=== PATIENT | male | born 1955 | race Caucasian/White ===

== ENCOUNTER → 2016-03-30 | Outpatient (REF) | payer BC ==
[~2016-03-30] MED LIST: AMLO5TAB2 PO; ASPI81TA85 PO; ATOR1TAB21 PO; ATOR40TA PO; CELE-19 PO; GABA300C3 PO; IBUP800T23 PO; METO-346 PO; METO12TA PO; NEUR300C PO; OMEP20CA3 PO; OXYC15TA66 PO; PEG1POW PO; PERCOCET PO; RIFA300C3 PO; VANC10005 INJ; ZANA4TAB PO
== END ==
LOC: MERGE 14:29 → M LAB REF 14:29
PROVIDERS: ATTEND Internal Medicine
DX: R35.8 Other polyuria (principal)

== ENCOUNTER → 2016-03-30 | Outpatient (REF) | payer BC ==
[2016-03-30 15:17] LABS: BASO % 0.2 % (0.0-1.0); EOS # 0.5 K/mm3 (0.0-0.50); EOS % 8.1 % (0.0-3.0); LARGE UNSTAINED CELL # 0.1 K/mm3 (0.0-0.4); LARGE UNSTAINED CELL % 1.4 % (0.0-4.0); LYMPH # 1.5 K/mm3 (1.5-4.5); LYMPH % 23.1 % (24.0-44.0); MEAN CORPUSCULAR HEMOGLOBIN 28.6 pg (27.0-33.0); MEAN CORPUSCULAR HGB CONC 33.3 g/dl (32.0-36.5); MEAN CORPUSCULAR VOLUME 85.9 fl (80.0-96.0); MONO # 0.4 K/mm3 (0.0-0.8); MONO % 6.9 % (0.0-5.0); NEUTROPHILS # 3.9 K/mm3 (1.8-7.7); NEUTROPHILS % 60.3 % (36.0-66.0); PLATELET COUNT, AUTOMATED 197 k/mm3 (150-450); RED CELL DISTRIBUTION WIDTH 13.4 % (11.5-14.5); WHITE BLOOD COUNT 6.4 K/mm3 (4.0-10.0)
[2016-03-30 15:56] LABS: ALBUMIN 3.2 GM/DL (3.2-5.2); ALBUMIN/GLOBULIN RATIO 0.91 (1.00-1.93); ALKALINE PHOSPHATASE 129 U/L (45-117); ALT/SGPT 33 U/L (12-78); ANION GAP 8 MEQ/L (8-16); AST/SGOT 14 U/L (15-37); BILIRUBIN,TOTAL 0.3 MG/DL (0.2-1.0); BLOOD UREA NITROGEN 19 MG/DL (7-18); CALCIUM LEVEL 8.1 MG/DL (8.5-10.1); CARBON DIOXIDE LEVEL 27 MEQ/L (21-32); CHLORIDE LEVEL 103 MEQ/L (98-107); CREATININE FOR GFR 0.76 MG/DL (0.70-1.30); GLOMERULAR FILTRATION RATE > 60.0 (>56); GLUCOSE, FASTING 82 MG/DL (70-105); POTASSIUM SERUM 4.3 MEQ/L (3.5-5.1); SODIUM LEVEL 138 MEQ/L (136-145); TOTAL PROTEIN 6.7 GM/DL (6.4-8.2)
== END ==
LOC: MERGE 14:31 → M LAB REF 14:31
PROVIDERS: ATTEND Internal Medicine Infectious Disease
DX: M46.40 Discitis, unspecified, site unspecified (principal)

== ENCOUNTER → 2016-04-01 | Outpatient (CLI) | payer BC ==
--- NOTE | 2016-04-08 00:19 | ECWPNPC ---
PATIENT NAME: FRIDA DAN : 1955 GENDER: MALE VISIT DATE: 04/01/2016 DISCHARGE DATE: 04/01/16 1238 VISIT LOCKED DATE TIME: PHYSICIAN: NEAL ROBLERO RESOURCE: NEAL ROBLERO REASON FOR APPOINTMENT 1. BACK PAIN HISTORY OF PRESENT ILLNESS NEW PATIENT CONSULT: 60 Y/O GENTLEMEN REFERRED BY DR. BERKOWITZ FOR EVALUATION OF CHRONIC LOW BACK PAIN WITH RECENT HOSPITALIZATION FOR OSTEOMYELITIS/DISCITIS OF LUMBAR SPINE.DISCHARGED ON MARCH 20.USING OXYCODONE 15MG 2 TABS BID AND PERCOCET 5/325 3 TAB PRN DAILY.FINDS MEDICATION SOMEWHAT HELPFUL.RATING PAIN VAS 6/10.PAIN IS AGGREVATED BY SITTING.RAN OUT OF MEDICATION -OXYCODONE 15MG 2 TAB BID RECENTLY.DESCRIBES PAIN CONSTANT AND ACHING.CONTINUES TO RECIEVE IV ANTIBIOTICS PRESCRIBED BY DR. HERNANDEZ.STATES HE HAS NOT DRANK ETOH IN 2 MOS. WHEN DID YOUR PAIN FIRST START? . BRIEFLY DESCRIBE HOW YOUR PAIN STARTED? . HOW DOES YOUR PAIN CHANGE WITH TIME? . DOES YOUR PAIN AWAKEN YOU FROM SLEEP? . HOW MANY HOURS OF SLEEP DO YOU NORMALLY GET? . ANY DIAGNOSTIC TESTING? . FACILITY WHERE TESTS WERE DONE? ____. PAIN TREATMENT TREATMENT YES CANCER HAVE YOU EVER HAD ANY TYPE OF CANCER?NO NO. PAIN SCREENING: PATIENT HAS A COMPLAINT OF ACUTE OR CHRONIC PAIN YES FALL RISK SCREENING: SCREENING :NO FALLS IN THE PAST YEAR INVENTORY: QUESTIONNAIRE ASSESSEDTBD SCORE VALUE CALCULATED TBD CURRENT MEDICATIONS TAKING AMLODIPINE BESYLATE 5 MG TABLET 1 TABLET ORALLY ONCE A DAY TAKING TEFLARO 600 MG SOLUTION RECONSTITUTED 600 MG INTRAVENOUS EVERY 12 HOURS TAKING OMEPRAZOLE 20 MG CAPSULE DELAYED RELEASE 1 CAPSULES ORALLY ONCE A DAY TAKING METOPROLOL TARTRATE 25 MG TABLET ONE HALF ORALLY TWICE A DAY, NOTES: 12.5 MG BID TAKING TIZANIDINE HCL 4 MG CAPSULE 1 CAPSULE NEEDED ORALLY THREE TIMES A DAY PRN TAKING TYLENOL 325 MG TABLET 2 TABLETS NEEDED ORALLY EVERY 6 HRS TAKING ASPIRIN 81 MG TABLET CHEWABLE 1 TABLET ORALLY ONCE A DAY TAKING ATORVASTATIN CALCIUM 40 MG TABLET 1 TABLET ORALLY ONCE A DAY TAKING OXYCONTIN 30 MG TABLET ER 12 HOUR ABUSE-DETERRENT 1 TABLET ORALLY EVERY 12 HRS/MMD#2 TAKING GABAPENTIN 300 MG CAPSULE 1 CAPSULE ORALLY THREE TIMES DAILY TAKING CELEBREX 200 MG CAPSULE 1 CAPSULE ORALLY TWICE DAILY TAKING OXYCODONE-ACETAMINOPHEN 5-325 MG TABLET 1 TABLET NEEDED ORALLY EVERY 6 HRS NEEDED: MDD 2 TAKING RIFAMPIN 300 MG CAPSULE 1 CAP ORALLY THREE TIMES DAILY MEDICATION LIST REVIEWED AND RECONCILED WITH THE PATIENT PAST MEDICAL HISTORY DISCITIS OF THE LUMBAR SPINE JANUARY 2016 LOW BACK PAIN FOR YEARS FROM THROWING HAYBALES CONSTIPATION SECONDARY TO CHRONIC OPIATES GERD 1 YEAR OMEPRAZOLE FATTY LIVER FOUND ON CT OLD 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 ADVANCED DIRECTIVES HEALTH CARE PROXY?NO POWER OF RETURN TO VENDOR?NO SCREENING/ASSESSMENT TOOL NUTRITION ASSESSEDYES ARE YOU ON ANY SPECIAL DIET?NO ANY SIGNIFICANT CHANGES RELATED TO EATING, WEIGHT GAIN/LOSS, OR BOWEL HABITS?NO IF YES, IS YOUR PRIMARY CARE PROVIDER AWARE OF THIS?NO SPECIAL NEEDS LEVEL OF CARE? SELF, GLASSES: NO, CONTACTS: NO, HEARING AIDS: NO, DENTURES: NO, WALKER: NO, CANE: NO, WHEELCHAIR: NO, REFERRALS NEEDED: NO. TOBACCO USE ARE YOU A:NONSMOKER CAFFEINE CAFFEINE USE?NO RECREATIONAL DRUG USE DRUG USE?NO REVIEW OF SYSTEMS CONSTITUTIONAL: RECENT ILLNESS DENIES . ANY CHANGE IN YOUR MEDICAL CONDITION? NO . CHILLS NO . FEVER NO, DENIES . WEIGHT LOSS DENIES . INFECTION: DO YOU HAVE NEW INFECTIONS? NO . DO YOU HAVE HISTORY OF MRSA? NO . MUSCULOSKELETAL: ANY NEW PATTERNS OF PAIN OR NUMBNESS? NO . SYTEMIC LUPUS NO . JOINT PAIN DENIES . JOINT STIFFNESS DENIES . GASTROENTEROLOGY: BOWEL INCONTINENCE DENIES . ANY NEW CHANGE IN BOWEL CONTROL? NO . BARRETTS ESOPHAGUS NO . CIRRHOSIS NO . HEPATITIS NO . LIVER FAILURE NO . ACID REFLUX NO . BLOOD IN STOOL DENIES . UNEXPLAINED WEIGHT LOSS NO . GENITOURINARY: ANY NEW CHANGE IN BLADDER CONTROL? NO . IS THERE A CHANCE YOU COULD BE ? NO . HEMATOLOGY/LYMPH: DENIES . BLEEDING DISORDER DENIES . DO YOU TAKE ANY BLOOD THINNERS? (FOR EXAMPLE- COUMADIN, PLAVIX, AGGRENOX, PLATEL, PRADAXA, OR XARELTO) NO . WHEN WAS YOUR LAST DOSE? DATE: TIME: . LOW PLATELET COUNT NO . SICKLE CELL DISEASE NO . VON WILLIEBRANDS NO . FACTOR V LEIDEN NO . THALLASEMIA NO . ANEMIA NO . EASY BRUISING NO . NEUROLOGY: HAVE YOU FALLEN IN THE PAST 6 MONTHS? NO . ANY NEW EXTREMITY NUMBNESS OR WEAKNESS? NO . HEAD INJURY NO . DEMENTIA NO . CEREBRAL PALSY NO . MULTIPLE SCLEROSIS NO . DIZZINESS NO . HEADACHE NO, DENIES . SEIZURES DENIES . STROKES NO . VERTIGO NO . CARDIOLOGY: DO YOU HAVE A PACEMAKER OR DEFIBRILLATOR? NO . ANGINA NO . HEART ATTACK NO . HEART SURGERY NO . CONGESTIVE HEART FAILURE/FLUID OVERLOAD NO . CHEST PAIN NO, DENIES . HIGH BLOOD PRESSURE NO . IRREGULAR HEART BEAT NO . SHORTNESS OF BREATH DENIES . RESPIRATORY: HAVE YOU BEEN SICK IN THE PAST WEEK? NO . FEVER NO . FLU LIKE SYMPTOMS? NO . CPAP NO . BYPAP NO . ASTHMA NO . EMPHYSEMA NO . CHRONIC LUNG DISEASES NO . SHORTNESS OF BREATH ON EXERTION NO . DO YOU USE ANY TYPE OF TOBACCO (SMOKE, SMOKELESS, CHEW)? NO . COUGH NO, DENIES . SHORTNESS OF BREATH DENIES . SNORING NO . INTEGUMENTARY: DO YOU HAVE ANY RASHES OR OPEN SORES? NO . ALLERGIC/IMMUNO: ARE YOU ALLERGIC TO SHELLFISH OR IV DYE? NO . ANY NEW ALLERGIES? NO . PSYCHIATRIC: DO YOU HAVE THOUGHTS OF HURTING YOURSELF OR SOMEONE ELSE? NO . ARE YOU ABUSED, NEGLECTED, OR IN AN UNSAFE ENVIRONMENT? NO . ENDOCRINOLOGY: THYROID DISEASE DENIES . ARE YOU DIABETIC? NO . DIABETES DENIES . THYROID DISORDER NO . OTHER: DO YOU NEED ANY PRESCRIPTIONS? NO . IF YES, PLEASE LIST: ____ . ANY NEW PROBLEMS WITH YOUR MEDICATIONS? NO . WHEN DID YOU LAST EAT? ____ . WHEN DID YOU LAST DRINK? ____ . WHAT DID YOU LAST DRINK? ____ . NAME OF PERSON DRIVING YOU HOME? ____ . DO YOU HAVE ANY OTHER QUESTIONS OR CONCERNS NO . HEENT: CHANGE IN VISION DENIES . LOSS OF HEARING DENIES . TROUBLE SWALLOWING DENIES . PSYCHOLOGY: ANXIETY DENIES . DEPRESSION DENIES . UROLOGY: URINARY INCONTINENCE DENIES . BLOOD IN URINE DENIES . REVIEWED BY: PROVIDER: NEAL CAGLE . VITAL SIGNS WT 223.8 LBS, HT 72 IN, BMI 30.35 INDEX, BP 143/88 MM HG, HR 74 /MIN, RR 20 /MIN, TEMP 98.8 F, OXYGEN SAT % 97%, NA INITIALS SC 11:45. EXAMINATION GENERAL EXAMINATION: HEENT:HEAD:, NORMOCEPHALIC, EYES:, EYES NORMAL, NOSE:, NOSE CLEAR, THROAT: NORMAL. LUNGS:LUNG SOUNDS ARE CLEAR. HEART:HEART RATE REGULAR. ABDOMEN:SOFT AND NOT TENDER, NON-DISTENDED. MUSCULOSKELETAL:*. LUMBAR SACRAL SPINEMUSCLE STRENGTH TESTING 5/5 BILATERAL LOWER EXTREMITIES., PALPATION: + FOR PAIN OVER L/S SPINE. + FOR PAIN OVER L/S PARASPINALS.. THORACIC SPINENEGATIVE FOR PAIN WITH PALPATION OF THORACIC SPINE. NEGATIVE FOR PAIN WITH PALPATION OF THORACIC PARASPINAL. CERVICALNEGATIVE FOR PAIN WITH PALPATION OF CERVICAL SPINE. NEGATIVE FOR PAIN WITH PALPATION OF CERVICAL PARASPINALS. NEGATIVE FOR PAIN WITH PALPATION OF TRAPEZIUS BILAT. SKIN:NORMAL, NO RASH. NEUROLOGIC EXAM:ALERT AND ORIENTED X 3, DTRS 1-2+ IN ALL 4 EXTREMITIES, DENIES UPPER EXTREMETIES SENSORY LOSS, DENIES LOWER EXTREMETIES SENSORY LOSS. DIAGNOSTIC: . 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 RISKS AND BENEFITS OF NARCOTIC/OPIOD MEDICATIONS WERE REVIEWED WITH PATIENT - THIS INCLUDES BUT IS NOT LIMITED TO RISK OF DEPENDANCE/DEVELOPMENT OF ADDICTION, MOOD DISTURBANCE AND DEPRESSION, OSTEOPOROSIS, HORMONAL AND LABIDAL CHANGES, RESPIRATORY DEPRESSION AND . PATIENT IS ADVISED NOT TO DRIVE WHILE ON THESE MEDICATIONS. OTHERS START OXYCONTIN TABLET ER 12 HOUR ABUSE-DETERRENT, 20 MG, 1 TABLET, ORALLY, Q8H TID MDD3, 30 DAY(S), 90, REFILLS 0 START PERCOCET TABLET, 5-325 MG, 1 TABLET NEEDED, ORALLY, Q8H PRN MDD3, 30 DAY(S), 45, REFILLS 0 CLINICAL NOTES: ISTOP REGISTRY REVIEWED AND DEMONSTRATES COMPLIANCE. PROCEDURE CODES FA211 ESTABILISHED PATIENT [facility] CHARGE DISPOSITION & COMMUNICATION FOLLOW UP 3 WEEKS ELECTRONICALLY SIGNED BY GURJIT GEIGER ON 04/07/2016 AT 05:09 PM EST DISCLAIMER : THIS IS A VISIT SUMMARY EXTRACTED FROM THE [email or web address] CHART. IT IS NOT A COPY OF THE [email or web address] PROGRESS NOTE. JESSIE
== END ==
LOC: M PAIN 11:20
PROVIDERS: ATTEND Nurse Practitioner Family
DX: M46.46 Discitis, unspecified, lumbar region (principal); M86.28 Subacute osteomyelitis, other site; G89.29 Other chronic pain; Z79.891 Long term (current) use of opiate analgesic; Z79.82 Long term (current) use of aspirin; Z79.2 Long term (current) use of antibiotics; Z79.899 Other long term (current) drug therapy; I10 Essential (primary) hypertension; I25.10 Atherosclerotic heart disease of native coronary artery without angina pectoris; E78.5 Hyperlipidemia, unspecified

== ENCOUNTER → 2016-04-08 | Outpatient (REF) | payer BC ==
[2016-04-08 12:23] LABS: BASO % 0.4 % (0.0-1.0); EOS # 0.6 K/mm3 (0.0-0.50); EOS % 9.3 % (0.0-3.0); LARGE UNSTAINED CELL # 0.1 K/mm3 (0.0-0.4); LARGE UNSTAINED CELL % 0.7 % (0.0-4.0); LYMPH # 1.2 K/mm3 (1.5-4.5); LYMPH % 16.9 % (24.0-44.0); MEAN CORPUSCULAR HEMOGLOBIN 28.6 pg (27.0-33.0); MEAN CORPUSCULAR VOLUME 86.9 fl (80.0-96.0); MONO # 0.4 K/mm3 (0.0-0.8); MONO % 5.6 % (0.0-5.0); NEUTROPHILS # 4.7 K/mm3 (1.8-7.7); NEUTROPHILS % 67.1 % (36.0-66.0); PLATELET COUNT, AUTOMATED 147 k/mm3 (150-450); RED CELL DISTRIBUTION WIDTH 14.3 % (11.5-14.5)
[2016-04-08 12:47] LABS: ALBUMIN 3.3 GM/DL (3.2-5.2); ALBUMIN/GLOBULIN RATIO 0.94 (1.00-1.93); ALKALINE PHOSPHATASE 106 U/L (45-117); ALT/SGPT 25 U/L (12-78); ANION GAP 10 MEQ/L (8-16); AST/SGOT 11 U/L (15-37); BILIRUBIN,TOTAL 0.3 MG/DL (0.2-1.0); BLOOD UREA NITROGEN 18 MG/DL (7-18); CALCIUM LEVEL 8.6 MG/DL (8.5-10.1); CARBON DIOXIDE LEVEL 27 MEQ/L (21-32); CHLORIDE LEVEL 104 MEQ/L (98-107); CREATININE FOR GFR 0.85 MG/DL (0.70-1.30); GLOMERULAR FILTRATION RATE > 60.0 (>56); GLUCOSE, FASTING 93 MG/DL (70-105); POTASSIUM SERUM 4.5 MEQ/L (3.5-5.1); SODIUM LEVEL 141 MEQ/L (136-145); TOTAL PROTEIN 6.8 GM/DL (6.4-8.2)
== END | disposition home or self-care (01) ==
LOC: M SFHCPLAZ 10:36
PROVIDERS: ATTEND Internal Medicine Infectious Disease
DX: M46.46 Discitis, unspecified, lumbar region (principal)

== ENCOUNTER → 2016-04-22 | Outpatient (CLI) | payer BC ==
--- NOTE | 2016-04-23 00:23 | ECWPNPC ---
PATIENT NAME: FRIDA DAN : 1955 GENDER: MALE VISIT DATE: 04/22/2016 DISCHARGE DATE: 04/22/16 1109 VISIT LOCKED DATE TIME: PHYSICIAN: NEAL ROBLERO RESOURCE: NEAL ROBLERO REASON FOR APPOINTMENT 1. BACK PAIN HISTORY OF PRESENT ILLNESS HISTORY OF PRESENT ILLNESS: PAIN THE PATIENT DESCRIBES THE PAIN... FALL RISK SCREENING: SCREENING :NO FALLS IN THE PAST YEAR NEW PATIENT CONSULT: 60 Y/O GENTLEMEN REFERRED BY DR. BERKOWITZ FOR EVALUATION OF CHRONIC LOW BACK PAIN WITH RECENT HOSPITALIZATION FOR OSTEOMYELITIS/DISCITIS OF LUMBAR SPINE.DISCHARGED ON MARCH 20.WAS UNABLE TO GET OXYCONTIN THROUGH INSURANCE.RATING PAIN VAS 4/10.USING PERCOCET 5/325 4-5 PER DAY WHICH IS HELPFUL.KEEPING PAIN VAS 4/10.DISCUSSED RECONDITIONING PROGRAM /WALKING PROGRAM.PATIENT WANTS TO BE ABLE TO SWING [employer].ALSO WE DISCUSSED PLAN TO REDUCE AND DISCONTINUE PERCOCET WHICH WILL HAPPEN OVER THE NEXT THREE MONTHS CONTINGENT ON HIM ACTIVELY DOING RECONDITION /WALKING PROGRAM.PATIENT IS RECEPTIVE. WHEN DID YOUR PAIN FIRST START? . BRIEFLY DESCRIBE HOW YOUR PAIN STARTED? . HOW DOES YOUR PAIN CHANGE WITH TIME? . DOES YOUR PAIN AWAKEN YOU FROM SLEEP? . HOW MANY HOURS OF SLEEP DO YOU NORMALLY GET? . ANY DIAGNOSTIC TESTING? . FACILITY WHERE TESTS WERE DONE? ____. PAIN TREATMENT TREATMENT YES CANCER HAVE YOU EVER HAD ANY TYPE OF CANCER?NO NO. CURRENT MEDICATIONS TAKING OMEPRAZOLE 20 MG CAPSULE DELAYED RELEASE 1 CAPSULES ORALLY ONCE A DAY TAKING TYLENOL 325 MG TABLET 2 TABLETS NEEDED ORALLY EVERY 6 HRS TAKING AMLODIPINE BESYLATE 5 MG TABLET 1 TABLET ORALLY ONCE A DAY TAKING METOPROLOL TARTRATE 25 MG TABLET ONE HALF ORALLY TWICE A DAY, NOTES: 12.5 MG BID TAKING ASPIRIN 81 MG TABLET CHEWABLE 1 TABLET ORALLY ONCE A DAY TAKING ATORVASTATIN CALCIUM 40 MG TABLET 1 TABLET ORALLY ONCE A DAY TAKING TIZANIDINE HCL 4 MG CAPSULE 1 CAPSULE NEEDED ORALLY THREE TIMES A DAY PRN TAKING GABAPENTIN 300 MG CAPSULE 1 CAPSULE ORALLY THREE TIMES DAILY TAKING CELEBREX 200 MG CAPSULE 1 CAPSULE ORALLY TWICE DAILY TAKING PERCOCET 5-325 MG TABLET 1 TABLET NEEDED ORALLY Q8H PRN MDD3 TAKING RIFAMPIN 300 MG CAPSULE 1 CAP ORALLY THREE TIMES DAILY TAKING TEFLARO 600 MG SOLUTION RECONSTITUTED 600 MG INTRAVENOUS EVERY 12 HOURS TAKING BACTRIM DS 800-160 MG TABLET 1 TABLET ORALLY TWICE A DAY NOT-TAKING OXYCONTIN 30 MG TABLET ER 12 HOUR ABUSE-DETERRENT 1 TABLET ORALLY EVERY 12 HRS BID MDD2 MEDICATION LIST REVIEWED AND RECONCILED WITH THE PATIENT PAST MEDICAL HISTORY DISCITIS OF THE LUMBAR SPINE JANUARY 2016 LOW BACK PAIN FOR YEARS FROM THROWING HAYBALES CONSTIPATION SECONDARY TO CHRONIC OPIATES GERD 1 YEAR OMEPRAZOLE FATTY LIVER FOUND ON CT OLD LACUNAR CVA ON CT RIGHT ANKLE SPRAIN CHILDHOOD HYPERTENSION HLD ASCVD RISK 11.2% IN JANUARY 2016 ALCOHOL ABUSE SOCIAL HISTORY GENERAL: TOBACCO USE ARE YOU A:NONSMOKER LEARNING BARRIERS / SPECIAL NEEDS ORIENTED TO PLAN OF CARE: PATIENT, PAIN MANAGEMENT PATIENT, ORIENTED TO PLAN OF CARE: PATIENT, PAIN MANAGEMENT PATIENT. NEW PATIENT PAIN DIARY TODAY'S VISITNOTES FROM 0-10, WHAT LEVEL IS YOUR PAIN TODAY?0 PAIN CLINIC PFS, CLERGY, PUBLIC HEALTH REFERRALS PFS REFERRAL NEEDED?NO CLERGY REFERRAL NEEDED?NO PUBLIC HEALTH REFERRAL NEEDED?NO WAS THE PROVIDER NOTIFIED OF ANY PERTINENT INFO?NO PFS REFERRAL NEEDED?NO CLERGY REFERRAL NEEDED?NO PUBLIC HEALTH REFERRAL NEEDED?NO WAS THE PROVIDER NOTIFIED OF ANY PERTINENT INFO?NO REVIEW OF SYSTEMS CONSTITUTIONAL: ANY CHANGE IN YOUR MEDICAL CONDITION? NO . CHILLS NO . FEVER NO . INFECTION: DO YOU HAVE NEW INFECTIONS? NO . DO YOU HAVE HISTORY OF MRSA? NO . MUSCULOSKELETAL: ANY NEW PATTERNS OF PAIN OR NUMBNESS? NO . GASTROENTEROLOGY: ANY NEW CHANGE IN BOWEL CONTROL? NO . GENITOURINARY: ANY NEW CHANGE IN BLADDER CONTROL? NO . IS THERE A CHANCE YOU COULD BE ? NO . HEMATOLOGY/LYMPH: DO YOU TAKE ANY BLOOD THINNERS? (FOR EXAMPLE- COUMADIN, PLAVIX, AGGRENOX, PLATEL, PRADAXA, OR XARELTO) NO . WHEN WAS YOUR LAST DOSE? DATE: TIME: . NEUROLOGY: HAVE YOU FALLEN IN THE PAST 6 MONTHS? NO . ANY NEW EXTREMITY NUMBNESS OR WEAKNESS? NO . CARDIOLOGY: DO YOU HAVE A PACEMAKER OR DEFIBRILLATOR? NO . RESPIRATORY: HAVE YOU BEEN SICK IN THE PAST WEEK? NO . FEVER NO . FLU LIKE SYMPTOMS? NO . COUGH NO . INTEGUMENTARY: DO YOU HAVE ANY RASHES OR OPEN SORES? NO . ALLERGIC/IMMUNO: ARE YOU ALLERGIC TO SHELLFISH OR IV DYE? NO . ANY NEW ALLERGIES? NO . PSYCHIATRIC: DO YOU HAVE THOUGHTS OF HURTING YOURSELF OR SOMEONE ELSE? NO . ARE YOU ABUSED, NEGLECTED, OR IN AN UNSAFE ENVIRONMENT? NO . ENDOCRINOLOGY: ARE YOU DIABETIC? NO . OTHER: DO YOU NEED ANY PRESCRIPTIONS? NEEDS A LONG ACTING PAIN RELEIVER THAT HAS BEEN APPROVED . IF YES, PLEASE LIST: ____ . ANY NEW PROBLEMS WITH YOUR MEDICATIONS? NO . WHEN DID YOU LAST EAT? ____ . WHEN DID YOU LAST DRINK? ____ . WHAT DID YOU LAST DRINK? ____ . NAME OF PERSON DRIVING YOU HOME? ____ . DO YOU HAVE ANY OTHER QUESTIONS OR CONCERNS NO . REVIEWED BY: PROVIDER: NEAL CAGLE . VITAL SIGNS WT 230 LBS, HT 71", BMI 32.07 INDEX, BP 130/77 MM HG, HR 75 /MIN, RR 18 /MIN, TEMP 99.2 F, OXYGEN SAT % 95%, NA INITIALS SC 10:32. EXAMINATION GENERAL EXAMINATION: HEENT:HEAD:, NORMOCEPHALIC, EYES:, EYES NORMAL, NOSE:, NOSE CLEAR, THROAT: NORMAL. LUNGS:LUNG SOUNDS ARE CLEAR. HEART:HEART RATE REGULAR. ABDOMEN:SOFT AND NOT TENDER, NON-DISTENDED. MUSCULOSKELETAL:*. LUMBAR SACRAL SPINEMUSCLE STRENGTH TESTING 5/5 BILATERAL LOWER EXTREMITIES., PALPATION: + FOR PAIN OVER L/S SPINE. + FOR PAIN OVER L/S PARASPINALS.. THORACIC SPINENEGATIVE FOR PAIN WITH PALPATION OF THORACIC SPINE. NEGATIVE FOR PAIN WITH PALPATION OF THORACIC PARASPINAL. CERVICALNEGATIVE FOR PAIN WITH PALPATION OF CERVICAL SPINE. NEGATIVE FOR PAIN WITH PALPATION OF CERVICAL PARASPINALS. NEGATIVE FOR PAIN WITH PALPATION OF TRAPEZIUS BILAT. SKIN:NORMAL, NO RASH. NEUROLOGIC EXAM:ALERT AND ORIENTED X 3, DTRS 1-2+ IN ALL 4 EXTREMITIES, DENIES UPPER EXTREMETIES SENSORY LOSS, DENIES LOWER EXTREMETIES SENSORY LOSS. DIAGNOSTIC: . 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 THEY WERE ADVISED THAT THIS WILL IMPROVE WEIGHT LOSS AND ALSO DEPRESSION/FIBROMYALGIA SYMPTOMS. ADVISED TO WALK 10 MINUTES EVERY OTHER DAY ON A FLAT SURFACE. EMPHASIZED THE IMPORTANCE OF DOING THIS CONSISTANTLY AND NOT SPORATICALLY TO AVOID INJURY. STRONG ADVISED NOT TO DO MORE THAN 10 MINUTES EVERY OTHER DSY FOR THE FIRST 4 WEEKS. PROCEDURE CODES FA211 ESTABILISHED PATIENT [facility] CHARGE DISPOSITION & COMMUNICATION FOLLOW UP 6 WEEKS ELECTRONICALLY SIGNED BY GURJIT GEIGER ON 04/22/2016 AT 01:34 PM EST DISCLAIMER : THIS IS A VISIT SUMMARY EXTRACTED FROM THE [employer] CHART. IT IS NOT A COPY OF THE [employer] PROGRESS NOTE. JESSIE
== END ==
LOC: M PAIN 10:20
PROVIDERS: ATTEND Nurse Practitioner Family
DX: M46.46 Discitis, unspecified, lumbar region (principal); M86.28 Subacute osteomyelitis, other site; G89.29 Other chronic pain; Z79.891 Long term (current) use of opiate analgesic; Z79.899 Other long term (current) drug therapy; Z79.82 Long term (current) use of aspirin; Z79.2 Long term (current) use of antibiotics; I10 Essential (primary) hypertension; E78.5 Hyperlipidemia, unspecified; E66.9 Obesity, unspecified; K21.9 Gastro-esophageal reflux disease without esophagitis; F10.10 Alcohol abuse, uncomplicated

== ENCOUNTER → 2016-04-24 | Outpatient (REF) | payer BC ==
[2016-04-24 17:09] LABS: BASO % 0.6 % (0.0-1.0); EOS # 0.5 K/mm3 (0.0-0.50); EOS % 8.3 % (0.0-3.0); LARGE UNSTAINED CELL # 0.1 K/mm3 (0.0-0.4); LARGE UNSTAINED CELL % 0.9 % (0.0-4.0); LYMPH # 1.5 K/mm3 (1.5-4.5); LYMPH % 24.5 % (24.0-44.0); MEAN CORPUSCULAR HEMOGLOBIN 28.8 pg (27.0-33.0); MEAN CORPUSCULAR HGB CONC 32.7 g/dl (32.0-36.5); MONO # 0.3 K/mm3 (0.0-0.8); MONO % 5.1 % (0.0-5.0); NEUTROPHILS # 3.5 K/mm3 (1.8-7.7); NEUTROPHILS % 60.6 % (36.0-66.0); PLATELET COUNT, AUTOMATED 165 k/mm3 (150-450); RED CELL DISTRIBUTION WIDTH 14.6 % (11.5-14.5); WHITE BLOOD COUNT 5.8 K/mm3 (4.0-10.0)
[2016-04-24 17:20] LABS: ALBUMIN 3.8 GM/DL (3.2-5.2); ALBUMIN/GLOBULIN RATIO 1.15 (1.00-1.93); ALKALINE PHOSPHATASE 105 U/L (45-117); ALT/SGPT 36 U/L (12-78); ANION GAP 8 MEQ/L (8-16); AST/SGOT 22 U/L (15-37); BILIRUBIN,TOTAL 0.2 MG/DL (0.2-1.0); BLOOD UREA NITROGEN 22 MG/DL (7-18); CALCIUM LEVEL 9.1 MG/DL (8.5-10.1); CARBON DIOXIDE LEVEL 28 MEQ/L (21-32); CHLORIDE LEVEL 107 MEQ/L (98-107); CREATININE FOR GFR 0.96 MG/DL (0.70-1.30); GLOMERULAR FILTRATION RATE > 60.0 (>56); GLUCOSE, FASTING 126 MG/DL (70-105); POTASSIUM SERUM 3.9 MEQ/L (3.5-5.1); SODIUM LEVEL 143 MEQ/L (136-145); TOTAL PROTEIN 7.1 GM/DL (6.4-8.2)
== END ==
LOC: M SFHCPLAZ 14:29
DX: M46.46 Discitis, unspecified, lumbar region (principal)

== ENCOUNTER → 2016-05-07 | Outpatient (REF) | payer BC ==
[2016-05-07 13:23] LABS: BASO % 0.4 % (0.0-1.0); EOS # 0.4 K/mm3 (0.0-0.50); EOS % 5.9 % (0.0-3.0); LARGE UNSTAINED CELL # 0.1 K/mm3 (0.0-0.4); LARGE UNSTAINED CELL % 1.4 % (0.0-4.0); LYMPH # 1.6 K/mm3 (1.5-4.5); LYMPH % 24.3 % (24.0-44.0); MEAN CORPUSCULAR HEMOGLOBIN 28.3 pg (27.0-33.0); MEAN CORPUSCULAR HGB CONC 32.2 g/dl (32.0-36.5); MEAN CORPUSCULAR VOLUME 88.1 fl (80.0-96.0); MONO # 0.4 K/mm3 (0.0-0.8); MONO % 5.4 % (0.0-5.0); NEUTROPHILS # 4.1 K/mm3 (1.8-7.7); NEUTROPHILS % 62.6 % (36.0-66.0); PLATELET COUNT, AUTOMATED 148 k/mm3 (150-450); RED CELL DISTRIBUTION WIDTH 14.7 % (11.5-14.5); WHITE BLOOD COUNT 6.6 K/mm3 (4.0-10.0)
[2016-05-07 14:14] LABS: ALBUMIN 3.8 GM/DL (3.2-5.2); ALBUMIN/GLOBULIN RATIO 1.15 (1.00-1.93); ALKALINE PHOSPHATASE 85 U/L (45-117); ALT/SGPT 29 U/L (12-78); ANION GAP 10 MEQ/L (8-16); AST/SGOT 20 U/L (15-37); BILIRUBIN,TOTAL 0.2 MG/DL (0.2-1.0); BLOOD UREA NITROGEN 18 MG/DL (7-18); CALCIUM LEVEL 8.5 MG/DL (8.5-10.1); CARBON DIOXIDE LEVEL 27 MEQ/L (21-32); CHLORIDE LEVEL 102 MEQ/L (98-107); CREATININE FOR GFR 0.93 MG/DL (0.70-1.30); GLOMERULAR FILTRATION RATE > 60.0 (>56); GLUCOSE, FASTING 167 MG/DL (70-105); POTASSIUM SERUM 4.1 MEQ/L (3.5-5.1); SODIUM LEVEL 139 MEQ/L (136-145); TOTAL PROTEIN 7.1 GM/DL (6.4-8.2)
== END ==
LOC: M SFHCPLAZ 12:11
DX: M46.46 Discitis, unspecified, lumbar region (principal)

== ENCOUNTER → 2016-05-28 | Outpatient (REF) | payer BC ==
[~2016-05-28] MED LIST changes: +GABA-282 PO; -GABA300C3 PO
[2016-05-28 12:39] LABS: BASO % 0.6 % (0.0-1.0); EOS # 0.3 K/mm3 (0.0-0.50); EOS % 5.9 % (0.0-3.0); LARGE UNSTAINED CELL # 0.1 K/mm3 (0.0-0.4); LARGE UNSTAINED CELL % 1.6 % (0.0-4.0); LYMPH # 1.5 K/mm3 (1.5-4.5); LYMPH % 27.7 % (24.0-44.0); MEAN CORPUSCULAR HGB CONC 33.8 g/dl (32.0-36.5); MEAN CORPUSCULAR VOLUME 88.8 fl (80.0-96.0); MONO # 0.4 K/mm3 (0.0-0.8); NEUTROPHILS # 2.9 K/mm3 (1.8-7.7); NEUTROPHILS % 57.3 % (36.0-66.0); PLATELET COUNT, AUTOMATED 134 k/mm3 (150-450); RED CELL DISTRIBUTION WIDTH 15.6 % (11.5-14.5); WHITE BLOOD COUNT 5.1 K/mm3 (4.0-10.0)
[2016-05-28 12:57] LABS: ANION GAP 9 MEQ/L (8-16); BLOOD UREA NITROGEN 16 MG/DL (7-18); CALCIUM LEVEL 9.3 MG/DL (8.5-10.1); CARBON DIOXIDE LEVEL 25 MEQ/L (21-32); CHLORIDE LEVEL 106 MEQ/L (98-107); CREATININE FOR GFR 0.81 MG/DL (0.70-1.30); GLOMERULAR FILTRATION RATE > 60.0 (>56); GLUCOSE, FASTING 142 MG/DL (70-105); POTASSIUM SERUM 4.2 MEQ/L (3.5-5.1); SODIUM LEVEL 140 MEQ/L (136-145)
[2016-05-28 13:08] LABS: ERYTHROCYTE SEDIMENTATION RATE 6 mm/hr (0-20)
== END ==
LOC: M LABDRAW1 11:51
PROVIDERS: ATTEND Internal Medicine Infectious Disease
DX: M46.46 Discitis, unspecified, lumbar region (principal); R73.9 Hyperglycemia, unspecified

== ENCOUNTER → 2016-06-16 | Outpatient (REF) | payer BC ==
[2016-06-16 12:50] LABS: BASO % 0.8 % (0.0-1.0); EOS # 0.4 K/mm3 (0.0-0.50); EOS % 7.5 % (0.0-3.0); LARGE UNSTAINED CELL # 0.1 K/mm3 (0.0-0.4); LARGE UNSTAINED CELL % 2.3 % (0.0-4.0); LYMPH # 1.7 K/mm3 (1.5-4.5); LYMPH % 32.4 % (24.0-44.0); MEAN CORPUSCULAR HEMOGLOBIN 29.6 pg (27.0-33.0); MEAN CORPUSCULAR HGB CONC 33.8 g/dl (32.0-36.5); MEAN CORPUSCULAR VOLUME 87.6 fl (80.0-96.0); MONO # 0.4 K/mm3 (0.0-0.8); MONO % 8.1 % (0.0-5.0); NEUTROPHILS # 2.3 K/mm3 (1.8-7.7); NEUTROPHILS % 48.9 % (36.0-66.0); PLATELET COUNT, AUTOMATED 140 k/mm3 (150-450); RED CELL DISTRIBUTION WIDTH 14.2 % (11.5-14.5); WHITE BLOOD COUNT 4.8 K/mm3 (4.0-10.0)
[2016-06-16 13:19] LABS: ALBUMIN/GLOBULIN RATIO 1.38 (1.00-1.93); ALKALINE PHOSPHATASE 100 U/L (45-117); ALT/SGPT 60 U/L (12-78); ANION GAP 8 MEQ/L (8-16); AST/SGOT 26 U/L (15-37); BILIRUBIN,TOTAL 0.4 MG/DL (0.2-1.0); BLOOD UREA NITROGEN 17 MG/DL (7-18); CALCIUM LEVEL 8.9 MG/DL (8.5-10.1); CARBON DIOXIDE LEVEL 28 MEQ/L (21-32); CHLORIDE LEVEL 101 MEQ/L (98-107); CREATININE FOR GFR 0.96 MG/DL (0.70-1.30); GLOMERULAR FILTRATION RATE > 60.0 (>56); GLUCOSE, FASTING 225 MG/DL (70-105); POTASSIUM SERUM 4.1 MEQ/L (3.5-5.1); SODIUM LEVEL 137 MEQ/L (136-145); TOTAL PROTEIN 6.9 GM/DL (6.4-8.2)
== END ==
LOC: M SFHCPLAZ 08:38
DX: M46.46 Discitis, unspecified, lumbar region (principal)

== ENCOUNTER → 2016-06-25 | Outpatient (REF) | payer BC ==
[2016-06-25 13:20] LABS: ANION GAP 10 MEQ/L (8-16); BLOOD UREA NITROGEN 17 MG/DL (7-18); CARBON DIOXIDE LEVEL 28 MEQ/L (21-32); CHLORIDE LEVEL 101 MEQ/L (98-107); CREATININE FOR GFR 1.01 MG/DL (0.70-1.30); GLOMERULAR FILTRATION RATE > 60.0 (>56); GLUCOSE, FASTING 176 MG/DL (70-105); POTASSIUM SERUM 4.1 MEQ/L (3.5-5.1); SODIUM LEVEL 139 MEQ/L (136-145)
== END ==
LOC: M SFHCPLAZ 07:55
PROVIDERS: ATTEND Family Medicine
DX: R73.09 Other abnormal glucose (principal); F32.1 Major depressive disorder, single episode, moderate

== ENCOUNTER → 2016-07-23 | Outpatient (REF) | payer BC ==
[2016-07-23 13:15] LABS: BASO % 0.7 % (0.0-1.0); EOS # 0.3 K/mm3 (0.0-0.50); LARGE UNSTAINED CELL # 0.1 K/mm3 (0.0-0.4); LARGE UNSTAINED CELL % 1.3 % (0.0-4.0); LYMPH # 1.7 K/mm3 (1.5-4.5); LYMPH % 29.7 % (24.0-44.0); MEAN CORPUSCULAR HEMOGLOBIN 30.1 pg (27.0-33.0); MEAN CORPUSCULAR HGB CONC 33.9 g/dl (32.0-36.5); MONO # 0.4 K/mm3 (0.0-0.8); MONO % 6.6 % (0.0-5.0); NEUTROPHILS # 3.1 K/mm3 (1.8-7.7); NEUTROPHILS % 55.7 % (36.0-66.0); PLATELET COUNT, AUTOMATED 154 k/mm3 (150-450); RED CELL DISTRIBUTION WIDTH 13.9 % (11.5-14.5); WHITE BLOOD COUNT 5.5 K/mm3 (4.0-10.0)
[2016-07-23 13:37] LABS: ANION GAP 12 MEQ/L (8-16); BLOOD UREA NITROGEN 13 MG/DL (7-18); CALCIUM LEVEL 9.5 MG/DL (8.5-10.1); CARBON DIOXIDE LEVEL 24 MEQ/L (21-32); CHLORIDE LEVEL 103 MEQ/L (98-107); CHOLESTEROL LEVEL 130 MG/DL (<200); CREATININE FOR GFR 0.85 MG/DL (0.70-1.30); GLOMERULAR FILTRATION RATE > 60.0 (>56); GLUCOSE, FASTING 122 MG/DL (70-105); POTASSIUM SERUM 4.4 MEQ/L (3.5-5.1); SODIUM LEVEL 139 MEQ/L (136-145); TRIGLYCERIDES LEVEL 139 MG/DL (<150)
[2016-07-23 14:09] LABS: ERYTHROCYTE SEDIMENTATION RATE 4 mm/hr (0-20)
== END ==
LOC: M LABDRAW1 11:45
PROVIDERS: ATTEND Hospitalist
DX: M46.46 Discitis, unspecified, lumbar region (principal); E11.9 Type 2 diabetes mellitus without complications

== ENCOUNTER 2016-08-18 12:49 | Outpatient (RCR) | payer BC ==
[~2016-08-18 12:49] MED LIST changes: -ATOR40TA PO; +ATOR40TA75 PO; -CELE-19 PO; +CELE1CAP4 PO; +IBUP1TAB7 PO; -IBUP800T23 PO; -METO12TA PO; +METO1TAB87 PO
[2016-08-19] MEDS ORDERED: CITA20TA4 (11:01)
[2016-08-19] MEDS ORDERED: METF10004 PO ×2 (11:01)
[2016-08-19] MEDS ORDERED: CELE1CAP4 PO (15:26)
[2016-08-19] MEDS ORDERED: ASPI81TA24 PO (15:26)
[2016-08-19] MEDS ORDERED: LISI10TA4 PO (15:26)
[2016-08-19] MEDS ORDERED: ATOR1TAB21 PO (15:26)
[2016-08-19] MEDS ORDERED: METF-415 PO (15:26)
[2016-08-19] MEDS ORDERED: CITA10TA5 PO (15:26)
[2016-08-19] MEDS ORDERED: TIZA4CAP3 PO (15:26)
[2016-08-19] MEDS ORDERED: GABA-282 PO (15:26)
[2016-08-19] MEDS ORDERED: AMLO2.5T PO (15:26)
[2016-08-19] MEDS ORDERED: OMEP20CA3 PO (15:26)
[2016-08-21] MEDS ORDERED: ASPI325T24 PO (11:35)
== END 2016-08-21 ==
LOC: M PT 12:49
PROVIDERS: ATTEND Internal Medicine
DX: Z51.89 Encounter for other specified aftercare (principal); M46.46 Discitis, unspecified, lumbar region

== ENCOUNTER 2016-08-19 10:43 | Observation (INO) | payer BC ==
[~2016-08-19] VITALS: Ht 180.3 cm; Wt 113.8 kg
[2016-08-19] MEDS ORDERED: CITA20TA4 (11:01)
[2016-08-19] MEDS ORDERED: METF10004 PO ×2 (11:01)
--- NOTE | 2016-08-19 13:18 | REP ---
Clinical: Syncope . Comparison: 02/08/2016 . Findings: The ventricles, sulci, and cisterns are normal in position and appearance. Berry-white differentiation is maintained. No acute intracranial hemorrhage, mass/mass effect, pathology or trauma/injury. No evidence for acute infarction. No extra-axial fluid collection. Calvarium is intact. Paranasal sinuses and mastoid air cells are clear. Impression: Normal noncontrast head CT. No evidence for acute intracranial pathology or trauma/injury. Signed by Bertin Calzada MD 08/19/2016 01:10 P
--- NOTE | 2016-08-19 13:19 | REP ---
Clinical: Syncope . Comparison: 02/09/2016 . Technique: PA. Findings: The mediastinum and cardiac silhouette are normal. The lung bunn are clear and without acute consolidation, effusion, or pneumothorax. The skeletal structures are intact and normal. Impression: 1. No acute cardiopulmonary process. Signed by Bertin Calzada MD 08/19/2016 01:11 P
[2016-08-19 13:39] LABS: BASO # 0.1 K/mm3 (0.0-0.2); BASO % 0.8 % (0.0-1.0); EOS # 0.3 K/mm3 (0.0-0.50); EOS % 4.4 % (0.0-3.0); LARGE UNSTAINED CELL # 0.1 K/mm3 (0.0-0.4); LARGE UNSTAINED CELL % 2.1 % (0.0-4.0); LYMPH # 1.5 K/mm3 (1.5-4.5); LYMPH % 22.5 % (24.0-44.0); MEAN CORPUSCULAR HGB CONC 34.5 g/dl (32.0-36.5); MEAN CORPUSCULAR VOLUME 89.7 fl (80.0-96.0); MONO # 0.4 K/mm3 (0.0-0.8); MONO % 6.5 % (0.0-5.0); NEUTROPHILS # 4.4 K/mm3 (1.8-7.7); NEUTROPHILS % 63.7 % (36.0-66.0); PLATELET COUNT, AUTOMATED 163 k/mm3 (150-450); RED CELL DISTRIBUTION WIDTH 13.4 % (11.5-14.5); WHITE BLOOD COUNT 6.8 K/mm3 (4.0-10.0)
[2016-08-19 13:45] LABS: INR 0.94
[2016-08-19 14:04] LABS: ANION GAP 5 MEQ/L (8-16); BLOOD UREA NITROGEN 24 MG/DL (7-18); CALCIUM LEVEL 8.9 MG/DL (8.5-10.1); CARBON DIOXIDE LEVEL 27 MEQ/L (21-32); CHLORIDE LEVEL 106 MEQ/L (98-107); CREATININE FOR GFR 1.12 MG/DL (0.70-1.30); FREE T4 0.87 NG/DL (0.76-1.46); GLOMERULAR FILTRATION RATE > 60.0 (>56); GLUCOSE, FASTING 114 MG/DL (70-105); POTASSIUM SERUM 4.6 MEQ/L (3.5-5.1); SODIUM LEVEL 138 MEQ/L (136-145)
[2016-08-19] MEDS ORDERED: ASPIRIN 325 MG TAB PO ONE (14:15)
[2016-08-19 14:37] LABS: METHADONE URINE NEGATIVE (NEGATIVE)
[2016-08-19] MEDS: NS 1,000 ML IV SCH (14:44)
[2016-08-19] MEDS ORDERED: ASPI81TA24 PO (15:26)
[2016-08-19] MEDS ORDERED: LISI10TA4 PO (15:26)
[2016-08-19] MEDS ORDERED: CITA10TA5 PO (15:26)
[2016-08-19] MEDS ORDERED: TIZA4CAP3 PO (15:26)
[2016-08-19] MEDS ORDERED: OMEP20CA3 PO (15:26)
[2016-08-19] MEDS ORDERED: ATOR1TAB21 PO (15:26)
[2016-08-19] MEDS ORDERED: CELE1CAP4 PO (15:26)
[2016-08-19] MEDS ORDERED: AMLO2.5T PO (15:26)
[2016-08-19] MEDS ORDERED: METF-415 PO (15:26)
[2016-08-19] MEDS ORDERED: GABA-282 PO (15:26)
--- NOTE | 2016-08-19 17:16 | REP ---
MR angiography the brain without contrast: History: TIA. Technique: 3-D [id number] MR angiography of the brain is acquired in the usual fashion and maximal intensity projection images were generated in rotational format about the vertical and horizontal axes. In addition, source axial T1-weighted images are viewed in cine mode. MR angiographic findings: The distal vertebral arteries are patent and co-dominant. Basilar artery is a little tortuous but widely patent. The posterior cerebral and superior cerebellar vessels are normal and symmetric. The distal internal carotid arteries are unremarkable. Anterior and middle cerebral arteries appear intact. There is no visible serrano aneurysm or arteriovenous malformation. Impression: Unremarkable MR angiography the brain. Signed by Chance Alves MD 08/19/2016 05:07 P
--- NOTE | 2016-08-19 17:25 | REP ---
MRI brain without contrast: History: TIA. . Comparison study: Comparison PET-CT study is from earlier on this date. Technique: Axial and sagittal imaging planes are utilized for T1 and T2-weighted scans. Sequences include spin-echo, fast spin echo, FLAIR, and diffusion weighted sequences. MRI findings: No bony calvarial lesion is seen. Craniocervical junction and upper cervical cord are normal in appearance. There is no MR evidence of significant paranasal sinus disease. No intraorbital abnormality is seen. The lateral, third, and fourth ventricles are normal in size and position. Berry-white differentiation pattern is intact above and below the tentorium. There is mild diffuse volume loss.. For scattered subcortical and periventricular T2 hyperintensities are seen consistent with small vessel changes. There is no evidence of intracranial hemorrhage. No mass, infarction, extra-axial fluid collection or midline shift is seen. No abnormal white matter lesion is seen. Impression: Mild small vessel microvascular changes and diffuse atrophy. Otherwise negative noncontrast brain MRI study. Signed by Chance Alves MD 08/19/2016 05:16 P
--- NOTE | 2016-08-19 18:01 | REP ---
MR angiography of the carotids with out and with IV contrast: History: TIA. Headache and weakness. Gadolinium enhancement dose: 25 mL of intravenous ProHance. Technique: Pre gadolinium-enhanced 2-D [id number] MR angiography and post gadolinium enhanced 3-D MR angiography of the carotids of the neck is acquired. Maximal intensity projection images are generated and viewed rotationally. Source axial and coronal images are reviewed. MR angiographic findings: The great vessel origins are unremarkable. The vertebral arteries are bilaterally patent and codominant. The common carotid arteries are unremarkable bilaterally. There is evidence of minimal plaquing in the carotid bulbs on both sides. There is less than 50% narrowing of the right proximal ICA. No discernible narrowing is seen in the left proximal ICA. Exam is otherwise unremarkable. Impression: No significant plaquing or stenosis seen. Unremarkable carotid MR angiography. Signed by Chance Alves MD 08/19/2016 08:27 P
--- NOTE | 2016-08-19 20:02 | HPEPDOC ---
General Date of Admission Aug 19, 2016 at 17:35 Primary Care Physician: RAMY JEREZ DO Attending Physician: MARCOS DURAN MD Chief Complaint The patient is a 60-year-old male admitted with a reason for visit of TIA. Source: Patient, Family Exam Limitations: No limitations History of Present Illness Mr. Gore states that he is eating breakfast this morning at the [employer] when he began to have a discomfort/ache at the base of the skull, then he began to feel "woozy", but he denied vertigo. He states that he felt as though his legs were very heavy, as if they were made of concrete. He was able to get out to the car, but was moving slowly, he was feeling quite fatigued in the car , and then by the time he got home his arms were also feeling very heavy. He mentioned his symptoms to a friend, who believed that he was having a heart attack and recommended he go into the emergency department. He agreed to do this, but his symptoms began to chacho while he was on his way to the ED, and they have completely resolved prior to his being seen by a physician in the emergency department. The ED physician did speak with neurology who recommended a full workup for TIA, and admission for observation. Home Medications Scheduled Amlodipine Besylate (Amlodipine Besylate) 2.5 Mg Tab, 2.5 MG PO DAILY, (Reported ) Aspirin (Aspirin EC) 81 Mg Tab, 81 MG PO DAILY, (Reported) Atorvastatin Calcium (Atorvastatin Calcium) 20 Mg Tab, 20 MG PO DAILY, (Reported ) Celecoxib (Celebrex) 200 Mg Cap, 200 MG PO BID, (Reported) Citalopram Hydrobromide (Citalopram Hydrobromide) 10 Mg Tab, 10 MG PO DAILY, ( Reported) Gabapentin (Gabapentin) 300 Mg Cap, 300 MG PO TID, (Reported) Lisinopril (Lisinopril) 10 Mg Tab, 10 MG PO DAILY, (Reported) Metformin Hydrochloride (Metformin HCl ER) 1,000 Mg Tab, 1,000 MG PO QPM, ( Reported) Omeprazole (Omeprazole) 20 Mg Cap, 20 MG PO DAILY, (Reported) Tizanidine Hydrochloride (Tizanidine HCl) 4 Mg Cap, 4 MG PO TID, (Reported) Allergies Coded Allergies: No Known Allergies (Unverified , 04/01/16) Past Medical History Medical History 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 GERD Fatty liver [place] CVA Hypertension Hyperlipidemia Surgical History Lumbar biopsy January 2016 Family History Father has diabetes, otherwise no additional chronic problems run in the family Social History * Smoker: former Smoker (quit smoking in September 2014, prior to that he smoked one pack per day since he was 17 years old) Alcohol: rarely Drugs: denies Recent Travel/Sick Contacts: Denies: Recent travel, Recent sick contacts Psychosocial History: No pertinent psych hx Lives at home with his , he is currently disabled secondary to his discitis of the lumbar spine Review of Symptoms Constitutional: Denies: Chills, Fever, Night Sweats Eyes: Denies: Pain, Vision change ENT: Denies: Head Aches, Ear Pain, Dysphagia Skin: Denies: Rash, Lesions, Breakdown Pulmonary: Denies: Dyspnea, Cough Cardiovascular: Denies: Chest Pain, Palpitations, Orthopnea, Paroxysmal Noc. Dyspnea, Lt Headedness Gastrointestinal: Denies: Nausea, Vomiting, Abdominal Pain, Diarrhea Genitourinary: Denies: Dysuria, Frequency, Incontinence, Retention Hematologic: Denies: Bruising, Bleeding Excessively Musculoskeletal: Denies: Neck Pain, Back Pain, Joint Pain, Muscle Pain, Spasms Neurological: Denies: Weakness, Numbness, Change in speech, Confusion Psych: Reports: Mood Normal, Denies: Depression, Memory Issues Physical Examination General Exam: Positive: Alert, No Acute Distress Eye Exam: Positive: PERRLA, Conjunctiva & lids normal, EOMI, Negative: Sclera icteric ENT Exam: Positive: Atraumatic, Mucous membr. moist/pink, Pharynx Normal Neck Exam: Positive: Supple, Negative: JVD, thyromegaly Chest Exam: Positive: Clear to auscultation, Normal air movement Heart Exam: Positive: Rate Normal, Regular Rhythm, Normal S1, Normal S2, Negative: Murmurs, Rubs Telemetry: Positive: No significant arrhythmia Abdomen Exam: Positive: Normal bowel sounds, Soft, Negative: Tenderness, Hepatospenomegaly Extremity Exam: Positive: Normal pulses, Negative: Clubbing, Cyanosis, Edema Skin Exam: Positive: Nl turgor and temperature, Negative: Breakdown, Lesion Neuro Exam: Positive: Normal Gait, Normal Speech, Cranial Nerves 3-12 NL, Reflexes 2+ Psych Exam: Positive: Mental status NL, Mood NL, Oriented x 3 Vital Signs Vital Signs Date Time Temp Pulse Resp B/P (MAP) Pulse Ox O2 Delivery O2 Flow Rate FiO2 08/19/16 15:13 74 95 08/19/16 15:06 138/72 (94) 08/19/16 11:18 18 08/19/16 10:45 97.1 Room Air Laboratory Data Labs 24H Laboratory Tests 2 08/19/16 13:22: White Blood Count 6.8, Red Blood Count 4.59, Hemoglobin 14.2, Hematocrit 41.2L, Mean Corpuscular Volume 89.7, Mean Corpuscular Hemoglobin 31.0, Mean Corpuscular Hemoglobin Concent 34.5, Red Cell Distribution Width 13.4, Platelet Count 163, Neutrophils (%) (Auto) 63.7, Lymphocytes (%) (Auto) 22.5L, Monocytes (%) (Auto) 6.5H, Eosinophils (%) (Auto) 4.4H, Basophils (%) (Auto) 0.8, Neutrophils # (Auto) 4.4, Lymphocytes # (Auto) 1.5, Monocytes # (Auto) 0.4, Eosinophils # (Auto) 0.3, Basophils # (Auto) 0.1, Large Unclassified Cells % 2.1 , Large Unclassified Cells # 0.1, Prothrombin Time 12.7, Prothromb Time International Ratio 0.94, Anion Gap 5L, Glomerular Filtration Rate > 60.0, Lactic Acid Level 1.5, Blood Urea Nitrogen 24H, Creatinine 1.12, Sodium Level 138, Potassium Level 4.6, Chloride Level 106, Carbon Dioxide Level 27, Calcium Level 8.9, Magnesium Level 2.0, Total Creatine Kinase 131, Creatine Kinase MB 1.9, Creatine Kinase MB Relative Index 1.45, Troponin I < 0.02, Thyroid Stimulating Hormone (TSH) 0.815, Free Thyroxine 0.87 08/19/16 13:46: Urine Amphetamines Screen NEGATIVE, Urine Benzodiazepines Screen NEGATIVE, Urine Opiates Screen NEGATIVE, Urine Methadone Screen NEGATIVE, Urine Barbiturates Screen NEGATIVE, Urine Phencyclidine Screen NEGATIVE, Urine Cocaine Metabolite Screen NEGATIVE, Urine Cannabinoids Screen NEGATIVE CBC/BMP Laboratory Tests 08/19/16 13:22 Red Blood Count 4.59, Mean Corpuscular Volume 89.7, Mean Corpuscular Hemoglobin 31.0, Mean Corpuscular Hemoglobin Concent 34.5, Red Cell Distribution Width 13.4 , Neutrophils (%) (Auto) 63.7, Lymphocytes (%) (Auto) 22.5 L, Monocytes (%) ( Auto) 6.5 H, Eosinophils (%) (Auto) 4.4 H, Basophils (%) (Auto) 0.8, Neutrophils # (Auto) 4.4, Lymphocytes # (Auto) 1.5, Monocytes # (Auto) 0.4, Eosinophils # (Auto) 0.3, Basophils # (Auto) 0.1, Calcium Level 8.9 RAD Interpretation STUDY: EKG RAD Interpretation: Other Result Comments: (sinus rhythm with possible right ventricular delay) Problems (1) TIA (transient ischemic attack) Status: Acute (2) Hypertension Status: Chronic (3) Fatty liver Status: Chronic (4) Discitis of lumbar region Status: Chronic (5) GERD (gastroesophageal reflux disease) Status: Chronic Plan / VTE VTE Prophylaxis Ordered?: Yes Plan Plan Noncontrast CT of the hand reveals no evidence for acute intracranial pathology or trauma/injury. MRI of the brain shows mild small vessel microvascular changes and diffuse atrophy, otherwise negative noncontrast brain MRI study. An MR angiogram of the brain and carotids were also conducted which were also unremarkable. EKG shows no acute changes. Cardiac markers are negative, thyroid is within normal limits, urine tox screen is negative, and there are no other concerning laboratory abnormalities. Will admit the patient to PCU for cardiac monitoring under the presumed diagnosis of TIA. He does take a baby aspirin daily, He was given a dose of aspirin in the ED, he is already on a statin. Otherwise, we'll continue his usual regimen of home medications. ED provider spoke with neurology, their consult is still pending. KENDALL WEIR DO Aug 19, 2016 20:02
[2016-08-19 20:20] VITALS: BP 174/90
[2016-08-19] MEDS ORDERED: GLUCAGON FOR INJ 1 MG VIAL (J1610) SC PRN (21:00)
[2016-08-19] MEDS ORDERED: GLUCOSE 4 GM CHEW TABLET PO PRN (21:00)
[2016-08-19] MEDS: HumaLOG INSULIN (NovoLOG) PER UNIT SC SCH (21:00)
[2016-08-19] MEDS ORDERED: DEXTROSE 50% 50 ML SYRINGE IV PRN (21:00)
[2016-08-19] MEDS ORDERED: CelecoXIB (CeleBREX) 100 MG CAP PO SCH (21:00)
[2016-08-19 23:25] VITALS: BP 160/56
[2016-08-19] MEDS: tiZANidine 4 MG TAB PO SCH (23:36)
[2016-08-19] MEDS: GABAPENTIN 300 MG CAP PO SCH (23:37)
[2016-08-20] VITALS (8 sets, daily range): BP systolic 111–158; BP diastolic 60–88
[2016-08-20] MEDS: NS 1,000 ML IV SCH ×2 (03:50→18:19)
[2016-08-20 04:54] LABS: MEAN CORPUSCULAR HGB CONC 34.3 g/dl (32.0-36.5); MEAN CORPUSCULAR VOLUME 90.6 fl (80.0-96.0); RED CELL DISTRIBUTION WIDTH 13.4 % (11.5-14.5)
[2016-08-20 05:21] LABS: ANION GAP 6 MEQ/L (8-16); BLOOD UREA NITROGEN 20 MG/DL (7-18); CALCIUM LEVEL 8.5 MG/DL (8.5-10.1); CARBON DIOXIDE LEVEL 29 MEQ/L (21-32); CHLORIDE LEVEL 105 MEQ/L (98-107); CREATININE FOR GFR 1.04 MG/DL (0.70-1.30); GLOMERULAR FILTRATION RATE > 60.0 (>56); GLUCOSE, FASTING 109 MG/DL (70-105); SODIUM LEVEL 140 MEQ/L (136-145)
--- NOTE | 2016-08-20 07:40 | CR ---
DATE OF CONSULTATION: 08/19/2016 REFERRING PHYSICIAN: Dr. Umesh Sandhu REASON FOR CONSULTATION: Possible transient ischemic attack. HISTORY OF PRESENT ILLNESS: Jf Gore is a 60-year-old man who was at his baseline state of health until this morning when he was having breakfast at a diner with his parents. He felt stiffness in his head and neck, which was mild. He says suddenly started feeling dizzy, described as feeling woozy and lightheaded. His both legs felt heavy. He walked out of the diner to get some fresh air and felt his arms were getting heavy as well. He drove himself to his home. He called a friend, who is a nurse, who advised him to come to [facility] Emergency Department. His son drove him to hospital. By the time he reached hospital, his symptoms had completely resolved. Patient has a history of chronic low back pain due to history of infectious discitis and osteomyelitis in January 2016, which affected his lumbosacral spine. He needed intravenous (IV) antibiotics for 6 weeks. He was hospitalized at [facility] a couple of times and had an attempted biopsy of his lumbosacral discitis and osteomyelitis. He was evaluated by Dr. Tariq and Dr. Kim. He also followed with pain clinic. He currently does not follow with neurosurgery, orthopedics or pain clinic. He denies any seizures, neck pain, dysphagia, dysarthria, diplopia, urinary incontinence. He denies any falls or loss of consciousness. DIAGNOSTIC STUDIES: His MRI of brain showed mild small-vessel ischemic disease of brain. MRA brain and neck were within normal limits. His CBC, metabolic profile and urine toxicology screen were within normal limits. PAST MEDICAL HISTORY: Lumbosacral discitis, osteomyelitis, hypertension, dyslipidemia, chronic low back pain, depression, diabetes, acid reflux. CURRENT MEDICATIONS: - amlodipine 2.5 mg by mouth daily - aspirin 81 mg by mouth daily - Lipitor 20 mg by mouth daily - Celebrex 200 mg by mouth twice a day as needed - Celexa 10 mg by mouth daily - gabapentin 300 mg by mouth three times a day - metformin 1000 mg by mouth twice a day - Prilosec 20 mg by mouth daily - tizanidine 4 mg by mouth daily as needed - lisinopril 10 mg by mouth daily ALLERGIES: None. SOCIAL HISTORY: He is a former smoker. He rarely drinks alcohol. FAMILY HISTORY: Father has diabetes. Grandfather had congestive heart failure. REVIEW OF SYSTEMS: All systems were reviewed and found to be noncontributory except as mentioned in history present illness. PHYSICAL EXAMINATION: Blood pressure 138/72, pulse 74, 95% saturation on room air, respiratory 16. Heart: Regular rate and rhythm. Lungs: Clear to auscultation. Abdomen: Soft, nontender, nondistended. Neurologic examination: Patient is awake, alert, oriented to place, person and time. Normal speech, comprehension and repetition. Extraocular muscles are intact. No facial weakness. Tongue and uvula are midline. 5/5 strength in all four extremities. Deep tendon flexes are 1+ throughout. He has decreased cold, pinprick, vibration sensation in his feet. His gait is mildly unsteady. He uses a cane for ambulation. There is no dysmetria. There is no gross musculoskeletal abnormalities. Ears, nose, throat examination revealed chronic upper airway and oropharynx is Whyte class IV. Teeth perez are visible on his tongue. ASSESSMENT: 1. Transient ischemic attack. 2. Suspected transient ischemic attack in vertebrobasilar distribution. 3. Chronic low back pain due to lumbosacral discitis and osteomyelitis. 4. Rule out cardiac source, coagulopathy and vasculopathy. PLAN: 1. Aspirin 325 mg by mouth daily. 2. Continue treatment of his dyslipidemia and hypertension. 3. Echocardiogram. 4. Blood tests to rule out coagulopathy and vasculopathy. 5. Follow with our office in 2-3 weeks after hospital discharge. Will continue his telemetry monitoring while he is in the hospital. JESSIE
[2016-08-20] MEDS ORDERED: ASPIRIN 81 MG ENTERIC TAB PO SCH ×2 (09:00)
[2016-08-20] MEDS: ENOXAPARIN 40 MG/0.4 ML SYRINGE (J1650) SC SCH (09:36)
[2016-08-20] MEDS: HumaLOG INSULIN (NovoLOG) PER UNIT SC SCH ×4 (09:36→21:00)
[2016-08-20] MEDS: tiZANidine 4 MG TAB PO SCH ×3 (09:38→21:41)
[2016-08-20] MEDS: CitaloPRAM (CeleXA) 10 MG TABLET PO SCH (09:38)
[2016-08-20] MEDS: OMEPRAZOLE 20 MG CAP PO SCH (09:39)
[2016-08-20] MEDS: GABAPENTIN 300 MG CAP PO SCH ×3 (09:39→21:41)
[2016-08-20] MEDS: LISINOPRIL 10 MG TAB PO SCH (09:40)
[2016-08-20] MEDS: ATORVASTATIN 20 MG TAB PO SCH (09:40)
[2016-08-20] MEDS: ASPIRIN ENTERIC 325 MG TAB PO SCH (10:32)
--- NOTE | 2016-08-20 14:17 | IPNPDOC ---
Text Note Date of Service The patient was seen on 08/20/16. NOTE Subjective: Pt denies any recurrent symptoms since admission. Feels well. Objective: Vitals: (see below) General: No acute distress, laying comfortably in bed. HEENT: Moist mucous membranes. Neck: No JVD or lymphadenopathy Cardiac: RRR, No murmurs Pulm: Clear to auscultation b/l. No wheezing, rhonchi Abd: NT/ND + BS. Obese Ext: No edema or cyanosis Neuro: Strength 5/5 BUE and BLE. CN 2-12 intact. F to N intact Labs (see below) Images: MRI brain 08/20/16 Impression: Mild small vessel microvascular changes and diffuse atrophy. Otherwise negative noncontrast brain MRI study. MRA Brain 08/20/16 Impression: Unremarkable MR angiography the brain. MRA Carotid 08/20/16 Impression: No significant plaquing or stenosis seen. Unremarkable carotid MR angiography. CXR 08/20/16 Impression: 1. No acute cardiopulmonary process. Assessment/Plan 1. TIA - ?posterior circulation - on aspirin and statin. MRI/MRA brain (see above). Evaluated by neurology. Will need outpatient follow-up. Continue monitoring dermatology. Echocardiogram pending. 2. Hypertension- controlled continue home meds 3. Fatty liver disease- continue statin 4. History of discitis, osteomyelitis, chronic back pain 5. GERD- on PPI DVT prophy: Enoxaparin Plan to discharge in the next 24 hours if no acute changes and echocardiogram unremarkable. VS,Fishbone, I+O VS, Fishbone, I+O Laboratory Tests 08/20/16 04:39 Red Blood Count 4.21 L, Mean Corpuscular Volume 90.6, Mean Corpuscular Hemoglobin 31.0, Mean Corpuscular Hemoglobin Concent 34.3, Red Cell Distribution Width 13.4, Calcium Level 8.5 Vital Signs Date Time Temp Pulse Resp B/P (MAP) Pulse Ox O2 Delivery O2 Flow Rate FiO2 08/20/16 12:00 97.3 62 18 111/61 (78) 96 Room Air I&O- Last 24 Hours up to 6 AM 08/20/16 06:00 Intake Total 1000 ml Output Total 200 ml Balance 800 ml KIMI BOLAÑOS MD Aug 20, 2016 14:17
[2016-08-21 03:57] VITALS: BP 155/84
[2016-08-21 05:50] LABS: MEAN CORPUSCULAR HEMOGLOBIN 30.6 pg (27.0-33.0); RED CELL DISTRIBUTION WIDTH 13.6 % (11.5-14.5); WHITE BLOOD COUNT 5.3 K/mm3 (4.0-10.0)
[2016-08-21 07:10] LABS: ANION GAP 6 MEQ/L (8-16); BLOOD UREA NITROGEN 16 MG/DL (7-18); CALCIUM LEVEL 8.9 MG/DL (8.5-10.1); CARBON DIOXIDE LEVEL 28 MEQ/L (21-32); CHLORIDE LEVEL 107 MEQ/L (98-107); CREATININE FOR GFR 0.94 MG/DL (0.70-1.30); GLOMERULAR FILTRATION RATE > 60.0 (>56); GLUCOSE, FASTING 111 MG/DL (70-105); POTASSIUM SERUM 4.2 MEQ/L (3.5-5.1); SODIUM LEVEL 141 MEQ/L (136-145)
--- NOTE | 2016-08-21 07:15 | ECGEPIP ---
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
[2016-08-21 07:28] VITALS: BP_SYST 146; BP_SYST 160; BP_SYST 180; BP_DIAS 90; BP_DIAS 92
[2016-08-21] MEDS: ASPIRIN ENTERIC 325 MG TAB PO SCH (08:27)
[2016-08-21] MEDS: HumaLOG INSULIN (NovoLOG) PER UNIT SC SCH (08:27)
[2016-08-21] MEDS: ATORVASTATIN 20 MG TAB PO SCH (08:28)
[2016-08-21] MEDS: GABAPENTIN 300 MG CAP PO SCH (08:28)
[2016-08-21] MEDS: LISINOPRIL 10 MG TAB PO SCH (08:29)
[2016-08-21] MEDS: OMEPRAZOLE 20 MG CAP PO SCH (08:29)
[2016-08-21 08:30] VITALS: BP 146/90
[2016-08-21] MEDS: CitaloPRAM (CeleXA) 10 MG TABLET PO SCH (08:30)
[2016-08-21] MEDS: tiZANidine 4 MG TAB PO SCH (08:33)
[2016-08-21] MEDS: ENOXAPARIN 40 MG/0.4 ML SYRINGE (J1650) SC SCH (08:35)
[2016-08-21] MEDS ORDERED: ASPI325T24 PO (11:35)
--- NOTE | 2016-08-21 15:44 | DS.PDOC ---
Discharge Summary General Date of Admission Aug 19, 2016 at 17:35 Date of Discharge 08/21/16 Attending Physician: KIMI BOLAÑOS MD Specialist/Consultants Involve: MICHAEL OLGUIN MD Discharge Summary PROCEDURES PERFORMED DURING STAY: None. ADMITTING/DISCHARGE DIAGNOSES: 1. Transient ischemic attack 2. Hypertension 3. Fatty liver disease 4. History of discitis and osteomyelitis of the spine 5. GERD COMPLICATIONS/CHIEF COMPLAINT: TIA. HISTORY OF PRESENT ILLNESS/HOSPITAL COURSE: . This is a 60-year-old male past medical history hypertension, S2 medicine discitis of the spine who presents complaining of lightheadedness and dizziness will eating dinner. Patient states he had lower as well as upper extremity weakness as well. Patient was brought by neurology and determined to have a transient ischemic attack with possible posterior circulation involvement. Patient was started on high-dose of aspirin [address] Olguin recommends continuing this dose upon discharge and following up outpatient. MRI/MRA of the brain negative. The meeting patient has had an echocardiogram with for which a reading is pending. The patient says symptoms have completely resolved and patient has no neurologic deficits at this time. Patient denies any chest pain/shortness of breath/palpitations. Patient's hemodynamically stable and ready for discharged home. DISCHARGE MEDICATIONS: Please see below. ALLERGIES: Please see below. PHYSICAL EXAMINATION ON DISCHARGE: Vitals: (see below) General: No acute distress, laying comfortably in bed. HEENT: Moist mucous membranes. Neck: No JVD or lymphadenopathy Cardiac: RRR, No murmurs Pulm: Clear to auscultation b/l. No wheezing, rhonchi Abd: NT/ND + BS. Obese Ext: No edema or cyanosis Neuro: Strength 5/5 BUE and BLE. CN 2-12 intact. F to N intact LABORATORY DATA: Please see below. IMAGING: MRI brain 08/20/16 Impression: Mild small vessel microvascular changes and diffuse atrophy. Otherwise negative noncontrast brain MRI study. MRA Brain 08/20/16 Impression: Unremarkable MR angiography the brain. MRA Carotid 08/20/16 Impression: No significant plaquing or stenosis seen. Unremarkable carotid MR angiography. CXR 08/20/16 Impression: 1. No acute cardiopulmonary process. PROGNOSIS: Fair ACTIVITY: As tolerated. DIET: Low-sodium DISCHARGE PLAN/DISPOSITION: 01 Home, Self-Care. DISCHARGE INSTRUCTIONS: 1. Follow-up with PCP and Dr. Olguin in 1-2 weeks. DISCHARGE CONDITION: Stable. TIME SPENT ON DISCHARGE: Greater than 30 minutes. Vital Signs/I&Os Vital Signs Date Time Temp Pulse Resp B/P (MAP) Pulse Ox O2 Delivery O2 Flow Rate FiO2 08/21/16 08:30 80 146/90 08/21/16 08:15 Room Air 08/21/16 07:28 97.0 18 95 I&O- Last 24 Hours up to 6 AM 08/21/16 06:00 Intake Total 4620 ml Output Total 3525 ml Balance 1095 ml Laboratory Data Labs 24H Laboratory Tests 2 08/20/16 18:05: Bedside Glucose (Misc Panel) 157H 08/20/16 21:47: Bedside Glucose (Misc Panel) 148H 08/21/16 04:52: Anion Gap 6L, Glomerular Filtration Rate > 60.0, Blood Urea Nitrogen 16, Creatinine 0.94, Sodium Level 141, Potassium Level 4.2, Chloride Level 107, Carbon Dioxide Level 28, Calcium Level 8.9 CBC/BMP Laboratory Tests 08/21/16 04:52 Red Blood Count 4.12 L, Mean Corpuscular Volume 90.0, Mean Corpuscular Hemoglobin 30.6, Mean Corpuscular Hemoglobin Concent 34.0, Red Cell Distribution Width 13.6, Calcium Level 8.9 FSBS Laboratory Tests Test 08/20/16 18:05 08/20/16 21:47 Range/Units Bedside Glucose (Misc Panel) 157 148 70-105 MG/DL Discharge Medications Scheduled Amlodipine Besylate (Amlodipine Besylate) 2.5 Mg Tab, 2.5 MG PO DAILY, (Reported ) Aspirin (Aspirin EC) 325 Mg Tabec, 325 MG PO DAILY Atorvastatin Calcium (Atorvastatin Calcium) 20 Mg Tab, 20 MG PO DAILY, (Reported ) Citalopram Hydrobromide (Citalopram Hydrobromide) 10 Mg Tab, 10 MG PO DAILY, ( Reported) Gabapentin (Gabapentin) 300 Mg Cap, 300 MG PO TID, (Reported) Lisinopril (Lisinopril) 10 Mg Tab, 10 MG PO DAILY, (Reported) Metformin Hydrochloride (Metformin HCl ER) 1,000 Mg Tab, 1,000 MG PO QPM, ( Reported) Omeprazole (Omeprazole) 20 Mg Cap, 20 MG PO DAILY, (Reported) Tizanidine Hydrochloride (Tizanidine HCl) 4 Mg Cap, 4 MG PO TID, (Reported) Allergies Coded Allergies: No Known Allergies (Unverified , 04/01/16) KIMI BOLAÑOS MD Aug 21, 2016 15:44
--- NOTE | 2016-08-22 12:51 | ECHO ---
DATE OF STUDY: 08/21/2016 REFERRING PHYSICIAN: Dr. Raza Olguin INDICATION: Transient cerebral ischemia, unspecified. HEIGHT: 185 cm. WEIGHT: 105 kilograms. 2D MEASUREMENTS: Left atrium: 3.8 cm Aortic root: 3.3 cm Ventricular septum: 1.39 cm Posterior wall: 1.38 cm Left ventricle diastole: 4.1 cm LVOT: 2.0 cm Inferior vena cava: 1.1 cm DOPPLER MEASUREMENTS: Aortic valve velocity: 153 cm/s LVOT velocity: 122 cm/s LVOT VTI: 22.9 cm Very mitral regurgitation. Mitral E velocity: 67.1 cm/s Mitral A velocity: 81.4 cm/s Mitral deceleration time: 250 milliseconds. Very mild tricuspid regurgitation. Pulmonary artery systolic pressure: 34 mmHg by pulmonary acceleration time method. MITRAL ANNULAR TISSUE DOPPLER: E prime septal: 6.1 cm/s E prime lateral: 10.2 cm/s DESCRIPTION: Rhythm was sinus. Image quality was fair. This was a 2D, M-mode, color flow Doppler, and pulse wave Doppler examination and included mitral annular tissue Doppler. No pericardial effusion. CONCLUSIONS: 1. Normal left ventricle internal dimensions. Mild concentric left ventricle hypertrophy. No regional left ventricle (LV) wall motion abnormalities. Normal LV systolic functioning. Left ventricular ejection fraction (LVEF) 65% by visual estimate. Grade 1 LV diastolic dysfunction (impaired relaxation filling pattern). 2. Mild aortic valve sclerosis of a three-cusp aortic valve. No aortic regurgitation. 3. Mild mitral annular calcification. Very mild mitral regurgitation. 4. Suggestive of mild elevation of pulmonary artery systolic pressure. cc: MD Meera Jacques Obi, MD
[2016-08-29 00:08] LABS: APTT 24.1 sec (.); Anticardiolipin Ab, IgA <10 APL (.); DRVTT Screen Seconds 39.2 sec (.); SJOGREN'S ANTI SS-A <0.2 AI (0.0-0.9); SJOGREN'S ANTI SS-B <0.2 AI (0.0-0.9)
== END 2016-08-21 14:20 | disposition home or self-care (01) ==
LOC: M ED 10:43 → M ED INP 17:35 → INTOOBSV 17:35 → M PCU 20:29
PROVIDERS: ADMIT Hospitalist; ATTEND Hospitalist
DX: G45.9 Transient cerebral ischemic attack, unspecified (principal); I10 Essential (primary) hypertension; K76.0 Fatty (change of) liver, not elsewhere classified; M46.46 Discitis, unspecified, lumbar region; K21.9 Gastro-esophageal reflux disease without esophagitis; Z79.82 Long term (current) use of aspirin; Z79.899 Other long term (current) drug therapy; Z86.73 Personal history of transient ischemic attack (TIA), and cerebral infarction without residual deficits; E78.5 Hyperlipidemia, unspecified; Z87.891 Personal history of nicotine dependence
CPT/HCPCS: 36415; 70450; 70544; 70549; 70551; 71010; 80048; 80307; 81240; 81241; 82550; 82553; 83605; 83735; 84439; 84443; 85025; 85027; 85300; 85303; 85305; 85610; 85730; 86038; 86146; 86147; 86148; 86225; 86235; 86256; 86849; 93005; 93041; 94760; 96372; 97161; 99285; A9576; J1650

== ENCOUNTER 2016-09-17 13:00 | Outpatient (RCR) | payer BC ==
[~2016-09-17 13:00] MED LIST changes: +AMLO2.5T PO; +ASPI325T24 PO; +ASPI81TA24 PO; +CITA10TA5 PO; +CITA20TA4; +LISI10TA4 PO; +METF-415 PO; +METF10004 PO; +TIZA4CAP3 PO
== END 2016-09-21 | disposition home or self-care (01) ==
LOC: M PT 13:00
PROVIDERS: ATTEND Internal Medicine
DX: Z51.89 Encounter for other specified aftercare (principal); M46.46 Discitis, unspecified, lumbar region

== ENCOUNTER → 2016-10-22 | Outpatient (RCR) | payer BC | LOC: M PT 09-23 13:43 | PROVIDERS: ATTEND Internal Medicine | DX: Z51.89 Encounter for other specified aftercare (principal); M46.46 Discitis, unspecified, lumbar region ==

== ENCOUNTER → 2016-11-02 | Outpatient (REF) | payer BC ==
[2016-11-02 13:57] LABS: BASO % 0.6 % (0.0-1.0); EOS # 0.3 K/mm3 (0.0-0.50); EOS % 4.8 % (0.0-3.0); LARGE UNSTAINED CELL # 0.1 K/mm3 (0.0-0.4); LARGE UNSTAINED CELL % 1.9 % (0.0-4.0); LYMPH # 1.4 K/mm3 (1.5-4.5); LYMPH % 22.4 % (24.0-44.0); MEAN CORPUSCULAR HEMOGLOBIN 31.4 pg (27.0-33.0); MEAN CORPUSCULAR HGB CONC 34.1 g/dl (32.0-36.5); MEAN CORPUSCULAR VOLUME 92.2 fl (80.0-96.0); MONO # 0.4 K/mm3 (0.0-0.8); MONO % 5.7 % (0.0-5.0); NEUTROPHILS % 64.6 % (36.0-66.0); PLATELET COUNT, AUTOMATED 136 k/mm3 (150-450); RED CELL DISTRIBUTION WIDTH 13.3 % (11.5-14.5); WHITE BLOOD COUNT 6.1 K/mm3 (4.0-10.0)
[2016-11-02 14:52] LABS: ALT/SGPT 94 U/L (12-78); ANION GAP 10 MEQ/L (8-16); AST/SGOT 42 U/L (15-37); BLOOD UREA NITROGEN 15 MG/DL (7-18); CALCIUM LEVEL 9.3 MG/DL (8.8-10.2); CARBON DIOXIDE LEVEL 27 MEQ/L (21-32); CHLORIDE LEVEL 104 MEQ/L (98-107); CREATININE FOR GFR 0.91 MG/DL (0.70-1.30); GLOMERULAR FILTRATION RATE > 60.0 (>49); GLUCOSE, FASTING 142 MG/DL (80-110); POTASSIUM SERUM 4.1 MEQ/L (3.5-5.1); SODIUM LEVEL 141 MEQ/L (136-145)
[2016-11-02 14:53] LABS: ALBUMIN 4.1 GM/DL (3.2-5.2); ALBUMIN/GLOBULIN RATIO 1.32 (1.00-1.93); ALKALINE PHOSPHATASE 69 U/L (45-117); BILIRUBIN,TOTAL 0.4 MG/DL (0.2-1.0); TOTAL PROTEIN 7.2 GM/DL (6.4-8.2)
== END ==
LOC: M SFHCPLAZ 09:24
PROVIDERS: ATTEND Family Medicine
DX: R55 Syncope and collapse (principal); E11.9 Type 2 diabetes mellitus without complications

== ENCOUNTER 2016-11-18 13:57 | Outpatient (RCR) | payer BC | END 2016-11-21 | LOC: M PT 13:57 | PROVIDERS: ATTEND Internal Medicine | DX: Z51.89 Encounter for other specified aftercare (principal); M46.46 Discitis, unspecified, lumbar region ==

== ENCOUNTER → 2016-12-08 | Outpatient (REF) | payer BC ==
[2016-12-08 19:18] LABS: ALBUMIN 4.2 GM/DL (3.2-5.2); ALBUMIN/GLOBULIN RATIO 1.31 (1.00-1.93); ALKALINE PHOSPHATASE 87 U/L (45-117); ALT/SGPT 57 U/L (12-78); ANION GAP 7 MEQ/L (8-16); AST/SGOT 21 U/L (15-37); BILIRUBIN,TOTAL 0.4 MG/DL (0.2-1.0); BLOOD UREA NITROGEN 14 MG/DL (7-18); CARBON DIOXIDE LEVEL 30 MEQ/L (21-32); CHLORIDE LEVEL 104 MEQ/L (98-107); CREATININE FOR GFR 0.87 MG/DL (0.70-1.30); GLOMERULAR FILTRATION RATE > 60.0 (>49); GLUCOSE, FASTING 91 MG/DL (80-110); MAGNESIUM LEVEL 1.3 MG/DL (1.8-2.4); POTASSIUM SERUM 3.8 MEQ/L (3.5-5.1); SODIUM LEVEL 141 MEQ/L (136-145); TOTAL PROTEIN 7.4 GM/DL (6.4-8.2)
[2016-12-14 14:21] LABS: DOPAMINE PLASMA 44 pg/mL (0-48); EPINEPHRINE PLASMA 30 pg/mL (0-62); NOREPINEPHRINE PLASMA 374 pg/mL (0-874)
== END ==
LOC: M SFHCPLAZ 14:47
PROVIDERS: ATTEND Family Medicine
DX: I10 Essential (primary) hypertension (principal)

== ENCOUNTER → 2017-01-08 | Outpatient (CLI) | payer BC | LOC: M EKG 09:13 | DX: I10 Essential (primary) hypertension (principal) ==

== ENCOUNTER → 2017-02-08 | Outpatient (REF) | payer BC | LOC: M SFHCPLAZ 15:37 | PROVIDERS: ATTEND Family Medicine | DX: E11.9 Type 2 diabetes mellitus without complications (principal) ==

== ENCOUNTER → 2017-03-18 | Outpatient (CLI) | payer OTHER | LOC: M RAD 09:55 | DX: I10 Essential (primary) hypertension (principal) | CPT/HCPCS: 76775 ==

== ENCOUNTER → 2017-04-07 | Outpatient (CLI) | payer OTHER ==
[2017-04-07 09:35] LABS: ESTIMATED AVERAGE GLUCOSE 154 MG/DL (60-110)
== END ==
LOC: M LAB 08:38
DX: E11.9 Type 2 diabetes mellitus without complications (principal)
CPT/HCPCS: 83036

== ENCOUNTER → 2017-05-12 | Outpatient (CLI) | payer OTHER | LOC: M SLEEP 19:37 | DX: G47.33 Obstructive sleep apnea (adult) (pediatric) (principal) ==

== ENCOUNTER → 2017-06-11 | Outpatient (CLI) | payer OTHER ==
[2017-06-11 14:57] LABS: MALB URINE SIEMENS 16.3 MG/L; MAU/CREAT RATIO 11.7 MCG/MG (0.0-30.0)
== END ==
LOC: M LAB 12:54
DX: E11.9 Type 2 diabetes mellitus without complications (principal)

== ENCOUNTER 2017-08-11 22:21 | Emergency (ER) | payer OTHER | END 2017-08-12 00:57 | disposition home or self-care (01) | LOC: M ED 22:21 | DX: T46.1X1A Poisoning by calcium-channel blockers, accidental (unintentional), initial encounter (principal); T46.6X1A Poisoning by antihyperlipidemic and antiarteriosclerotic drugs, accidental (unintentional), initial encounter; T48.1X1A Poisoning by skeletal muscle relaxants [neuromuscular blocking agents], accidental (unintentional), initial encounter; X58.XXXA Exposure to other specified factors, initial encounter; Y92.89 Other specified places as the place of occurrence of the external cause; E11.9 Type 2 diabetes mellitus without complications; I10 Essential (primary) hypertension; E78.5 Hyperlipidemia, unspecified; K21.9 Gastro-esophageal reflux disease without esophagitis; M54.9 Dorsalgia, unspecified; Z87.891 Personal history of nicotine dependence; Z79.899 Other long term (current) drug therapy; Z79.82 Long term (current) use of aspirin; Z79.84 Long term (current) use of oral hypoglycemic drugs | CPT/HCPCS: 99284 ==

== ENCOUNTER → 2018-10-28 | Outpatient (REF) | payer MEDICARE ==
[~2018-10-28] MED LIST changes: -AMLO2.5T PO; +AMLO2.5T3 PO; -AMLO5TAB2 PO; +AMLO5TAB6 PO; +ASPI-255 PO; -ASPI325T24 PO; -CITA20TA4; +CITA20TA6; -GABA-282 PO; +GABA-843 PO; -OMEP20CA3 PO; +OMEP20CA4 PO; +TIZA4CAP PO; -TIZA4CAP3 PO
[2018-10-28 12:37] LABS: HEMATOCRIT 42.2 % (42.0-52.0); HEMOGLOBIN 14.4 g/dl (13.5-17.5)
[2018-10-28 12:43] LABS: BLOOD UREA NITROGEN 16 MG/DL (7-18); CALCIUM LEVEL 9.4 MG/DL (8.8-10.2); CARBON DIOXIDE LEVEL 31 MEQ/L (21-32); CHLORIDE LEVEL 101 MEQ/L (98-107); CREATININE FOR GFR 0.94 MG/DL (0.70-1.30); GLOMERULAR FILTRATION RATE > 60.0 (>49); GLUCOSE, FASTING 296 MG/DL (70-100); MAGNESIUM LEVEL 1.6 MG/DL (1.8-2.4); POTASSIUM SERUM 4.2 MEQ/L (3.5-5.1); SODIUM LEVEL 137 MEQ/L (136-145)
[2018-10-28 16:54] LABS: MALB URINE SIEMENS 27.5 MG/L; MAU/CREAT RATIO 10.1 MCG/MG (0.0-30.0)
== END ==
LOC: M SFHCPLAZ 08:36
PROVIDERS: ATTEND Family Medicine
DX: E11.9 Type 2 diabetes mellitus without complications (principal); E83.42 Hypomagnesemia

== ENCOUNTER → 2019-05-29 | Outpatient (REF) | payer MEDICARE ==
[~2019-05-29] MED LIST changes: +OMEP1CAP73 PO; -OMEP20CA4 PO
[2019-05-29 14:32] LABS: HEMOGLOBIN A1c 8.3 %
[2019-05-29 14:39] LABS: BLOOD UREA NITROGEN 16 MG/DL (7-18); CALCIUM LEVEL 8.9 MG/DL (8.8-10.2); CARBON DIOXIDE LEVEL 28 MEQ/L (21-32); CHLORIDE LEVEL 101 MEQ/L (98-107); CHOLESTEROL LEVEL 200 MG/DL (<200); CHOLESTEROL RISK RATIO 6.666 (<5); CREATININE FOR GFR 0.86 MG/DL (0.70-1.30); GLOMERULAR FILTRATION RATE > 60.0 (>49); GLUCOSE, FASTING 134 MG/DL (70-100); HDL CHOLESTEROL 30 MG/DL (>40); LDL CHOLESTEROL 146 MG/DL (<100); NON-HDL-C 170 MG/DL; POTASSIUM SERUM 3.9 MEQ/L (3.5-5.1); SODIUM LEVEL 135 MEQ/L (136-145); TRIGLYCERIDES LEVEL 119 MG/DL (<150)
== END ==
LOC: M SFHCPLAZ 11:27
DX: E11.9 Type 2 diabetes mellitus without complications (principal); E78.5 Hyperlipidemia, unspecified; I10 Essential (primary) hypertension

== ENCOUNTER → 2019-11-13 | Outpatient (CLI) | payer MEDICARE ==
[~2019-11-13] MED LIST changes: +AMLO1TAB24 PO; -AMLO5TAB6 PO; -ASPI81TA85 PO; +ASPI81TA86 PO
[2019-11-13 14:21] LABS: HEMATOCRIT 45.1 % (42.0-52.0); HEMOGLOBIN 15.1 g/dl (13.5-17.5); MEAN CORPUSCULAR HEMOGLOBIN 31.7 pg (27.0-33.0); MEAN CORPUSCULAR HGB CONC 33.5 g/dl (32.0-36.5); MEAN CORPUSCULAR VOLUME 94.5 fl (80.0-96.0); PLATELET COUNT, AUTOMATED 119 10^3/uL (150-450); RED BLOOD COUNT 4.77 10^6/uL (4.30-6.10); WHITE BLOOD COUNT 5.6 10^3/uL (4.0-10.0)
[2019-11-13 15:05] LABS: HEMOGLOBIN A1c 6.6 %
== END ==
LOC: M PLALAB 10:12
PROVIDERS: ATTEND Family Medicine
DX: E11.9 Type 2 diabetes mellitus without complications (principal)
CPT/HCPCS: 36415; 83036; 85027; G0463

== ENCOUNTER → 2020-02-19 | Outpatient (REF) | payer MEDICARE ==
[2020-02-19 13:26] LABS: HEMOGLOBIN 15.1 g/dl (13.5-17.5); MEAN CORPUSCULAR HEMOGLOBIN 29.3 pg (27.0-33.0); MEAN CORPUSCULAR HGB CONC 32.1 g/dl (32.0-36.5); MEAN CORPUSCULAR VOLUME 91.3 fl (80.0-96.0); PLATELET COUNT, AUTOMATED 141 10^3/uL (150-450); RED BLOOD COUNT 5.15 10^6/uL (4.30-6.10); WHITE BLOOD COUNT 8.3 10^3/uL (4.0-10.0)
[2020-02-19 13:46] LABS: BLOOD UREA NITROGEN 19 MG/DL (7-18); CARBON DIOXIDE LEVEL 30 MEQ/L (21-32); CHLORIDE LEVEL 104 MEQ/L (98-107); CREATININE FOR GFR 1.03 MG/DL (0.70-1.30); GLOMERULAR FILTRATION RATE > 60.0 (>49); GLUCOSE, FASTING 107 MG/DL (70-100); POTASSIUM SERUM 4.2 MEQ/L (3.5-5.1); SODIUM LEVEL 141 MEQ/L (136-145)
[2020-02-19 13:48] LABS: HEMOGLOBIN A1c 8.2 %
== END ==
LOC: M SFHCPLAZ 10:35
PROVIDERS: ATTEND Family Medicine
DX: E11.9 Type 2 diabetes mellitus without complications (principal); I10 Essential (primary) hypertension
CPT/HCPCS: 36415; 80048; 83036; 85027; G0463

== ENCOUNTER → 2020-05-21 | Outpatient (REF) | payer MEDICARE ==
[~2020-05-21] MED LIST changes: +GABA-282 PO; -GABA-843 PO; +LISI10TA22 PO; -LISI10TA4 PO; -PEG1POW PO; +POLY17PO18 PO
== END ==
LOC: M SFHCPLAZ 11:43
PROVIDERS: ATTEND Family Medicine
DX: E78.00 Pure hypercholesterolemia, unspecified (principal); E11.9 Type 2 diabetes mellitus without complications; I10 Essential (primary) hypertension

== ENCOUNTER → 2020-05-22 | Outpatient (CLI) | payer MEDICARE ==
[2020-05-22 11:21] LABS: HEMATOCRIT 42.7 % (42.0-52.0); HEMOGLOBIN 14.7 g/dl (13.5-17.5); MEAN CORPUSCULAR HEMOGLOBIN 30.7 pg (27.0-33.0); MEAN CORPUSCULAR HGB CONC 34.4 g/dl (32.0-36.5); MEAN CORPUSCULAR VOLUME 89.1 fl (80.0-96.0); PLATELET COUNT, AUTOMATED 151 10^3/uL (150-450); RED BLOOD COUNT 4.79 10^6/uL (4.30-6.10); WHITE BLOOD COUNT 7.8 10^3/uL (4.0-10.0)
[2020-05-22 11:47] LABS: BLOOD UREA NITROGEN 13 MG/DL (7-18); CALCIUM LEVEL 8.7 MG/DL (8.8-10.2); CARBON DIOXIDE LEVEL 29 MEQ/L (21-32); CHLORIDE LEVEL 104 MEQ/L (98-107); CHOLESTEROL LEVEL 131 MG/DL (<200); CHOLESTEROL RISK RATIO 3.638 (<5); CREATININE FOR GFR 0.87 MG/DL (0.70-1.30); GLOMERULAR FILTRATION RATE > 60.0 (>49); GLUCOSE, FASTING 107 MG/DL (70-100); HDL CHOLESTEROL 36 MG/DL (>40); LDL CHOLESTEROL 68 MG/DL (<100); NON-HDL-C 95 MG/DL; POTASSIUM SERUM 3.6 MEQ/L (3.5-5.1); SODIUM LEVEL 139 MEQ/L (136-145); TRIGLYCERIDES LEVEL 135 MG/DL (<150)
[2020-05-22 12:05] LABS: HEMOGLOBIN A1c 6.4 %
== END ==
LOC: M LAB 10:36
PROVIDERS: ATTEND Family Medicine
DX: E78.00 Pure hypercholesterolemia, unspecified (principal); E11.9 Type 2 diabetes mellitus without complications; I10 Essential (primary) hypertension

== ENCOUNTER → 2020-05-23 | Outpatient (REF) | payer MEDICARE ==
[2020-05-23 14:48] LABS: MALB URINE SIEMENS 17.1 MG/L; MAU/CREAT RATIO 10.6 MCG/MG (0.0-30.0)
== END ==
LOC: M LAB REF 12:03
PROVIDERS: ATTEND Family Medicine
DX: E11.9 Type 2 diabetes mellitus without complications (principal); I10 Essential (primary) hypertension

== ENCOUNTER 2020-06-12 13:43 | Outpatient (RCR) | payer MEDICARE | END 2020-06-21 | LOC: M PT 13:43 | PROVIDERS: ATTEND Orthopaedic Surgery | DX: M76.72 Peroneal tendinitis, left leg (principal) ==

== ENCOUNTER 2020-07-10 13:42 | Outpatient (RCR) | payer MEDICARE | END 2020-07-22 | LOC: M PT 13:42 | PROVIDERS: ATTEND Orthopaedic Surgery | DX: M76.72 Peroneal tendinitis, left leg (principal) ==

== ENCOUNTER 2020-12-12 09:54 | Emergency (ER) | payer MEDICARE ==
[~2020-12-12] VITALS: Ht 180.3 cm; Wt 112.3 kg
[2020-12-12 09:55] VITALS: BP 140/79
--- OUTSIDE RECORDS SUMMARY | 2020-12-12 10:02 | CCD ---
Author Author [facility] Organization [facility] Address Unknown Phone Unavailable Care Team Providers Care Leather Craftsman Name Role Phone Rafael Taylor Unavailable PROBLEMS Type Condition ICD9-CM Code [id number] Code Onset Dates Condition S tatus W/U Status Risk SNOMED Code Notes Problem Chronic GERD K21.9 Active confirmed 2581517 09 Problem Essential hypertension I10 Active confirmed 74082702 Problem Obstructive sleep apnea syndrome G47.33 Active conf irmed 80578245 Problem BMI 37.0-37.9, adult Z68.37 Active confirmed 144718717 Problem Low back pain M54.5 Active confirmed 117116 009 Problem Fatty liver K76.0 Active confirmed 87216857 7 Problem Lumbar discitis M46.46 Active confirmed 202 03282 Problem Moderate single current episode of major depressive disord er F32.1 Active confirmed 78643255 Problem Pure hypercholesterolemia E78.00 Active confirmed 609633782 Problem Cigarette nicotine dependence without complication F17.210 Active confirmed 53522362 Problem Type 2 diabetes mellitus without complications E11 .9 Active confirmed 251719289 Problem Alcohol abuse counseling and surveillance Z71.41 Active confirmed 252026075 Problem Other chronic pain G89.29 Active confirmed 8 1291597 Problem Discitis of lumbar region M46.46 Active confirmed 050422592 Problem Type 2 diabetes mellitus wit hout complication, without long-term current use of insulin E11.9 Active confirmed 995111915 Problem 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 Z79.4 Activ e confirmed [id number] ALLERGIES Allergen (clinical drug ingredient) Drug/Non Drug Allergy do cumented on EMR Reaction Allergy Type Onset Date Status Metformin metformin diarrhea Non Drug Allergy Active ENCOUNTERS from 1955 to 2020-11-25 Encounter Location Date Provider Diagnosis [facility] Resident [address] [facility] [address] [phone] [place] [address] Nov, Rafael Taylor IMMUNIZATIONS Vaccine Route Administration Date Status Influenza 18 yrs & older Flublok IM Intramuscular Dec 30, 2018 Administered Influenza 18 yrs & older Flublok IM Intramuscular Dec 17, 2017 Administered Toradol 60mg/2mL Ketorolac IM Intramuscular Mar 03, 2016 Admi nistered Pneumococcal Adult 0.5mL Pneumovax 23 IM Intramuscular Dec 30 019 Administered TDAP 0.5mL (Boostrix) IM Intramuscular August 03, 2019 Administe red Influenza 6mo & up Fluzone IM Intramuscular Jan 06, 2017 Admi nistered Influenza 6mo & up Fluzone Unknown Dec 08, 2016 Refus ed Influenza 6mo & up Fluzone Unknown Apr 08, 2016 Other s SOCIAL HISTORY Tobacco Use: Social History Observation Description Date Details (start date - stop date) Former Smoker Sex Assigned At : Social History Observation Description Sex Assigned At Unknown Education: Question Answer Notes Level of Education: High School Audit Question Answer Notes Total Score: 1 Interpretation: Alcohol Education Sexual Hx: Question Answer Notes Had sex in the last 12 months (vaginal, oral, or anal)? No Drug and Alcohol Question Answer Notes Total Score: 0 Interpretation: No problems reported Alcohol Screening: Question Answer Notes Did you have a drink containing alcohol in the past year? Ye s Points 4 Interpretation Positive How many drinks did you have on a typica l day when you were drinking in the past year? 3 or 4 (1 point) How often did you have a drink containing alcohol in t he past year? Two to three times per week (3 points) BMI Care Goal Follow-Up Question Answer Notes Above Normal BMI Follow-Up Dietary needs education Tobacco Use: Question Answer Notes Are you a: former smoker Quit September 2014, 1 pack per day since 17 years old Additional Findings: Tobacco User Moderate cigarette smoker (10-19 cigs/day) How long has it been since you last smoked? 1-5 years REASON FOR REFERRAL No Information VITAL SIGNS No information MEDICATIONS Medication SIG (Take, Route, Frequency, Duration) Notes Start Da te End Date Status CeleXA 20 MG 0.5 tablet Orally Once a day for 30 Active Aspirin 325 MG 1 tablet Orally Once a day for 30 Active Easy Comfort Pen [place] 31G X 6 MM as directed intradermally Daily for 30 Active Trulicity 0.75 MG/0.5ML as directed Subcutaneous Once a week for 30 days Apr, Active Lancets - as directed intradermally BID for 30 days Dx: E11.9 and Z7 9.4 Active amLODIPine Besylate 5 MG 1 tablet Orally twice a day for 30 days Active Omeprazole 20 MG 1 capsules Orally Once a day for 90 days Active Tresiba FlexTouch 100 UNIT/ML as directed Subcutaneous 44 units daily for 30 days Active metFORMIN HCl ER 500 MG 4 tablet with evening meal Orally Once a da y for 30 Not-Taking Nystatin 252375 UNIT/GM 1 application to affected ar ea Externally Twice a day for 10 days Sep, Not-Taking Lactase 3000 UNIT 1 tablet with first bite of dairy - containing food Orally Once a day for 30 day(s) Oct, Active Atorvastatin Calcium 40 MG 1 tablet Orally Once a day for 90 days Active Gabapentin 600 MG 1 tab orally twice a day for 90 days Active hydroCHLOROthiazide 12.5 MG 1 tablet in the morning Or ally Once a day for 30 day(s) Oct, Active Carvedilol 6.25 MG 1 tab Orally twice daily as needed, check BP prior, if systolic BP 140, skip dose for 90 days Active OneTouch Ultra II Test Strips as directed BID and as needed for 30 da ys Active Lisinopril 20 MG 2 tablet Orally Once a day for 90 days Active tiZANidine HCl 2 mg TAKE ONE TABLET BY MOUTH THR EE TIMES A DAY NEEDED orally once daily for 30 days Active cloNIDine HCl 0.1 MG 1 tablet Orally qhs for 30 day(s) Oct, Active PROCEDURES No Information RESULTS No Results REASON FOR VISIT New Refill Request MEDICAL (GENERAL) HISTORY Type Description Date Medical History Type 2 DM, A1C goal 7% Medical History Discitis of the lumbar spine February 10 Medical History GERD Medical History Fatty liver found on CT Medical History 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 Anemia Medical History former smoker Medical History Subacute osteomyelitis, other site Surgical History lumbar puncture 03/2016 Surgical History upper teeth extraction 01/2020 Hospitalization History discitis January 2016 Hospitalization History discitis February 2016 Goals Section No Information Health Concerns No Information MEDICAL EQUIPMENT No Information MENTAL STATUS No Information FUNCTIONAL STATUS No Information ASSESSMENTS No Information PLAN OF TREATMENT Medication Medication Name Sig Start Date Stop Date Lactase 3000 UNIT 1 tablet with first bite of dairy - containing food Orally Once a day for 30 day(s) Oct, Gabapentin 600 MG 1 tab orally twice a day for 90 days Next Appt Details Provider Name:Rafael Taylor, 2020-12-31 11: 00:00 AM, [address] [facility], , [place], [address], Insurance Providers Payer Name Payer Address Payer Phone Insured Name Patient Relati onship to Insured Coverage Start Date Coverage End Date [facility] [address] [address] [facility] [id number] FRIDA DAN self
--- OUTSIDE RECORDS SUMMARY | 2020-12-12 10:02 | CCD ---
Author Author [facility] Organization [facility] Address Unknown Phone Unavailable Care Team Providers Care It Systems Analyst Consultant Name Role Phone Rafael Taylor Unavailable PROBLEMS Type Condition ICD9-CM Code [id number] Code Onset Dates Condition S tatus W/U Status Risk SNOMED Code Notes Problem Chronic GERD K21.9 Active confirmed 8938700 09 Problem Essential hypertension I10 Active confirmed 28808559 Problem Obstructive sleep apnea syndrome G47.33 Active conf irmed 01718945 Problem BMI 37.0-37.9, adult Z68.37 Active confirmed 882113712 Problem Low back pain M54.5 Active confirmed 505949 009 Problem Fatty liver K76.0 Active confirmed 91616693 7 Problem Lumbar discitis M46.46 Active confirmed 202 81050 Problem Moderate single current episode of major depressive disord er F32.1 Active confirmed 45403678 Problem Pure hypercholesterolemia E78.00 Active confirmed 258484996 Problem Cigarette nicotine dependence without complication F17.210 Active confirmed 68868230 Problem Type 2 diabetes mellitus without complications E11 .9 Active confirmed 128140406 Problem Alcohol abuse counseling and surveillance Z71.41 Active confirmed 366402766 Problem Other chronic pain G89.29 Active confirmed 8 0648276 Problem Discitis of lumbar region M46.46 Active confirmed 776960024 Problem Type 2 diabetes mellitus wit hout complication, without long-term current use of insulin E11.9 Active confirmed 021584189 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 Activ e confirmed 121302666 ALLERGIES Allergen (clinical drug ingredient) Drug/Non Drug Allergy do cumented on EMR Reaction Allergy Type Onset Date Status Metformin metformin diarrhea Non Drug Allergy Active ENCOUNTERS from 1955 to 2020-10-18 Encounter Location Date Provider Diagnosis [facility] [place] [address] [facility] [address] [phone] [place] [address] 27 Sep, 2020 Rafael Blankenshipi Essential hypertensi on I10 IMMUNIZATIONS Vaccine Route Administration Date Status Influenza [...] Notes Start Da te End Date Status Atorvastatin Calcium 40 MG 1 tablet Orally Once a day for 90 days Active Trulicity 0.75 MG/0.5ML as directed Subcutaneous Once a week for 30 days Apr, Active Nystatin 251435 UNIT/GM 1 application to affected ar ea Externally Twice a day for 10 days Sep, Active Gabapentin 600 MG 1 tab orally three times daily as needed for 90 day s Active Lisinopril 20 MG 2 tablet Orally Once a day for 90 days Active Omeprazole 20 MG 1 capsules Orally Once a day for 90 days Active Aspirin 325 MG 1 tablet Orally Once a day for 30 Active Easy Comfort Pen [place] 31G X 6 MM as directed intradermally Daily for 30 Active Tresiba FlexTouch 100 UNIT/ML as directed Subcutaneous 44 units daily for 30 days Active OneTouch Ultra II Test Strips as directed BID and as needed for 30 da ys Active CeleXA 20 MG 0.5 tablet Orally Once a day for 30 Active Lancets - as directed intradermally BID for 30 days Dx: E11.9 and Z7 9.4 Active amLODIPine Besylate 5 MG 1 tablet Orally Once a day for 30 Active tiZANidine HCl 2 mg TAKE ONE TABLET BY MOUTH THR EE TIMES A DAY NEEDED orally once daily for 30 days Active metFORMIN HCl ER 500 MG 4 tablet with evening meal Orally Once a da y for 30 Not-Taking Carvedilol 6.25 MG 1 tab Orally twice daily as needed, check BP prior, if systolic BP 140, skip dose for 90 days Active PROCEDURES No Information RESULTS No Results [...] No Information FUNCTIONAL STATUS No Information ASSESSMENTS Encounter Date Diagnosis Assessment Notes Treatment Notes Treatm ent Clinical Notes Sep, Essential hypertension (ICD-10 - I10) PLAN OF TREATMENT Medication Medication Name Sig Start Date Stop Date CeleXA 20 MG 0.5 tablet Orally Once a day for 30 tiZANidine HCl 2 mg TAKE ONE TABLET BY MOUTH THR EE TIMES A DAY NEEDED orally once daily for 30 days Trulicity 0.75 MG/0.5ML as directed Subcutaneous Once a week for 30 days Apr, Carvedilol 6.25 MG 1 tab Orally twice daily as needed, check BP prior, if systolic BP 140, skip dose for 90 days Atorvastatin Calcium 40 MG 1 tablet Orally Once a day for 90 day s Insurance Providers Payer Name Payer Address Payer Phone Insured Name Patient Relati onship to Insured Coverage Start Date Coverage End Date [facility] [employer] [facility] [address] [address] [facility] [phone] FRIDA DAN self
--- OUTSIDE RECORDS SUMMARY | 2020-12-12 10:02 | CCD ---
Author Author [facility] Organization [facility] Address Unknown Phone Unavailable Care Team Providers Care Director [facility] Name Role Phone Rafael Taylor Unavailable PROBLEMS Type Condition ICD9-CM Code JMV68-UT Code Onset Dates Condition S tatus W/U Status Risk SNOMED Code Notes Problem Chronic GERD K21.9 Active confirmed 6241900 09 Problem Essential hypertension I10 Active confirmed 69800079 Problem Obstructive sleep apnea syndrome G47.33 Active conf irmed 79628731 Problem BMI 37.0-37.9, adult Z68.37 Active confirmed 494624435 Problem Low back pain M54.5 Active confirmed 807521 009 Problem Fatty liver K76.0 Active confirmed 39025263 7 Problem Lumbar discitis M46.46 Active confirmed 202 60933 Problem Moderate single current episode of major depressive disord er F32.1 Active confirmed 24887646 Problem Pure hypercholesterolemia E78.00 Active confirmed 308199510 Problem Cigarette nicotine dependence without complication F17.210 Active confirmed 85063752 Problem Type 2 diabetes mellitus without complications E11 .9 Active confirmed 583456153 Problem Alcohol abuse counseling and surveillance Z71.41 Active confirmed 570138806 Problem Other chronic pain G89.29 Active confirmed 8 0027119 Problem Discitis of lumbar region M46.46 Active confirmed 638353996 Problem Type 2 diabetes mellitus wit hout complication, without long-term current use of insulin E11.9 Active confirmed 134067105 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 Activ e confirmed 046601921 ALLERGIES Allergen (clinical drug ingredient) Drug/Non Drug Allergy do cumented on EMR Reaction Allergy Type Onset Date Status Metformin metformin diarrhea Non Drug Allergy Active ENCOUNTERS from 1955 to 2020-10-11 Encounter Location Date Provider Diagnosis [facility] Tommy [address] [facility] [phone] [place] [address] 18 Sep, 2020 Rafael Taylor IMMUNIZATIONS Vaccine Route Administration Date [...] a week for 30 days Apr, Active Carvedilol 6.25 MG 1 tab Orally twice daily as needed, check BP prior, if systolic BP <140, skip dose for 30 Active Gabapentin 600 MG 1 tab orally three times daily as needed for 90 day s Active Lisinopril 20 MG 2 tablet Orally Once a day for 90 days Active Omeprazole 20 MG 1 capsules Orally Once a day for 90 days Active tiZANidine HCl 2 mg TAKE ONE TABLET BY MOUTH THR EE TIMES A DAY NEEDED orally once daily for 30 Active Tresiba FlexTouch 100 UNIT/ML as directed Subcutaneous 44 units daily for 30 days Active Nystatin 745913 UNIT/GM 1 application to affected ar ea Externally Twice a day for 10 days Sep, Active OneTouch Ultra II Test Strips as directed BID and as needed for 30 da ys Active CeleXA 20 MG 0.5 tablet Orally Once a day for 30 Active Lancets - as directed intradermally BID for 30 days Dx: E11.9 and Z7 9.4 Active Easy Comfort Pen [place] 31G X 6 MM as directed intradermally Daily for 30 Active Aspirin 325 MG 1 tablet Orally Once a day for 30 Active metFORMIN HCl ER 500 MG 4 tablet with evening meal Orally Once a da y for 30 Not-Taking amLODIPine Besylate 5 MG 1 tablet Orally Once a day for 30 Active PROCEDURES No Information RESULTS No Results REASON FOR VISIT refill MEDICAL (GENERAL) HISTORY Type Description Date Medical [...] Medication Name Sig Start Date Stop Date Atorvastatin Calcium 40 MG 1 tablet Orally Once a day for 90 day s Trulicity 0.75 MG/0.5ML as directed Subcutaneous Once a week for 30 days Apr, Insurance Providers Payer Name Payer Address Payer Phone Insured Name Patient Relati onship to Insured Coverage Start Date Coverage End Date [facility] [address] [facility] [phone] FRIDA DAN self
--- OUTSIDE RECORDS SUMMARY | 2020-12-12 10:02 | CCD ---
Author Author [facility] Organization [facility] Address Unknown Phone Unavailable Care Team Providers Care Manufacturer'S Representative Name Role Phone Rafael Taylor Unavailable PROBLEMS Type Condition ICD9-CM Code CNR90-RI Code Onset Dates Condition S tatus W/U Status Risk SNOMED Code Notes Problem Chronic GERD K21.9 Active confirmed 9175664 09 Problem Essential hypertension I10 Active confirmed 96402851 Problem Obstructive sleep apnea syndrome G47.33 Active conf irmed 25222384 Problem BMI 37.0-37.9, adult Z68.37 Active confirmed 399509156 Problem Low back pain M54.5 Active confirmed 513982 009 Problem Fatty liver K76.0 Active confirmed 50601861 7 Problem Lumbar discitis M46.46 Active confirmed 202 84155 Problem Moderate single current episode of major depressive disord er F32.1 Active confirmed 42820596 Problem Pure hypercholesterolemia E78.00 Active confirmed 063165779 Problem Cigarette nicotine dependence without complication F17.210 Active confirmed 62617928 Problem Type 2 diabetes mellitus without complications E11 .9 Active confirmed 177662574 Problem Alcohol abuse counseling and surveillance Z71.41 Active confirmed 475428814 Problem Other chronic pain G89.29 Active confirmed 8 6771644 Problem Discitis of lumbar region M46.46 Active confirmed 912210698 Problem Type 2 diabetes mellitus wit hout complication, without long-term current use of insulin E11.9 Active confirmed 872723706 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 Activ e confirmed 387933707 ALLERGIES Allergen (clinical drug ingredient) Drug/Non Drug Allergy do cumented on EMR Reaction Allergy Type Onset Date Status Metformin metformin diarrhea Non Drug Allergy Active ENCOUNTERS from 1955 to 2020-11-20 Encounter Location Date Provider Diagnosis [facility] [place] [address] [facility] [address] [phone] [place] [address] 25 Oct, 2020 Rafael Taylor Type 2 diabetes bang itus without complication, without long-term current use of insulin E11.9 IMMUNIZATIONS Vaccine Route Administration Date Status Influenza [...] Notes Start Da te End Date Status Lancets - as directed intradermally BID for 30 days Dx: E11.9 and Z7 9.4 Active CeleXA 20 MG 0.5 tablet Orally Once a day for 30 Active Omeprazole 20 MG 1 capsules Orally Once a day for 90 days Active Atorvastatin Calcium 40 MG 1 tablet Orally Once a day for 90 days Active Easy Comfort Pen [place] 31G X 6 MM as directed intradermally Daily for 30 Active amLODIPine Besylate 5 MG 1 tablet Orally twice a day for 30 days Active Tresiba FlexTouch 100 UNIT/ML as directed Subcutaneous 44 units daily for 30 days Active metFORMIN HCl ER 500 MG 4 tablet with evening meal Orally Once a da y for 30 Not-Taking Nystatin 203677 UNIT/GM 1 application to affected ar ea Externally Twice a day for 10 days Sep, Not-Taking hydroCHLOROthiazide 12.5 MG 1 tablet in the morning Or ally Once a day for 30 day(s) Oct, Active OneTouch Ultra II Test Strips as directed BID and as needed for 30 da ys Active tiZANidine HCl 2 mg TAKE ONE TABLET BY MOUTH THR EE TIMES A DAY NEEDED orally once daily for 30 days Active cloNIDine HCl 0.1 MG 1 tablet Orally qhs for 30 day(s) Oct, Active Trulicity 0.75 MG/0.5ML as directed Subcutaneous Once a week for 30 days Apr, Active Gabapentin 600 MG 1 tab orally twice a day Active Lisinopril 20 MG 2 tablet Orally Once a day for 90 days Active Carvedilol 6.25 MG 1 tab Orally twice daily as needed, check BP prior, if systolic BP 140, skip dose for 90 days Active Aspirin 325 MG [...] Notes Treatment Notes Treatm ent Clinical Notes Oct, Type 2 diabetes mellitus wit hout complication, without long-term current use of insulin (ICD-10 - E11.9) PLAN OF TREATMENT Next Appt Details Provider Name:Rafael Taylor, 2020-12-31 11: 00:00 AM, [address] [facility], , [place], [address], Insurance Providers Payer Name Payer Address Payer Phone Insured Name Patient Relati onship to Insured Coverage Start Date Coverage End Date [employer] PLANS [address] [facility] [phone] FRIDA DAN self
--- OUTSIDE RECORDS SUMMARY | 2020-12-12 10:02 | CCD ---
Author Author [facility] Organization [facility] Address Unknown Phone Unavailable Care Team Providers Care Executive Secretary Social Welfare Name Role Phone Rafael Taylor Unavailable PROBLEMS Type Condition ICD9-CM Code ZZX85-TX Code Onset Dates Condition S tatus W/U Status Risk SNOMED Code Notes Problem Chronic GERD K21.9 Active confirmed 7334979 09 Problem Essential hypertension I10 Active confirmed 02141163 Problem Obstructive sleep apnea syndrome G47.33 Active conf irmed 86809307 Problem BMI 37.0-37.9, adult Z68.37 Active confirmed 643979165 Problem Low back pain M54.5 Active confirmed 951460 009 Problem Fatty liver K76.0 Active confirmed 29441227 7 Problem Lumbar discitis M46.46 Active confirmed 202 40855 Problem Moderate single current episode of major depressive disord er F32.1 Active confirmed 97354236 Problem Pure hypercholesterolemia E78.00 Active confirmed 356766416 Problem Cigarette nicotine dependence without complication F17.210 Active confirmed 39265132 Problem Type 2 diabetes mellitus without complications E11 .9 Active confirmed 228016037 Problem Alcohol abuse counseling and surveillance Z71.41 Active confirmed 076647193 Problem Other chronic pain G89.29 Active confirmed 8 6376490 Problem Discitis of lumbar region M46.46 Active confirmed 445834801 Problem Type 2 diabetes mellitus wit hout complication, without long-term current use of insulin E11.9 Active confirmed 342796568 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 Activ e confirmed 192361602 ALLERGIES Allergen (clinical drug ingredient) Drug/Non Drug Allergy do cumented on EMR Reaction Allergy Type Onset Date Status Metformin metformin diarrhea Non Drug Allergy Active ENCOUNTERS from 1955 to 2020-10-31 Encounter Location Date Provider Diagnosis [facility] Resident [address] [facility] [address] [phone] [place] [address] 07 Oct, 2020 Rafael Taylor IMMUNIZATIONS Vaccine Route Administration [...] week for 30 days Apr, Active Nystatin 867336 UNIT/GM 1 application to affected ar ea [...] day for 30 Active Easy Comfort Pen [place] 31G X 6 MM as directed intradermally [...] Medication Name Sig Start Date Stop Date Easy Comfort Pen [place] 31G X 6 MM as directed intradermally Da kelvin for 30 tiZANidine HCl 2 mg TAKE ONE TABLET BY MOUTH THR EE TIMES A DAY NEEDED orally once daily for 30 days Carvedilol 6.25 MG 1 tab Orally twice daily as needed, check BP prior, if systolic BP 140, skip dose for 90 days CeleXA 20 MG 0.5 tablet Orally Once a day for 30 Atorvastatin Calcium 40 MG 1 tablet Orally Once a day for 90 day s Trulicity 0.75 MG/0.5ML as directed Subcutaneous Once a week for 30 days Apr, Insurance Providers Payer Name Payer Address Payer Phone Insured Name Patient Relati onship to Insured Coverage Start Date [facility] End [facility] [employer] [facility] [address] [address] [facility] [phone] FRIDA DAN self
--- OUTSIDE RECORDS SUMMARY | 2020-12-12 10:03 | CCD ---
Author Author [facility] Organization [facility] Address Unknown Phone Unavailable Care Team Providers Care Structural Biologist Name Role Phone Vandana, L Lian COIL PLACER Unavailable Unavailable Vandana, L Lian COIL PLACER Unavailable Unavailable Vandana, L Lian COIL PLACER Unavailable Unavailable Vandana, L Lian COIL PLACER Unavailable Unavailable Vandana, L Lian COIL PLACER Unavailable Unavailable Vandana, L Lian COIL PLACER Unavailable Unavailable Vandana, L Lian COIL PLACER Unavailable Unavailable Vandana, L Lian COIL PLACER Unavailable Unavailable Vandana, L Lian COIL PLACER Unavailable Unavailable Vandana, L Lian COIL PLACER Unavailable Unavailable Vandana, L Lian COIL PLACER Unavailable Unavailable Vandana, L Lian COIL PLACER Unavailable Unavailable Vandana, L Lian COIL PLACER Unavailable Unavailable Vandana, L Lian COIL PLACER Unavailable Unavailable Vandana, L Lian COIL PLACER Unavailable Unavailable Vandana, L Lian COIL PLACER Unavailable Unavailable Vandana, L Lian COIL PLACER Unavailable Unavailable Vandana, L Lian COIL PLACER Unavailable Unavailable Vandana, L Lian COIL PLACER Unavailable Unavailable Vandana, L Lian COIL PLACER Unavailable Unavailable Vandana, L Lian COIL PLACER Unavailable Unavailable Avndana, L Lian COIL PLACER Unavailable Unavailable Vandana, L Lian COIL PLACER Unavailable Unavailable Vandana, L Lian COIL PLACER Unavailable Unavailable Vandana, L Lian COIL PLACER Unavailable Unavailable Fish, B Leonel BEAVERS Unavailable Unavailable Fish, B Leonel BEAVERS Unavailable Unavailable Fish, B Leonel BEAVERS Unavailable Unavailable Fish, B Leonel BEAVERS Unavailable Unavailable Fish, B Leonel BEAVERS Unavailable Unavailable Fish, B Leonel BEAVERS Unavailable Unavailable Fish, B Leonel BEAVERS Unavailable Unavailable Fish, B Leonel BEAVERS Unavailable Unavailable Fish, B Leonel BEAVERS Unavailable Unavailable Fish, B Leonel BEAVERS Unavailable Unavailable Fish, B Leonel BEAVERS Unavailable Unavailable Fish, B Leonel BEAVERS Unavailable Unavailable Fish, B Leonel BEAVERS Unavailable Unavailable Fish, B Leonel BEAVERS Unavailable Unavailable Fish, B Leonel BEAVERS Unavailable Unavailable Fish, B Leonel BEAVERS Unavailable Unavailable Fish, B Leonel BEAVERS Unavailable Unavailable Fish, B Leonel BEAVERS Unavailable Unavailable Fish, B Leonel BEAVERS Unavailable Unavailable Fish, B Leonel BEAVERS Unavailable Unavailable Fish, B Leonel BEAVERS Unavailable Unavailable Fish, B Leonel BEAVERS Unavailable Unavailable Fish, B Leonel BEAVERS Unavailable Unavailable Fish, B Leonel BEAVERS Unavailable Unavailable Fish, B Leonel BEAVERS Unavailable Unavailable Fish, B Leonel BEAVERS Unavailable Unavailable Fish, B Leonel BEAVERS Unavailable Unavailable Fish, B Leonel BEAVERS Unavailable Unavailable Fish, B Leonel BEAVERS Unavailable Unavailable Fish, B Leonel BEAVERS Unavailable Unavailable Fish, B Leonel BEAVERS Unavailable Unavailable Fish, B Leonel BEAVERS Unavailable Unavailable Fish, B Leonel BEAVERS Unavailable Unavailable Fish, B Leonel BEAVERS Unavailable Unavailable Fish, B Leonel BEAVERS Unavailable Unavailable Fish, B Leonel BEAVERS Unavailable Unavailable Fish, B Leonel BEAVERS Unavailable Unavailable Fish, B Leonel BEAVERS Unavailable Unavailable Fish, B Leonel BEAVERS Unavailable Unavailable Fish, B Leonel BEAVERS Unavailable Unavailable Fish, B Leonel BEAVERS Unavailable Unavailable Fish, B Leonel BEAVERS Unavailable Unavailable Fish, B Leonel BEAVERS Unavailable Unavailable Fish, B Leonel BEAVERS Unavailable Unavailable Fish, B Leonel BEAVERS Unavailable Unavailable Fish, B Leonel BEAVERS Unavailable Unavailable Fish, B Leonel BEAVERS Unavailable Unavailable Fish, B Leonel BEAVERS Unavailable Unavailable Fish, B Leonel BEAVERS Unavailable Unavailable Fish, B Leonel BEAVERS Unavailable Unavailable Fish, B Leonel BEAVERS Unavailable Unavailable Fish, B Leonel BEAVERS Unavailable Unavailable Fish, B Leonel BEAVERS Unavailable Unavailable Fish, B Leonel BEAVERS Unavailable Unavailable Fish, B Leonel BEAVERS Unavailable Unavailable Fish, B Leonel BEAVERS Unavailable Unavailable Feola, T Jacqui PA Unavailable Unavailable Feola, T Jacqui PA Unavailable Unavailable Feola, T Jacqui PA Unavailable Unavailable Feola, T Jacqui PA Unavailable Unavailable Feola, T Jacqui PA Unavailable Unavailable Feola, T Jacqui PA Unavailable Unavailable Feola, T Jacqui PA Unavailable Unavailable Feola, T Jacqui PA Unavailable Unavailable Feola, T Jacqui PA Unavailable Unavailable Feola, T Jacqui PA Unavailable Unavailable Feola, T Jacqui PA Unavailable Unavailable Feola, T Jacqui PA Unavailable Unavailable Feola, T Jacqui PA Unavailable Unavailable Feola, T Jacqui PA Unavailable Unavailable Feola, T Jacqui PA Unavailable Unavailable Feola, T Jacqui PA Unavailable Unavailable Feola, T Jacqui PA Unavailable Unavailable Feola, T Jacqui PA Unavailable Unavailable Feola, T Jacqui PA Unavailable Unavailable Feola, T Jacqui PA Unavailable Unavailable Feola, T Jacqui PA Unavailable Unavailable Feola, T Jacqui PA Unavailable Unavailable Feola, T Jacqui PA Unavailable Unavailable Feola, T Jacqui PA Unavailable Unavailable Feola, T Jacqui PA Unavailable Unavailable Feola, T Jacqui PA Unavailable Unavailable Feola, T Jacqui PA Unavailable Unavailable Feola, T Jacqui PA Unavailable Unavailable Feola, T Jacqui PA Unavailable Unavailable Feola, T Jacqui PA Unavailable Unavailable Feola, T Jacqui PA Unavailable Unavailable Feola, T Jacqui PA Unavailable Unavailable Feola, T Jacqui PA Unavailable Unavailable Feola, T Jacqui PA Unavailable Unavailable Feola, T Jacqui PA Unavailable Unavailable Feola, T Jacqui PA Unavailable Unavailable Feola, T Jacqui PA Unavailable Unavailable Feola, T Jacqui PA Unavailable Unavailable Feola, T Jacqui PA Unavailable Unavailable Feola, T Jacqui PA Unavailable Unavailable Feola, T Jacqui PA Unavailable Unavailable Re-disclosure Warning The records that you are about to access may contain information from federally-assisted alcohol or drug abuse programs. If such information is present, then the following federally mandated warning applies: This information has been disclosed to you from records protected by federal confidentiality rules (42 CFR part 2). The federal rules prohibit you from making any further disclosure of this information unless further disclosure is expressly permitted by the written consent of the person to whom it pertains or as otherwise permitted by 42 CFR part 2. A general authorization for the release of medical or other information is NOT sufficient for this purpose. The Federal rules restrict any use of the information to criminally investigate or prosecute any alcohol or drug abuse patient.The records that you are about to access may contain highly sensitive health information, the redisclosure of which is protected by Article 27-F of the [facility] Public [facility] law. If you continue you may have access to information: Regarding HIV / AIDS; Provided by facilities licensed or operated by the [facility] Office of Mental Health; or Provided by the [facility] Office for People With Developmental Disabilities. If such information is present, then the following [facility] mandated warning applies: This information has been disclosed to you from confidential records which are protected by state law. State law prohibits you from making any further disclosure of this information without the specific written consent of the person to whom it pertains, or as otherwise permitted by law. Any unauthorized further disclosure in violation of state law may result in a fine or halfway sentence or both. A general authorization for the release of medical or other information is NOT sufficient authorization for further disc losure. Encounters Encounter Providers Location Date Indications Data Source(s ) Unknown [address] [facility] [address] 11/24/2020 12:00:00 AM EDT eCW1 (On license of [facility]) Unknown [address] [facility] [address] 11/16/2020 12:00:00 AM EDT eCW1 (On license of [facility]) Unknown [address] [facility] [address] 10/29/2020 12:00:00 AM EDT eCW1 (On license of [facility]) Unknown [address] [facility] [address] 10/18/2020 12:00:00 AM EDT eCW1 (On license of [facility]) Unknown [address] [facility] [address] 10/09/2020 12:00:00 AM EDT eCW1 (On license of [facility]) Unknown [address] [facility] [address] 09/03/2020 12:00:00 AM EDT eCW1 (On license of [facility]) Unknown [address] [facility] [address] 08/09/2020 12:00:00 AM EDT eCW1 (On license of [facility]) Outpatient Attender: Lian Badillo/Moise/Joe/Edson 08/05/2020 09:00:00 AM EDT MEDENT ([facility]) Outpatient [address] [facility] [address] 08/05/2020 12:00:00 AM EDT eCW1 ([facility]) [place] [address] [facility] [address] 07/15/2020 12:00:00 AM EDT eCW1 ([facility]) Unknown [address] [facility] [address] 07/01/2020 12:00:00 AM EDT eCW1 ([facility]) Outpatient Attender: Leonel Ramirez MD Physical Therapy 06/03/2020 0 3:45:00 PM EDT [facility] ([facility]) Unknown [address] [facility] [place] [address] 05/22/2020 12:00:00 AM EDT eCW1 ([facility]) Out[place] [address] [facility] [place] [address] 05/21/2020 12:00:00 AM EDT eCW1 ([facility]) Outpatient Attender: Leonel Ramirez MD Physical Therapy 05/13/2020 1 0:00:00 AM EDT MEDENT ([facility]) Outpatient Attender: Jacqui GALE 021 01:24:52 PM EST - 04/28/2020 03:21:11 PM EST [facility] ([facility] ) Out[place] [address] [facility] [address] 02/19/2020 12:00:00 AM EST eCW1 ([facility]) Outpatient [address] [facility] [place] [address] 02/02/2020 12:00:00 AM EST eCW1 ([facility]) Unknown [address] [facility] [place] [address] 02/02/2020 12:00:00 AM EST eCW1 ([facility]) Unknown [address] [facility] [place] [address] 01/24/2020 12:00:00 AM EST eCW1 ([facility]) Unknown [address] [facility] [place] [address] 01/18/2020 12:00:00 AM EST eCW1 (On license of [facility]) Unknown [address] [facility] [place] [address] 11/14/2019 12:00:00 AM EDT eCW1 (On license of [facility]) Unknown [address] [facility] [place] [address] 11/14/2019 12:00:00 AM EDT eCW1 (On license of [facility]) Unknown [address] [facility] [place] [address] 11/14/2019 12:00:00 AM EDT eCW1 (On license of [facility]) Immunizations Vaccine Date Status Description Data Source(s) COVID-19 VACCINE Sunpreme 05/24/2020 12:00:00 AM EDT completed [facility] Vaccine Series Complete: YESThis Data wa s Submitted to [facility] Via [employer]. COVID-19 VACCINE Pfizer 05/03/2020 12:00:00 AM EST completed [facility] Vaccine Series Complete: NOThis Data was Submitted to [facility] Via [employer]. INFLUENZA VIRUS VACCINE QUADRIVALENT 2019- (6 MOS AN D UP) 01/07/2020 12:00:00 AM EST completed [facility] Medications Medication Brand Name Start Date Product Form Dose Route Admi nistrative Instructions Pharmacy Instructions Status Indications Reaction Description Data Source(s) 600 mg 11/25/2020 12:00:00 AM EDT tablet 180 TAKE ONE TABLET BY MOUTH TWICE A DAY TAKE ONE TABLET BY MOUTH TWICE A DAY SOLD: 11/25/2020 [facility] 60 mcg (15 mcg x 4)/0.5 mL 11/21/2020 12:00:00 AM EDT suspen kelly 0 INJECT INTRAMUSCULARLY DIRECTED INJECT INTRAMUSCULARLY DIRECTED SOLD: 11/21/2020 [facility] Lactase 3000 UNIT UNK 11/20/2020 12:00:00 AM EDT active Lactase 3000 UNIT eCW1 ([facility]) 100 unit/mL (3 mL) 11/20/2020 12:00:00 AM EDT insulin pen 15 USE DIRECTED UNDER THE SKIN 44 UNITS DAILY USE DIRECTED UNDER THE SKIN 44 UNITS DAILY SOLD: 11/21/2020 [facility] Clonidine Hydrochloride 0.1 MG Oral Tablet CLONIDINE HCL 11/11/2020 12:00:00 AM EDT tablet 30 TAKE ONE TABLET BY MOUTH AT BEDTIME TAKE ONE TABLET BY MOUTH AT BEDTIME SOLD: 12/06/2020 [facility] 5 mg 11/11/2020 12:00:00 AM EDT tablet 60 TAKE ONE TABLET BY MOUTH TWICE A DAY TAKE ONE TABLET BY MOUTH TWICE A DAY SOLD: 12/06/2020 [facility] 5 mg 11/11/2020 12:00:00 AM EDT tablet 60 TAKE ONE TABLET BY MOUTH TWICE A DAY TAKE ONE TABLET BY MOUTH TWICE A DAY SOLD: 11/11/2020 [facility] Hydrochlorothiazide 12.5 MG Oral Tablet HYDROCHLOROTHIAZIDE 11/11/2020 12:00:00 AM EDT tablet 30 TAKE ONE TABLET BY MOUTH JENY RY MORNING TAKE ONE TABLET BY MOUTH EVERY MORNING SOLD: 11/11/2020 [facility] Clonidine Hydrochloride 0.1 MG Oral Tablet CLONIDINE HCL 11/11/2020 12:00:00 AM EDT tablet 30 TAKE ONE TABLET BY MOUTH AT BEDTIME TAKE ONE TABLET BY MOUTH AT BEDTIME SOLD: 11/11/2020 [facility] Hydrochlorothiazide 12.5 MG Oral Tablet hydroCHLOROthi azide 12.5 MG hydroCHLOROthiazide 12.5 MG 11/08/2020 12:00:00 AM EDT 1.0 {tablet_in_the_morning} active hydroCHL OROthiazide 12.5 MG eCW1 ([facility]) Hydrochlorothiazide 12.5 MG Oral Tablet hydroCHLOROthi azide 12.5 MG hydroCHLOROthiazide 12.5 MG 11/08/2020 12:00:00 AM EDT 1.0 {tablet_in_the_morning} active hydroCHL OROthiazide 12.5 MG eCW1 ([facility]) Clonidine Hydrochloride 0.1 MG Oral Tablet cloNIDine H Cl 0.1 MG cloNIDine HCl 0.1 MG 11/08/2020 12:00:00 AM EDT 1.0 {tablet} activ e cloNIDine HCl 0.1 MG eCW1 ([facility]) Clonidine Hydrochloride 0.1 MG Oral Tablet cloNIDine H Cl 0.1 MG cloNIDine HCl 0.1 MG 11/08/2020 12:00:00 AM EDT 1.0 {tablet} activ e cloNIDine HCl 0.1 MG eCW1 ([facility]) 31 gauge x 1/4" 10/31/2020 12:00:00 AM EDT needle 30 USE DIRECTED INTRADERMALLY USE DIRECTED INTRADERMALLY SOLD: 11/25/2020 [facility] 31 gauge x 1/4" 10/31/2020 12:00:00 AM EDT needle 30 USE DIRECTED INTRADERMALLY USE DIRECTED INTRADERMALLY SOLD: 11/01/2020 [facility] Citalopram 20 MG Oral Tablet CITALOPRAM HYDROBROMIDE 10/19/2020 12:00:00 AM EDT tablet 15 TAKE ONE-HALF TABLET BY MOUTH EV NIMESH DAY TAKE ONE-HALF TABLET BY MOUTH EVERY DAY SOLD: 10/24/2020 [facility] tizanidine 2 MG Oral Tablet TIZANIDINE HCL 10/19/2020 12:00:00 AM EDT tablet 90 TAKE ONE TABLET BY MOUTH THREE TIMES A DAY NEEDED T JOSE ELIAS ONE TABLET BY MOUTH THREE TIMES A DAY NEEDED SOLD: 12/06/2020 [facility] carvedilol 6.25 MG Oral Tablet CARVEDILOL 10/19/2020 12:00:00 AM EDT tablet 90 TAKE ONE TABLET BY MOUTH TWICE A DAY NEEDED CHECK BLOOD PRESSURE PRIOR IF SYSTOLIC FOR BLOOD PRESSURE 140 SKIP DOSE TAKE ONE TABLET BY MOUTH TWICE A DAY NEEDED CHECK BLOOD PRESSURE PRIOR IF SYSTOLIC FOR BLOOD PRESSURE 140 SKIP DOSE SOLD: 12/06/2020 [facility] Citalopram 20 MG Oral Tablet CITALOPRAM HYDROBROMIDE 10/19/2020 12:00:00 AM EDT tablet 15 TAKE ONE-HALF TABLET BY MOUTH EV NIMESH DAY TAKE ONE-HALF TABLET BY MOUTH EVERY DAY SOLD: 11/21/2020 [facility] tizanidine 2 MG Oral Tablet TIZANIDINE HCL 10/19/2020 12:00:00 AM EDT tablet 90 TAKE ONE TABLET BY MOUTH THREE TIMES A DAY NEEDED T JOSE ELIAS ONE TABLET BY MOUTH THREE TIMES A DAY NEEDED SOLD: 10/24/2020 [facility] carvedilol 6.25 MG Oral Tablet CARVEDILOL 10/19/2020 12:00:00 AM EDT tablet 90 TAKE ONE TABLET BY MOUTH TWICE A DAY NEEDED CHECK BLOOD PRESSURE PRIOR IF SYSTOLIC FOR BLOOD PRESSURE 140 SKIP DOSE TAKE ONE TABLET BY MOUTH TWICE A DAY NEEDED CHECK BLOOD PRESSURE PRIOR IF SYSTOLIC FOR BLOOD PRESSURE 140 SKIP DOSE SOLD: 10/24/2020 [facility] atorvastatin 40 MG Oral Tablet ATORVASTATIN CALCIUM 10/11/2020 1 2:00:00 AM EDT tablet 90 TAKE ONE TABLET BY MOUTH EVERY D AY TAKE ONE TABLET BY MOUTH EVERY DAY SOLD: 10/14/2020 [facility] atorvastatin 40 MG Oral Tablet ATORVASTATIN CALCIUM 09/04/2020 1 2:00:00 AM EDT tablet 30 TAKE ONE TABLET BY MOUTH EVERY D AY TAKE ONE TABLET BY MOUTH EVERY DAY SOLD: 09/05/2020 [facility] 0.75 mg/0.5 mL 08/10/2020 12:00:00 AM EDT pen injector 2 INJECT DIRECTED ONCE A WEEK INJECT DIRECTED ONCE A WEEK SOLD: 10/08/2020 [facility] 0.75 mg/0.5 mL 08/10/2020 12:00:00 AM EDT pen injector 2 INJECT DIRECTED ONCE A WEEK INJECT DIRECTED ONCE A WEEK SOLD: 11/11/2020 [facility] 0.75 mg/0.5 mL 08/10/2020 12:00:00 AM EDT pen injector 2 INJECT DIRECTED ONCE A WEEK INJECT DIRECTED ONCE A WEEK SOLD: 08/15/2020 [facility] 0.75 mg/0.5 mL 08/10/2020 12:00:00 AM EDT pen injector 2 INJECT DIRECTED ONCE A WEEK INJECT DIRECTED ONCE A WEEK SOLD: 12/06/2020 [facility] tizanidine 2 MG Oral Tablet TIZANIDINE HCL 07/15/2020 12:00:00 AM EDT tablet 90 TAKE ONE TABLET BY MOUTH THREE TIMES A DAY NEEDED M AXIMUM DAILY DOSE = 3 TAKE ONE TABLET BY MOUTH THREE TIMES A DAY NEEDED MAXIMUM DAILY DOSE = 3 SOLD: 09/07/2020 [facility] 100 unit/mL (3 mL) 07/15/2020 12:00:00 AM EDT insulin pen 15 INJECT DIRECTED 44 UNITS SUBCUTANEOUSLY ONCE DAILY INJECT DIRECTED 44 UNITS SUBCUTANEOUSLY ONCE DAILY SOLD: 07/16/2020 [facility] carvedilol 6.25 MG Oral Tablet CARVEDILOL 07/15/2020 12:00:00 AM EDT tablet 60 TAKE ONE TABLET BY MOUTH TWICE A DAY NEEDED CHECK FOR BLOOD PRESSURE PRIOR, IF SYSTOLIC FOR BLOOD PRESSURE LESS THAN 140 SKIP DOSE TAKE ONE TABLET BY MOUTH TWICE A DAY NEEDED CHECK FOR BLOOD PRESSURE PRIOR, IF SYSTOLIC FOR BLOOD PRESSURE LESS THAN 140 SKIP DOSE SOLD: 09/22/2020 [facility] carvedilol 6.25 MG Oral Tablet CARVEDILOL 07/15/2020 12:00:00 AM EDT tablet 60 TAKE ONE TABLET BY MOUTH TWICE A DAY NEEDED CHECK FOR BLOOD PRESSURE PRIOR, IF SYSTOLIC FOR BLOOD PRESSURE LESS THAN 140 SKIP DOSE TAKE ONE TABLET BY MOUTH TWICE A DAY NEEDED CHECK FOR BLOOD PRESSURE PRIOR, IF SYSTOLIC FOR BLOOD PRESSURE LESS THAN 140 SKIP DOSE SOLD: 07/16/2020 [facility] carvedilol 6.25 MG Oral Tablet CARVEDILOL 07/15/2020 12:00:00 AM EDT tablet 60 TAKE ONE TABLET BY MOUTH TWICE A DAY NEEDED CHECK FOR BLOOD PRESSURE PRIOR, IF SYSTOLIC FOR BLOOD PRESSURE LESS THAN 140 SKIP DOSE TAKE ONE TABLET BY MOUTH TWICE A DAY NEEDED CHECK FOR BLOOD PRESSURE PRIOR, IF SYSTOLIC FOR BLOOD PRESSURE LESS THAN 140 SKIP DOSE SOLD: 08/26/2020 [facility] tizanidine 2 MG Oral Tablet TIZANIDINE HCL 07/15/2020 12:00:00 AM EDT tablet 90 TAKE ONE TABLET BY MOUTH THREE TIMES A DAY NEEDED M AXIMUM DAILY DOSE = 3 TAKE ONE TABLET BY MOUTH THREE TIMES A DAY NEEDED MAXIMUM DAILY DOSE = 3 SOLD: 07/16/2020 [facility] Lisinopril 20 MG Oral Tablet LISINOPRIL 07/01/2020 12:00:00 AM EDT tab let 180 TAKE TWO TABLETS BY MOUTH EVERY DAY TAKE TWO TABLETS BY MOUTH EVERY DAY SOLD: 07/02/2020 [facility] 20 mg 07/01/2020 12:00:00 AM EDT capsule,delayed release (DR/EC) 90 TAKE ONE CAPSULE BY MOUTH EVERY DAY TAKE ONE CAPSULE BY MOUTH EVERY DAY SOLD: 07/02/2020 [facility] 20 mg 07/01/2020 12:00:00 AM EDT tablet 180 TAKE TWO TABLETS BY MOUTH EVERY DAY TAKE TWO TABLETS BY MOUTH EVERY DAY SOLD: 10/08/2020 [facility] 20 mg 07/01/2020 12:00:00 AM EDT capsule,delayed release (DR/EC) 90 TAKE ONE CAPSULE BY MOUTH EVERY DAY TAKE ONE CAPSULE BY MOUTH EVERY DAY SOLD: 10/08/2020 [facility] 0.5 ML dulaglutide 1.5 MG/ML Auto-Injector [Trulicity] Trulicity 0.75 MG/0.5ML Trulicity 0.75 MG/0.5ML 05/21/2020 12:00:00 AM EDT active Trulicity 0.75 MG/0.5ML eCW1 ([facility]) 0.75 mg/0.5 mL 05/21/2020 12:00:00 AM EDT pen injector 2 INJECT 1 SUBCUTANEOUSLY ONCE A WEEK DIRECTED INJECT 1 SUBCUTANEOUSLY ONCE A WEEK DIRECTED SOLD: 05/22/2020 [facility] 0.5 ML dulaglutide 1.5 MG/ML Auto-Injector [Trulicity] Trulicity 0.75 MG/0.5ML Trulicity 0.75 MG/0.5ML 05/21/2020 12:00:00 AM EDT active Trulicity 0.75 MG/0.5ML eCW1 ([facility]) 0.5 ML dulaglutide 1.5 MG/ML Auto-Injector [Trulicity] Trulicity 0.75 MG/0.5ML Trulicity 0.75 MG/0.5ML 05/21/2020 12:00:00 AM EDT active Trulicity 0.75 MG/0.5ML eCW1 ([facility]) 0.5 ML dulaglutide 1.5 MG/ML Auto-Injector [Trulicity] Trulicity 0.75 MG/0.5ML Trulicity 0.75 MG/0.5ML 05/21/2020 12:00:00 AM EDT active Trulicity 0.75 MG/0.5ML eCW1 ([facility]) 0.75 mg/0.5 mL 05/21/2020 12:00:00 AM EDT pen injector 2 INJECT 1 SUBCUTANEOUSLY ONCE A WEEK DIRECTED INJECT 1 SUBCUTANEOUSLY ONCE A WEEK DIRECTED SOLD: 07/16/2020 [facility] 0.5 ML dulaglutide 1.5 MG/ML Auto-Injector [Trulicity] Trulicity 0.75 MG/0.5ML Trulicity 0.75 MG/0.5ML 05/21/2020 12:00:00 AM EDT active Trulicity 0.75 MG/0.5ML eCW1 ([facility]) 0.5 ML dulaglutide 1.5 MG/ML Auto-Injector [Trulicity] Trulicity 0.75 MG/0.5ML Trulicity 0.75 MG/0.5ML 05/21/2020 12:00:00 AM EDT active Trulicity 0.75 MG/0.5ML eCW1 ([facility]) 0.5 ML dulaglutide 1.5 MG/ML Auto-Injector [Trulicity] Trulicity 0.75 MG/0.5ML Trulicity 0.75 MG/0.5ML 05/21/2020 12:00:00 AM EDT active Trulicity 0.75 MG/0.5ML eCW1 ([facility]) 0.5 ML dulaglutide 1.5 MG/ML Auto-Injector [Trulicity] Trulicity 0.75 MG/0.5ML Trulicity 0.75 MG/0.5ML 05/21/2020 12:00:00 AM EDT active Trulicity 0.75 MG/0.5ML eCW1 ([facility]) 0.5 ML dulaglutide 1.5 MG/ML Auto-Injector [Trulicity] Trulicity 0.75 MG/0.5ML Trulicity 0.75 MG/0.5ML 05/21/2020 12:00:00 AM EDT active Trulicity 0.75 MG/0.5ML eCW1 ([facility]) 0.5 ML dulaglutide 1.5 MG/ML Auto-Injector [Trulicity] Trulicity 0.75 MG/0.5ML Trulicity 0.75 MG/0.5ML 05/21/2020 12:00:00 AM EDT active Trulicity 0.75 MG/0.5ML eCW1 ([facility]) 0.5 ML dulaglutide 1.5 MG/ML Auto-Injector [Trulicity] Trulicity 0.75 MG/0.5ML Trulicity 0.75 MG/0.5ML 05/21/2020 12:00:00 AM EDT active Trulicity 0.75 MG/0.5ML eCW1 ([facility]) 0.5 ML dulaglutide 1.5 MG/ML Auto-Injector [Trulicity] Trulicity 0.75 MG/0.5ML Trulicity 0.75 MG/0.5ML 05/21/2020 12:00:00 AM EDT active Trulicity 0.75 MG/0.5ML eCW1 ([facility]) 31 gauge x 1/4" 05/20/2020 12:00:00 AM EDT needle 30 DIRECTED ONCE DAILY DIRECTED ONCE DAILY SOLD: 09/25/2020 [facility] 31 gauge x 1/4" 05/20/2020 12:00:00 AM EDT needle 30 DIRECTED ONCE DAILY DIRECTED ONCE DAILY SOLD: 08/19/2020 [facility] 31 gauge x 1/4" 05/20/2020 12:00:00 AM EDT needle 30 DIRECTED ONCE DAILY DIRECTED ONCE DAILY SOLD: 05/22/2020 [facility] 31 gauge x 1/4" 05/20/2020 12:00:00 AM EDT needle 30 DIRECTED ONCE DAILY DIRECTED ONCE DAILY SOLD: 07/23/2020 [facility] 20 mg 04/26/2020 12:00:00 AM EST capsule,delayed release (DR/EC) 30 TAKE ONE CAPSULE BY MOUTH EVERY DAY TAKE ONE CAPSULE BY MOUTH EVERY DAY SOLD: 06/07/2020 [facility] 20 mg 04/26/2020 12:00:00 AM EST capsule,delayed release (DR/EC) 30 TAKE ONE CAPSULE BY MOUTH EVERY DAY TAKE ONE CAPSULE BY MOUTH EVERY DAY SOLD: 04/28/2020 [facility] 31 gauge x 1/4" 04/18/2020 12:00:00 AM EST needle 30 USE DIRECTED DAILY USE DIRECTED DAILY SOLD: 04/21/2020 [facility] atorvastatin 40 MG Oral Tablet ATORVASTATIN CALCIUM 04/04/2020 1 2:00:00 AM EST tablet 30 TAKE ONE TABLET BY MOUTH ONCE A DAY TAKE ONE TABLET BY MOUTH ONCE A DAY SOLD: 04/05/2020 [facility] atorvastatin 40 MG Oral Tablet ATORVASTATIN CALCIUM 04/04/2020 1 2:00:00 AM EST tablet 30 TAKE ONE TABLET BY MOUTH ONCE A DAY TAKE ONE TABLET BY MOUTH ONCE A DAY SOLD: 08/10/2020 [facility] atorvastatin 40 MG Oral Tablet ATORVASTATIN CALCIUM 04/04/2020 1 2:00:00 AM EST tablet 30 TAKE ONE TABLET BY MOUTH ONCE A DAY TAKE ONE TABLET BY MOUTH ONCE A DAY SOLD: 06/11/2020 [facility] Citalopram 20 MG Oral Tablet CITALOPRAM HYDROBROMIDE 04/03/2020 12:00:00 AM EST tablet 15 TAKE ONE-HALF TABLET BY MOUTH EV NIMESH DAY TAKE ONE-HALF TABLET BY MOUTH EVERY DAY SOLD: 05/02/2020 [facility] Citalopram 20 MG Oral Tablet CITALOPRAM HYDROBROMIDE 04/03/2020 12:00:00 AM EST tablet 15 TAKE ONE-HALF TABLET BY MOUTH EV NIMESH DAY TAKE ONE-HALF TABLET BY MOUTH EVERY DAY SOLD: 09/07/2020 [facility] Citalopram 20 MG Oral Tablet CITALOPRAM HYDROBROMIDE 04/03/2020 12:00:00 AM EST tablet 15 TAKE ONE-HALF TABLET BY MOUTH EV NIMESH DAY TAKE ONE-HALF TABLET BY MOUTH EVERY DAY SOLD: 06/07/2020 [facility] [facility] Citalopram 20 MG Oral Tablet CITALOPRAM HYDROBROMIDE 04/03/2020 12:00:00 AM EST tablet 15 TAKE ONE-HALF TABLET BY MOUTH EV NIMESH DAY TAKE ONE-HALF TABLET BY MOUTH EVERY DAY SOLD: 07/10/2020 [facility] Citalopram 20 MG Oral Tablet CITALOPRAM HYDROBROMIDE 04/03/2020 12:00:00 AM EST tablet 15 TAKE ONE-HALF TABLET BY MOUTH EV NIMESH DAY TAKE ONE-HALF TABLET BY MOUTH EVERY DAY SOLD: 08/10/2020 [facility] Citalopram 20 MG Oral Tablet CITALOPRAM HYDROBROMIDE 04/03/2020 12:00:00 AM EST tablet 15 TAKE ONE-HALF TABLET BY MOUTH EV NIMESH DAY TAKE ONE-HALF TABLET BY MOUTH EVERY DAY SOLD: 04/05/2020 [facility] 0.12 % 03/30/2020 12:00:00 AM EST mouthwash 473 RINSE 2 TEASPOONFUL AND SPIT OUT FOUR TIMES A DAY STARTING WEDNESDAY RINSE 2 TEASPOONFUL AND SPIT OUT FOUR TIMES A DAY STARTING WEDNESDAY SOLD: 03/30/2020 [facility] 500 mg 03/30/2020 12:00:00 AM EST capsule 15 TAKE ONE CAPSULE BY MOUTH EVERY 8 HOURS UNTIL GONE TAKE ONE CAPSULE BY MOUTH EVERY 8 HOURS UNTIL GONE SEGUNDO [facility] 5 mg 03/04/2020 12:00:00 AM EST tablet 30 TAKE ONE TABLET BY MOUTH EVERY DAY TAKE ONE TABLET BY MOUTH EVERY DAY SOLD: 08/10/2020 [facility] 5 mg 03/04/2020 12:00:00 AM EST tablet 30 TAKE ONE TABLET BY MOUTH EVERY DAY TAKE ONE TABLET BY MOUTH EVERY DAY SOLD: 03/05/2020 [facility] 5 mg 03/04/2020 12:00:00 AM EST tablet 30 TAKE ONE TABLET BY MOUTH EVERY DAY TAKE ONE TABLET BY MOUTH EVERY DAY SOLD: 04/03/2020 [facility] 5 mg 03/04/2020 12:00:00 AM EST tablet 30 TAKE ONE TABLET BY MOUTH EVERY DAY TAKE ONE TABLET BY MOUTH EVERY DAY SOLD: 05/02/2020 [facility] 5 mg 03/04/2020 12:00:00 AM EST tablet 30 TAKE ONE TABLET BY MOUTH EVERY DAY TAKE ONE TABLET BY MOUTH EVERY DAY SOLD: 06/07/2020 [facility] 5 mg 03/04/2020 12:00:00 AM EST tablet 30 TAKE ONE TABLET BY MOUTH EVERY DAY TAKE ONE TABLET BY MOUTH EVERY DAY SOLD: 07/10/2020 [facility] tizanidine 2 MG Oral Tablet TIZANIDINE HCL 02/28/2020 12:00:00 AM EST tablet 90 TAKE ONE TABLET BY MOUTH THREE TIMES A DAY NEEDED T JOSE ELIAS ONE TABLET BY MOUTH THREE TIMES A DAY NEEDED SOLD: 06/07/2020 [facility] tizanidine 2 MG Oral Tablet TIZANIDINE HCL 02/28/2020 12:00:00 AM EST tablet 90 TAKE ONE TABLET BY MOUTH THREE TIMES A DAY NEEDED T JOSE ELIAS ONE TABLET BY MOUTH THREE TIMES A DAY NEEDED SOLD: 04/18/2020 [facility] tizanidine 2 MG Oral Tablet TIZANIDINE HCL 02/28/2020 12:00:00 AM EST tablet 90 TAKE ONE TABLET BY MOUTH THREE TIMES A DAY NEEDED T JOSE ELIAS ONE TABLET BY MOUTH THREE TIMES A DAY NEEDED SOLD: 03/03/2020 [facility] 100 unit/mL (3 mL) 02/19/2020 12:00:00 AM EST insulin pen 15 USE DIRECTED , MAXIMUM DAILY DOSE = 44 UNITS USE DIRECTED , MAXIMUM DAILY DOSE = 4 4 UNITS SOLD: 09/04/2020 [facility] 20 mg 02/19/2020 12:00:00 AM EST tablet 60 TAKE TWO TABLETS BY MOUTH EVERY DAY TAKE TWO TABLETS BY MOUTH EVERY DAY SOLD: 04/03/2020 [facility] 100 mg 02/19/2020 12:00:00 AM EST tablet 30 TAKE ONE TABLET BY MOUTH EVERY DAY TAKE ONE TABLET BY MOUTH EVERY DAY SOLD: 04/03/2020 [facility] 100 unit/mL (3 mL) 02/19/2020 12:00:00 AM EST insulin pen 15 USE DIRECTED , MAXIMUM DAILY DOSE = 44 UNITS USE DIRECTED , MAXIMUM DAILY DOSE = 4 4 UNITS SOLD: 06/20/2020 [facility] 100 mg 02/19/2020 12:00:00 AM EST tablet 30 TAKE ONE TABLET BY MOUTH EVERY DAY TAKE ONE TABLET BY MOUTH EVERY DAY SOLD: 02/21/2020 [facility] 100 unit/mL (3 mL) 02/19/2020 12:00:00 AM EST insulin pen 15 USE DIRECTED , MAXIMUM DAILY DOSE = 44 UNITS USE DIRECTED , MAXIMUM DAILY DOSE = 4 4 UNITS SOLD: 10/09/2020 [facility] 20 mg 02/19/2020 12:00:00 AM EST tablet 60 TAKE TWO TABLETS BY MOUTH EVERY DAY TAKE TWO TABLETS BY MOUTH EVERY DAY SOLD: 05/02/2020 [facility] 20 mg 02/19/2020 12:00:00 AM EST tablet 60 TAKE TWO TABLETS BY MOUTH EVERY DAY TAKE TWO TABLETS BY MOUTH EVERY DAY SOLD: 02/21/2020 [facility] Lisinopril 20 MG Oral Tablet LISINOPRIL 02/19/2020 12:00:00 AM EST tab let 60 TAKE TWO TABLETS BY MOUTH EVERY DAY TAKE TWO TABLETS BY MOUTH EVERY DAY SOLD: 06/07/2020 [facility] 100 unit/mL (3 mL) 02/19/2020 12:00:00 AM EST insulin pen 15 USE DIRECTED , MAXIMUM DAILY DOSE = 44 UNITS USE DIRECTED , MAXIMUM DAILY DOSE = 4 4 UNITS SOLD: 04/12/2020 [facility] 100 unit/mL (3 mL) 02/19/2020 12:00:00 AM EST insulin pen 15 USE DIRECTED , MAXIMUM DAILY DOSE = 44 UNITS USE DIRECTED , MAXIMUM DAILY DOSE = 4 4 UNITS SOLD: 05/19/2020 [facility] 100 mg 02/19/2020 12:00:00 AM EST tablet 30 TAKE ONE TABLET BY MOUTH EVERY DAY TAKE ONE TABLET BY MOUTH EVERY DAY SOLD: 05/02/2020 [facility] 100 unit/mL (3 mL) 02/19/2020 12:00:00 AM EST insulin pen 15 USE DIRECTED , MAXIMUM DAILY DOSE = 44 UNITS USE DIRECTED , MAXIMUM DAILY DOSE = 4 4 UNITS SOLD: 02/21/2020 [facility] atorvastatin 40 MG Oral Tablet ATORVASTATIN CALCIUM 02/12/2020 1 2:00:00 AM EST tablet 30 TAKE ONE TABLET BY MOUTH EVERY D AY TAKE ONE TABLET BY MOUTH EVERY DAY SOLD: 02/12/2020 [facility] atorvastatin 40 MG Oral Tablet ATORVASTATIN CALCIUM 02/12/2020 1 2:00:00 AM EST tablet 30 TAKE ONE TABLET BY MOUTH EVERY D AY TAKE ONE TABLET BY MOUTH EVERY DAY SOLD: 05/19/2020 [facility] 5-325 mg 02/12/2020 12:00:00 AM EST tablet 12 TAKE ONE TABLET BY MOUTH EVERY 4 TO 6 HOURS NEEDED FOR PAIN MAXIMUM DAILY DOSE = 4 TABLETS TAKE ONE TABLET BY MOUTH EVERY 4 TO 6 HOURS NEEDED FOR PAIN MAXIMUM DAILY DOSE = 4 TABLETS SOLD: 02/12/2020 [facility] 500 mg 02/12/2020 12:00:00 AM EST capsule 21 TAKE ONE CAPSULE BY MOUTH EVERY 8 HOURS UNTIL GONE TAKE ONE CAPSULE BY MOUTH EVERY 8 HOURS UNTIL GONE SEGUNDO [facility] atorvastatin 40 MG Oral Tablet ATORVASTATIN CALCIUM 02/12/2020 1 2:00:00 AM EST tablet 30 TAKE ONE TABLET BY MOUTH EVERY D AY TAKE ONE TABLET BY MOUTH EVERY DAY SOLD: 07/16/2020 [facility] 0.12 % 02/12/2020 12:00:00 AM EST mouthwash 473 USE 10ML BY MOUTH TO RINSE AND SPIT FOUR TIMES A DAY STARTING TOMORROW USE 10ML BY MOUTH TO RINSE AND SPIT FOUR TIMES A DAY STARTING TOMORROW SOLD: 02/12/2020 [facility] carvedilol 6.25 MG Oral Tablet CARVEDILOL 02/03/2020 12:00:00 AM EST tablet 60 TAKE ONE TABLET BY MOUTH TWICE A DAY NEEDED CHECK BLOOD PRESSURE (IF SYSTOLIC B.P. LESS THAN 140 SKIP DOSE) TAKE ONE TABLET BY MOUTH TWICE A DAY NEEDED CHECK BLOOD PRESSURE (IF SYSTOLIC B.P. LESS THAN 140 SKIP DOSE) SOLD: 04/18/2020 [facility] Citalopram 20 MG Oral Tablet CITALOPRAM HYDROBROMIDE 02/03/2020 12:00:00 AM EST tablet 15 TAKE 1/2 TABLET BY MOUTH ONCE DA ZOEY TAKE 1/2 TABLET BY MOUTH ONCE DAILY SOLD: 03/03/2020 [email or web address] 600 mg 02/03/2020 12:00:00 AM EST tablet 270 TAKE ONE TABLET BY MOUTH THREE TIMES A DAY NEEDED TAKE ONE TABLET BY MOUTH THREE TIMES A DAY NEEDED S OLD: 02/05/2020 [facility] 5 mg 02/03/2020 12:00:00 AM EST tablet 30 TAKE ONE TABLET BY MOUTH EVERY DAY TAKE ONE TABLET BY MOUTH EVERY DAY SOLD: 02/05/2020 [facility] carvedilol 6.25 MG Oral Tablet CARVEDILOL 02/03/2020 12:00:00 AM EST tablet 60 TAKE ONE TABLET BY MOUTH TWICE A DAY NEEDED CHECK BLOOD PRESSURE (IF SYSTOLIC B.P. LESS THAN 140 SKIP DOSE) TAKE ONE TABLET BY MOUTH TWICE A DAY NEEDED CHECK BLOOD PRESSURE (IF SYSTOLIC B.P. LESS THAN 140 SKIP DOSE) SOLD: 02/05/2020 [facility] carvedilol 6.25 MG Oral Tablet CARVEDILOL 02/03/2020 12:00:00 AM EST tablet 60 TAKE ONE TABLET BY MOUTH TWICE A DAY NEEDED CHECK BLOOD PRESSURE (IF SYSTOLIC B.P. LESS THAN 140 SKIP DOSE) TAKE ONE TABLET BY MOUTH TWICE A DAY NEEDED CHECK BLOOD PRESSURE (IF SYSTOLIC B.P. LESS THAN 140 SKIP DOSE) SOLD: 05/19/2020 [facility] carvedilol 6.25 MG Oral Tablet CARVEDILOL 02/03/2020 12:00:00 AM EST tablet 60 TAKE ONE TABLET BY MOUTH TWICE A DAY NEEDED CHECK BLOOD PRESSURE (IF SYSTOLIC B.P. LESS THAN 140 SKIP DOSE) TAKE ONE TABLET BY MOUTH TWICE A DAY NEEDED CHECK BLOOD PRESSURE (IF SYSTOLIC B.P. LESS THAN 140 SKIP DOSE) SOLD: 06/20/2020 [facility] 600 mg 02/03/2020 12:00:00 AM EST tablet 270 TAKE ONE TABLET BY MOUTH THREE TIMES A DAY NEEDED TAKE ONE TABLET BY MOUTH THREE TIMES A DAY NEEDED S OLD: 07/16/2020 [facility] Citalopram 20 MG Oral Tablet CITALOPRAM HYDROBROMIDE 02/03/2020 12:00:00 AM EST tablet 15 TAKE 1/2 TABLET BY MOUTH ONCE DA ZOEY TAKE 1/2 TABLET BY MOUTH ONCE DAILY SOLD: 02/05/2020 [facility] Amlodipine 5 MG Oral Tablet AmLODIPine Besylate 5 MG AmLODIP ine Besylate 5 MG 02/02/2020 12:00:00 AM EST 1.0 {tablet} active AmLODIPine Besylate 5 MG eCW1 ([facility]) Amlodipine 5 MG Oral Tablet AmLODIPine Besylate 5 MG AmLODIP ine Besylate 5 MG 02/02/2020 12:00:00 AM EST 1.0 {tablet} active AmLODIPine Besylate 5 MG eCW1 ([facility]) Amlodipine 5 MG Oral Tablet AmLODIPine Besylate 5 MG AmLODIP ine Besylate 5 MG 02/02/2020 12:00:00 AM EST 1.0 {tablet} active AmLODIPine Besylate 5 MG eCW1 ([facility]) BLOOD SUGAR DIAGNOSTIC 01/23/2020 12:00:00 AM EST strip 100 USE DIRECTED TWO TIMES A DAY AN NEEDED USE DIRECTED TWO TIMES A DAY AN NEEDED SOLD: 03/22/2020 [facility] BLOOD SUGAR DIAGNOSTIC 01/23/2020 12:00:00 AM EST strip 100 USE DIRECTED TWO TIMES A DAY AN NEEDED USE DIRECTED TWO TIMES A DAY AN NEEDED SOLD: 10/08/2020 [facility] BLOOD SUGAR DIAGNOSTIC 01/23/2020 12:00:00 AM EST strip 100 USE DIRECTED TWO TIMES A DAY AN NEEDED USE DIRECTED TWO TIMES A DAY AN NEEDED SOLD: 01/24/2020 [facility] tizanidine 2 MG Oral Tablet TIZANIDINE HCL 11/25/2019 12:00:00 AM EDT tablet 30 TAKE ONE TABLET BY MOUTH THREE TIMES A DAY NEEDED T JOSE ELIAS ONE TABLET BY MOUTH THREE TIMES A DAY NEEDED SOLD: 02/02/2020 [facility] 2 mg 11/25/2019 12:00:00 AM EDT tablet 30 TAKE ONE TABLET BY MOUTH THREE TIMES A DAY NEEDED TAKE ONE TABLET BY MOUTH THREE TIMES A DAY NEEDED S OLD: 12/14/2019 [facility] 2 mg 11/25/2019 12:00:00 AM EDT tablet 30 TAKE ONE TABLET BY MOUTH THREE TIMES A DAY NEEDED TAKE ONE TABLET BY MOUTH THREE TIMES A DAY NEEDED S OLD: 11/30/2019 [facility] 2 mg 11/25/2019 12:00:00 AM EDT tablet 30 TAKE ONE TABLET BY MOUTH THREE TIMES A DAY NEEDED TAKE ONE TABLET BY MOUTH THREE TIMES A DAY NEEDED S OLD: 01/10/2020 [facility] 20 mg 11/25/2019 12:00:00 AM EDT capsule,delayed release (DR/EC) 30 TAKE ONE CAPSULE BY MOUTH EVERY DAY TAKE ONE CAPSULE BY MOUTH EVERY DAY SOLD: 11/30/2019 [facility] 20 mg 11/25/2019 12:00:00 AM EDT capsule,delayed release (DR/EC) 30 TAKE ONE CAPSULE BY MOUTH EVERY DAY TAKE ONE CAPSULE BY MOUTH EVERY DAY SOLD: 03/03/2020 [facility] 20 mg 11/25/2019 12:00:00 AM EDT capsule,delayed release (DR/EC) 30 TAKE ONE CAPSULE BY MOUTH EVERY DAY TAKE ONE CAPSULE BY MOUTH EVERY DAY SOLD: 02/02/2020 [facility] 20 mg 11/25/2019 12:00:00 AM EDT capsule,delayed release (DR/EC) 30 TAKE ONE CAPSULE BY MOUTH EVERY DAY TAKE ONE CAPSULE BY MOUTH EVERY DAY SOLD: 03/30/2020 [facility] 2 mg 11/08/2019 12:00:00 AM EDT tablet 60 TAKE ONE TABLET BY MOUTH TWICE A DAY TAKE ONE TABLET BY MOUTH TWICE A DAY SOLD: 11/13/2019 [facility] 875 mg 11/01/2019 12:00:00 AM EDT tablet 10 TAKE ONE TABLET BY MOUTH TWICE A DAY TAKE ONE TABLET BY MOUTH TWICE A DAY SOLD: 11/01/2019 [facility] 20 mg 10/19/2019 12:00:00 AM EDT tablet 30 TAKE ONE TABLET BY MOUTH EVERY DAY TAKE ONE TABLET BY MOUTH EVERY DAY SOLD: 10/20/2019 [facility] 100 mg 10/17/2019 12:00:00 AM EDT tablet 30 TAKE ONE TABLET BY MOUTH EVERY DAY TAKE ONE TABLET BY MOUTH EVERY DAY SOLD: 10/18/2019 [facility] 100 mg 10/17/2019 12:00:00 AM EDT tablet 30 TAKE ONE TABLET BY MOUTH EVERY DAY TAKE ONE TABLET BY MOUTH EVERY DAY SOLD: 01/22/2020 [facility] 40 mg 10/17/2019 12:00:00 AM EDT capsule,delayed release (DR/EC) 30 TAKE ONE CAPSULE BY MOUTH EVERY DAY TAKE ONE CAPSULE BY MOUTH EVERY DAY SOLD: 10/18/2019 [facility] 100 mg 10/17/2019 12:00:00 AM EDT tablet 30 TAKE ONE TABLET BY MOUTH EVERY DAY TAKE ONE TABLET BY MOUTH EVERY DAY SOLD: 11/22/2019 [facility] 100 mg 10/17/2019 12:00:00 AM EDT tablet 30 TAKE ONE TABLET BY MOUTH EVERY DAY TAKE ONE TABLET BY MOUTH EVERY DAY SOLD: 12/25/2019 [facility] 40 mg 10/17/2019 12:00:00 AM EDT capsule,delayed release (DR/EC) 30 TAKE ONE CAPSULE BY MOUTH EVERY DAY TAKE ONE CAPSULE BY MOUTH EVERY DAY SOLD: 11/22/2019 [facility] 100 unit/mL (3 mL) 08/25/2019 12:00:00 AM EDT insulin pen 15 INJECT 40 UNITS UNDER THE SKIN ONCE DAILY DIRECTED INJECT 40 UNITS UNDER THE SKIN ONCE ISREAL Y DIRECTED SOLD: 11/08/2019 [facility] 100 unit/mL (3 mL) 08/25/2019 12:00:00 AM EDT insulin pen 15 INJECT 40 UNITS UNDER THE SKIN ONCE DAILY DIRECTED INJECT 40 UNITS UNDER THE SKIN ONCE ISREAL Y DIRECTED SOLD: 01/27/2020 [facility] 100 unit/mL (3 mL) 08/25/2019 12:00:00 AM EDT insulin pen 15 INJECT 40 UNITS UNDER THE SKIN ONCE DAILY DIRECTED INJECT 40 UNITS UNDER THE SKIN ONCE ISREAL Y DIRECTED SOLD: 12/14/2019 [facility] atorvastatin 40 MG Oral Tablet ATORVASTATIN CALCIUM 08/10/2019 1 2:00:00 AM EDT tablet 30 TAKE ONE TABLET BY MOUTH EVERY D AY TAKE ONE TABLET BY MOUTH EVERY DAY SOLD: 01/22/2020 [facility] atorvastatin 40 MG Oral Tablet ATORVASTATIN CALCIUM 08/10/2019 1 2:00:00 AM EDT tablet 30 TAKE ONE TABLET BY MOUTH EVERY D AY TAKE ONE TABLET BY MOUTH EVERY DAY SOLD: 03/07/2020 [facility] atorvastatin 40 MG Oral Tablet ATORVASTATIN CALCIUM 08/10/2019 1 2:00:00 AM EDT tablet 30 TAKE ONE TABLET BY MOUTH EVERY D AY TAKE ONE TABLET BY MOUTH EVERY DAY SOLD: 11/08/2019 [facility] 31 gauge x 1/4" 08/10/2019 12:00:00 AM EDT needle 30 USE DIRECTED DAILY INTRADERMALLY USE DIRECTED DAILY INTRADERMALLY SOLD: 12/06/2019 [facility] 31 gauge x 1/4" 08/10/2019 12:00:00 AM EDT needle 30 USE DIRECTED DAILY INTRADERMALLY USE DIRECTED DAILY INTRADERMALLY SOLD: 03/22/2020 [facility] 31 gauge x 1/4" 08/10/2019 12:00:00 AM EDT needle 30 USE DIRECTED DAILY INTRADERMALLY USE DIRECTED DAILY INTRADERMALLY SOLD: 11/08/2019 [facility] atorvastatin 40 MG Oral Tablet ATORVASTATIN CALCIUM 08/10/2019 1 2:00:00 AM EDT tablet 30 TAKE ONE TABLET BY MOUTH EVERY D AY TAKE ONE TABLET BY MOUTH EVERY DAY SOLD: 12/25/2019 [facility] 600 mg 07/27/2019 12:00:00 AM EDT tablet 90 TAKE ONE TABLET BY MOUTH THREE TIMES A DAY NEEDED TAKE ONE TABLET BY MOUTH THREE TIMES A DAY NEEDED S OLD: 11/08/2019 [facility] 600 mg 07/27/2019 12:00:00 AM EDT tablet 90 TAKE ONE TABLET BY MOUTH THREE TIMES A DAY NEEDED TAKE ONE TABLET BY MOUTH THREE TIMES A DAY NEEDED S OLD: 01/10/2020 [facility] 20 mg 07/27/2019 12:00:00 AM EDT tablet 60 TAKE TWO TABLETS BY MOUTH EVERY DAY TAKE TWO TABLETS BY MOUTH EVERY DAY SOLD: 01/22/2020 [facility] 20 mg 07/27/2019 12:00:00 AM EDT tablet 60 TAKE TWO TABLETS BY MOUTH EVERY DAY TAKE TWO TABLETS BY MOUTH EVERY DAY SOLD: 11/22/2019 [facility] 20 mg 07/27/2019 12:00:00 AM EDT tablet 60 TAKE TWO TABLETS BY MOUTH EVERY DAY TAKE TWO TABLETS BY MOUTH EVERY DAY SOLD: 12/25/2019 [facility] 30 gauge 06/20/2019 12:00:00 AM EDT misc 100 USE TWO TIMES A DAY INTRADERMALLY USE TWO TIMES A DAY INTRADERMALLY SOLD: 04/03/2020 [facility] 30 gauge 06/20/2019 12:00:00 AM EDT misc 100 USE TWO TIMES A DAY INTRADERMALLY USE TWO TIMES A DAY INTRADERMALLY SOLD: 12/06/2019 [facility] Insurance Providers Payer name Policy type / Coverage type Policy ID Covered alliance party ID Covered alliance party's relationship to briggs Policy Briggs Plan Information [facility] [id number] SP [id number] [employer] BLUE [id number] SP [id number] [facility] [id number] SP [id number] [facility] [id number] SP [id number] [employer] [id number] Haleigh f [id number] [place] B [id number] Self [id number] ANSI-Not a Secondary Insurance [id number] ANSI-Not a Secondary Insurance [id number] ANSI-Commercial [id number] ANSI-Not a Secondary Insurance [id number] ANSI-Commercial [id number] ANSI-Not a Secondary Insurance [id number] ANSI-Not a Secondary Insurance [id number] [facility] [employer] ([employer]) [id number] Family Dependent [id number] ANSI-Not a Secondary Insurance [id number] ANSI-Not a Secondary Insurance [id number] ANSI-Commercial [id number] ANSI-Not a Secondary Insurance [id number] ANSI-Not a Secondary Insurance [id number] ANSI-Commercial [id number] ANSI-Commercial [id number] ANSI-Not a Secondary Insurance [id number] ANSI-Not a Secondary Insurance [id number] ANSI-Commercial [id number] ANSI-Not a Secondary Insurance [id number] ANSI-Not a Secondary Insurance [id number] ANSI-Commercial [id number] ANSI-Not a Secondary Insurance [id number] ANSI-Not a Secondary Insurance [id number] ANSI-Commercial [id number] ANSI-Not a Secondary Insurance [id number] ANSI-Not a Secondary Insurance [id number] ANSI-Not a Secondary Insurance [id number] ANSI-Commercial [id number] ANSI-Not a Secondary Insurance [id number] ANSI-Not a Secondary Insurance [id number] ANSI-Not a Secondary Insurance [id number] ANSI-Commercial [id number] ANSI-Commercial [id number] ANSI-Not a Secondary Insurance [id number] ANSI-Not a Secondary Insurance [id number] ANSI-Not a Secondary Insurance [id number] ANSI-Not a Secondary Insurance [id number] ANSI-Commercial [id number] ANSI-Not a Secondary Insurance [id number] ANSI-Not a Secondary Insurance [id number] ANSI-Commercial [id number] ANSI-Commercial [id number] ANSI-Not a Secondary Insurance [id number] ANSI-Not a Secondary Insurance [id number] ANSI-Not a Secondary Insurance [id number] ANSI-Not a Secondary Insurance [id number] ANSI-Commercial [id number] ANSI-Commercial [id number] ANSI-Not a Secondary Insurance [id number] ANSI-Not a Secondary Insurance [id number] ANSI-Not a Secondary Insurance [id number] ANSI-Commercial [id number] ANSI-Not a Secondary Insurance [id number] [facility] [id number] SP [id number] [facility] [id number] [facility] Health Maintenance Organization (HMO) [id number] Family Dependent [id number] [facility] O [id number] S [id number] [employer] [place] 302/307 [id number] SP [id number] [employer] [place]PO 302/307 [id number] SP [id number] [employer] B [id number] S YNC [id number] SELF PAY ONLY [id number] SP [id number] HMO BLUE [id number] SP [id number] [employer] [place] PPO 302/307 [id number] SP [id number] O UNAVAILABLE UNA[employer] BLE WELLCARE [id number] SP [id number] SELF PAY UNAVAILABLE SP UNAVAILA BLE ANSI-Commercial [id number] ANSI-Not a Secondary Insurance [id number] ANSI-Not a Secondary Insurance [id number] ANSI-Not a Secondary Insurance [id number] ANSI-Commercial [id number] Problems, Conditions, and Diagnoses Code Display Name Description Problem Type Effective Dates Data Source(s) 83695977 Essential hypertension Essential hypertension Problem 05/13/2020 12:00:00 AM EDT [facility] ([facility] ) [id number] Pure hypercholesterolemia Pure hypercholesterolemia Pr oblem 05/13/2020 12:00:00 AM EDT [facility] ([facility] ) E11.9 053420043 Type 2 diabetes mellitus without complica tions Problem 02/02/2020 12:00:00 AM EST eCW1 ([facility]) Surgeries/Procedures Procedure Description Date Indications Data Source(s) MRI Lower Extremity Other Than Joint 05/29/2020 12:00: 00 AM EDT [facility] ([facility]) MRI Lower Extremity Other Than Joint 05/29/2020 12:00: 00 AM EDT [facility] ([facility]) Results No Information Social History Code Duration Value Status Description Data Source(s ) Smoking 11/19/2020 12:00:00 AM EDT Former Smoker completed Former Smoker eCW1 ([facility]) Smoking 11/19/2020 12:00:00 AM EDT Former Smoker completed Former Smoker eCW1 ([facility]) Smoking 08/05/2020 12:00:00 AM EDT Former Smoker completed Former Smoker eCW1 ([facility]) Smoking 08/05/2020 12:00:00 AM EDT Former Smoker completed Former Smoker eCW1 ([facility]) Smoking 08/05/2020 12:00:00 AM EDT Former Smoker completed Former Smoker eCW1 ([facility]) Smoking 08/05/2020 12:00:00 AM EDT Former Smoker completed Former Smoker eCW1 ([facility]) Smoking 08/05/2020 12:00:00 AM EDT Patient is a former smoker completed Patient is a former smoker [facility] ([facility] ) Smoking 08/05/2020 12:00:00 AM EDT Former Smoker completed Former Smoker eCW1 ([facility]) Smoking 08/05/2020 12:00:00 AM EDT Former Smoker completed Former Smoker eCW1 ([facility]) Smoking 05/21/2020 12:00:00 AM EDT Former Smoker completed Former Smoker eCW1 ([facility]) Smoking 05/21/2020 12:00:00 AM EDT Former Smoker completed [facility] [place]) Smoking 05/21/2020 12:00:00 AM EDT Former Smoker completed Former Smoker eCW1 ([facility]) Smoking 05/21/2020 12:00:00 AM EDT Former Smoker completed Former Smoker eCW1 ([facility]) Smoking 02/19/2020 12:00:00 AM EST Former Smoker completed Former Smoker eCW1 ([facility]) Smoking 02/02/2020 12:00:00 AM EST Former Smoker completed Former Smoker eCW1 ([facility]) Smoking 02/02/2020 12:00:00 AM EST Former Smoker completed Former Smoker eCW1 ([facility]) Smoking 11/27/2019 12:00:00 AM EDT Former Smoker completed Former Smoker eCW1 ([facility]) Smoking 11/27/2019 12:00:00 AM EDT Former Smoker completed Former Smoker eCW1 ([facility]) Vital Signs ID Date Data Source UNK Name Value Range Interpretation Code Description Data Source(s) Body weight 256.8 [lb_av] 256.8 [lb_av] eCW1 ([facility]) Systolic blood pressure 138 mm[Hg] 138 mm[Hg] e CW1 ([facility]) Diastolic blood pressure 70 mm[Hg] 70 mm[Hg] eCW1 ([facility]) Body height 70 [in_i] 70 [in_i] eCW1 ([facility]) Body mass index (BMI) [Ratio] 36.84 kg/m2 36.84 kg/m2 eCW1 ([facility]) Heart rate 89 /min 89 /min eCW1 ([facility]) Respiratory rate 18 /min 18 /min eCW1 ([facility]) Body temperature 95.6 [degF] 95.6 [degF] eCW1 ( [facility]) Systolic blood pressure 140 mm[Hg] 140 mm[Hg] M EDENT ([facility], ) Diastolic blood pressure 70 mm[Hg] 70 mm[Hg] MEDENT ([facility], ) Heart rate 63 /min 63 /min [facility] ([facility], ) Oxygen saturation in Arterial blood by Pulse oximetry 98 % 98 % [facility] ([facility], ) Body height 71 [in_i] 71 [in_i] MEDENT ([facility], ) 5'11" Body weight 257.38 [lb_av] 257.38 [lb_av] MEDEN T ([facility], ) Body mass index (BMI) [Ratio] 35.9 kg/m2 35.9 k g/m2 [facility] ([facility], ) [place] body weight 172 [lb_av] 172 [lb_av] MEDEN T ([facility], ) Body weight 116.745 kg 116.745 kg [facility] ([facility]) Body surface area Derived from formula 2.35 m2 2.35 m2 MEDENT ([facility]) Body weight 263.8 [lb_av] 263.8 [lb_av] eCW1 ([facility]) Body height 70 [in_i] 70 [in_i] eCW1 ([facility]) Body mass index (BMI) [Ratio] 37.85 kg/m2 37.85 kg/m2 eCW1 ([facility]) Heart rate 82 /min 82 /min eCW1 ([facility]) Respiratory rate 18 /min 18 /min eCW1 ([facility]) Body temperature 96.2 [degF] 96.2 [degF] eCW1 ( [facility]) Systolic blood pressure 144 mm[Hg] 144 mm[Hg] e CW1 ([facility]) Diastolic blood pressure 82 mm[Hg] 82 mm[Hg] eCW1 ([facility]) Body temperature 96.9 [degF] 96.9 [degF] MEDENT ([facility] ) Body height 69.5 [in_i] 69.5 [in_i] MEDENT ([facility] ) 5'9.50" Body weight 259.50 [lb_av] 259.50 [lb_av] MEDEN T ([facility] ) Body mass index (BMI) [Ratio] 37.8 kg/m2 37.8 k g/m2 [facility] ([facility] ) Body weight 255 [lb_av] 255 [lb_av] eCW1 ([facility] hospital) Body height 70 [in_i] 70 [in_i] eCW1 ([facility]) Body mass index (BMI) [Ratio] 36.58 kg/m2 36.58 kg/m2 eCW1 ([facility]) Heart rate 82 /min 82 /min eCW1 ([facility]) Respiratory rate 17 /min 17 /min eCW1 ([facility]) Body temperature 97.4 [degF] 97.4 [degF] eCW1 ( [facility]) Systolic blood pressure 120 mm[Hg] 120 mm[Hg] e CW1 ([facility]) Diastolic blood pressure 78 mm[Hg] 78 mm[Hg] eCW1 ([facility]) Systolic blood pressure 174 mm[Hg] 174 mm[Hg] e CW1 ([facility]) Body temperature 96.0 [degF] 96.0 [degF] eCW1 ( [facility]) Diastolic blood pressure 96 mm[Hg] 96 mm[Hg] eCW1 ([facility]) Body weight 256 [lb_av] 256 [lb_av] eCW1 ([facility]) Body height 70 [in_i] 70 [in_i] eCW1 ([facility]) Body mass index (BMI) [Ratio] 36.73 kg/m2 36.73 kg/m2 eCW1 ([facility]) Heart rate 83 /min 83 /min eCW1 ([facility]) Respiratory rate 17 /min 17 /min eCW1 ([facility]) Patient Treatment Plan of Care Planned Activity Planned Date Details Description Data Source (s) Lactase 3000 UNIT 11/20/2020 12:00:00 AM EDT eCW1 ([facility]) 0.5 ML dulaglutide 1.5 MG/ML Auto-Injector [Trulicity] 05/21/2020 12:00:00 AM EDT eCW1 ([facility]) 0.5 ML dulaglutide 1.5 MG/ML Auto-Injector [Trulicity] 05/21/2020 12:00:00 AM EDT eCW1 ([facility]) 0.5 ML dulaglutide 1.5 MG/ML Auto-Injector [Trulicity] 05/21/2020 12:00:00 AM EDT eCW1 ([facility]) 0.5 ML dulaglutide 1.5 MG/ML Auto-Injector [Trulicity] 05/21/2020 12:00:00 AM EDT eCW1 ([facility]) 0.5 ML dulaglutide 1.5 MG/ML Auto-Injector [Trulicity] 05/21/2020 12:00:00 AM EDT eCW1 ([facility]) 0.5 ML dulaglutide 1.5 MG/ML Auto-Injector [Trulicity] 05/21/2020 12:00:00 AM EDT eCW1 ([facility]) 0.5 ML dulaglutide 1.5 MG/ML Auto-Injector [Trulicity] 05/21/2020 12:00:00 AM EDT eCW1 ([facility]) 0.5 ML dulaglutide 1.5 MG/ML Auto-Injector [Trulicity] 05/21/2020 12:00:00 AM EDT eCW1 ([facility]) 0.5 ML dulaglutide 1.5 MG/ML Auto-Injector [Trulicity] 05/21/2020 12:00:00 AM EDT eCW1 ([facility]) 0.5 ML dulaglutide 1.5 MG/ML Auto-Injector [Trulicity] 05/21/2020 12:00:00 AM EDT eCW1 ([facility]) Amlodipine 5 MG Oral Tablet 02/02/2020 12:00:00 AM EST eCW1 ([facility]) Amlodipine 5 MG Oral Tablet 02/02/2020 12:00:00 AM EST eCW1 ([facility])
[2020-12-12] MEDS ORDERED: KETOROLAC 60MG 2ML VIAL IM ONE (10:45)
--- NOTE | 2020-12-12 11:14 | REP ---
INDICATION: pain COMPARISON: None. TECHNIQUE: Three views right shoulder. FINDINGS: There is no evidence of acute fracture, dislocation, or intrinsic bone disease.There is moderate narrowing and spurring at the acromioclavicular joint. IMPRESSION: No fracture or dislocation. Degenerative changes AC joint. <Electronically signed by Berry Berry > 12/12/20 1111
--- NOTE | 2020-12-12 11:22 | REPVR ---
PROCEDURE INFORMATION: Exam: CT Cervical Spine Without Contrast Exam date and time: 12/12/2020 10:44 AM Age: 65 years old Clinical indication: Other: Pain radiating to right arm TECHNIQUE: Imaging protocol: Computed tomography images of the cervical spine without contrast. Radiation optimization: All CT scans at this facility use at least one of these dose optimization techniques: automated exposure control; mA and/or kV adjustment per patient size (includes targeted exams where dose is matched to clinical indication); or iterative reconstruction. COMPARISON: None available. FINDINGS: Vertebrae: There is reversal the normal cervical lordosis. There is no fracture. There is moderate to severe intervertebral disc space loss at C4/5, C5/6 and C6/7. C2-C3: No significant disc protrusion. No severe spinal canal stenosis. No significant neural foraminal narrowing. C3-C4: No significant disc protrusion. No severe spinal canal stenosis. No significant neural foraminal narrowing. C4-C5: There is a diffuse disc osteophyte complex. There is mild facet hypertrophy. There is severe right and moderate to severe left neural foraminal narrowing. C5-C6: There is a diffuse disc osteophyte complex. There is mild facet hypertrophy. There is moderate to severe right and severe left neural foraminal narrowing. C6-C7: There is a diffuse disc osteophyte complex. There is mild facet hypertrophy. There is severe bilateral neural foraminal narrowing. There is mild canal stenosis. C7-T1: No significant disc protrusion. No severe spinal canal stenosis. No significant neural foraminal narrowing. Soft tissues: Unremarkable. Lungs: Lung apices are normal. IMPRESSION: Degenerative disc disease and spondylosis. Changes contribute to multilevel moderate to severe neural foraminal narrowing as described. Electronically signed by: Helen Beasley On 12/12/2020 11:22:16 AM
--- NOTE | 2020-12-12 11:24 | REPVR ---
PROCEDURE INFORMATION: Exam: CT Thoracic Spine Without Contrast Exam date and time: 12/12/2020 10:44 AM Age: 65 years old Clinical indication: Other: Pain radiating to right arm TECHNIQUE: Imaging protocol: Computed tomography images of the thoracic spine without contrast. Radiation optimization: All CT scans at this facility use at least one of these dose optimization techniques: automated exposure control; mA and/or kV adjustment per patient size (includes targeted exams where dose is matched to clinical indication); or iterative reconstruction. COMPARISON: NM-WBC WHOLE BODY 02/03/2016 8:48 AM FINDINGS: Vertebrae: There is accentuation of the normal thoracic kyphosis. No acute fracture. Normal alignment. Discs/Spinal canal/Neural foramina: No significant disc protrusion. No severe spinal canal stenosis. No significant neural foraminal narrowing. Soft tissues: Unremarkable. IMPRESSION: No acute fracture, listhesis or advanced degenerative change. Electronically signed by: Helen Beasley On 12/12/2020 11:24:19 AM
[2020-12-12] MEDS ORDERED: PRED20TA PO (11:32)
[2020-12-12] MEDS ORDERED: HYDR-3713 PO (11:32)
--- NOTE | 2020-12-14 07:53 | ED PDOC ---
Post-Departure Follow-Up raiology repor tfaxed to Chloé Bryant MD Dec 14, 2020 07:53
== END 2020-12-12 11:42 | disposition home or self-care (01) ==
LOC: M ED 09:54
DX: M54.12 Radiculopathy, cervical region (principal); M50.20 Other cervical disc displacement, unspecified cervical region; M19.011 Primary osteoarthritis, right shoulder; I10 Essential (primary) hypertension; E11.9 Type 2 diabetes mellitus without complications; F32.9 Major depressive disorder, single episode, unspecified; K21.9 Gastro-esophageal reflux disease without esophagitis; Z86.73 Personal history of transient ischemic attack (TIA), and cerebral infarction without residual deficits; F17.200 Nicotine dependence, unspecified, uncomplicated; Z79.82 Long term (current) use of aspirin; Z79.84 Long term (current) use of oral hypoglycemic drugs; Z79.899 Other long term (current) drug therapy
CPT/HCPCS: 72125; 72128; 73030; 96372; 99282; J1885

== ENCOUNTER → 2020-12-27 | Outpatient (CLI) | payer MEDICARE ==
[~2020-12-27] MED LIST changes: +HYDR-3713 PO; +PRED20TA PO
[2020-12-27 12:46] LABS: BLOOD UREA NITROGEN 12 MG/DL (7-18); CARBON DIOXIDE LEVEL 30 MEQ/L (21-32); CHLORIDE LEVEL 105 MEQ/L (98-107); CREATININE FOR GFR 0.83 MG/DL (0.70-1.30); GLOMERULAR FILTRATION RATE > 60.0 (>49); GLUCOSE, FASTING 92 MG/DL (70-100); POTASSIUM SERUM 3.9 MEQ/L (3.5-5.1); SODIUM LEVEL 140 MEQ/L (136-145)
[2020-12-27 12:47] LABS: CALCIUM LEVEL 8.8 MG/DL (8.8-10.2); CHOLESTEROL LEVEL 129 MG/DL (<200); CHOLESTEROL RISK RATIO 3.583 (<5); HDL CHOLESTEROL 36 MG/DL (>40); LDL CHOLESTEROL 78 MG/DL (<100); NON-HDL-C 93 MG/DL; TRIGLYCERIDES LEVEL 73 MG/DL (<150)
[2020-12-27 13:13] LABS: CREATININE, URINE 50.4 MG/DL; MALB URINE SIEMENS < 5.0 MG/L; MAU/CREAT RATIO 9.9 MCG/MG (0.0-30.0)
== END ==
LOC: M PLALAB 09:00
PROVIDERS: ATTEND Student in an Organized Health Care Education/Training Program
DX: I10 Essential (primary) hypertension (principal); K59.1 Functional diarrhea

== ENCOUNTER → 2021-01-21 | Outpatient (RCR) | payer MEDICARE ==
[~2021-01-21] MED LIST changes: -CITA10TA5 PO; +CITA10TA7 PO
== END ==
LOC: M PT 01-14 12:32
PROVIDERS: ATTEND Orthopaedic Surgery
DX: M54.12 Radiculopathy, cervical region (principal)

== ENCOUNTER 2021-02-17 13:27 | Outpatient (RCR) | payer MEDICARE ==
[~2021-02-17 13:27] MED LIST changes: +CITA10TA5 PO; -CITA10TA7 PO
== END 2021-02-21 ==
LOC: M PT 13:27
PROVIDERS: ATTEND Orthopaedic Surgery
DX: M54.2 Cervicalgia (principal); M54.12 Radiculopathy, cervical region

== ENCOUNTER 2021-02-27 14:45 | Outpatient (RCR) | payer MEDICARE ==
[~2021-02-27 14:45] MED LIST changes: -CITA10TA5 PO; +CITA10TA7 PO
== END 2021-03-24 ==
LOC: M PT 14:45
PROVIDERS: ATTEND Orthopaedic Surgery
DX: M54.12 Radiculopathy, cervical region (principal)

== ENCOUNTER → 2021-05-08 | Outpatient (CLI) | payer MEDICARE ==
[~2021-05-08] MED LIST changes: -RIFA300C3 PO; +RIFA300C8 PO
[2021-05-08 18:31] LABS: HEMOGLOBIN A1c 5.9 %
== END ==
LOC: M PLALAB 14:29
PROVIDERS: ATTEND Student in an Organized Health Care Education/Training Program
DX: E11.9 Type 2 diabetes mellitus without complications (principal)

== ENCOUNTER → 2021-05-28 | Outpatient (CLI) | payer MEDICARE | LOC: M CARPUL 08:25 | PROVIDERS: ATTEND Student in an Organized Health Care Education/Training Program | DX: I10 Essential (primary) hypertension (principal) ==

== ENCOUNTER → 2021-10-20 | Outpatient (CLI) | payer MEDICARE ==
[2021-10-20 20:39] LABS: HEMOGLOBIN A1c 5.7 %
== END ==
LOC: M PLALAB 13:48
PROVIDERS: ATTEND Family Medicine
DX: E11.9 Type 2 diabetes mellitus without complications (principal)

== ENCOUNTER → 2021-11-05 | Outpatient (CLI) | payer MEDICARE ==
[~2021-11-05] MED LIST changes: +CARV6.25 PO; +CLON-412 PO; +HYDR12.55 PO; +LISI20TA33 PO; +OMEG350C PO; +THERTAB52 PO; +TRES1INJ2 SQ
== END ==
LOC: M LABSMTC 09:19
PROVIDERS: ATTEND Anesthesiology
DX: Z01.818 Encounter for other preprocedural examination (principal); Z11.52 Encounter for screening for COVID-19

== ENCOUNTER → 2021-12-14 | Outpatient (CLI) | payer MEDICARE | LOC: M LABSMTC 09:35 | PROVIDERS: ATTEND Anesthesiology | DX: Z01.812 Encounter for preprocedural laboratory examination (principal); Z20.822 Contact with and (suspected) exposure to COVID-19 ==

== ENCOUNTER 2021-12-19 08:42 | Day surgery (SDC) | payer MEDICARE ==
[~2021-12-19] VITALS: Ht 180.3 cm; Wt 99.5 kg
[~2021-12-19 08:42] MED LIST changes: +NS 1,000 ML IV ONE
[2021-12-19] MEDS ORDERED: LIDOCAINE 2% 100MG/5ML SDV (FOR ANES.) As Ordered ONE (09:29)
[2021-12-19] MEDS ORDERED: propofoL 200 MG/20 ML VIAL As Ordered ONE ×2 (09:30→09:54)
[2021-12-19 10:15] VITALS: BP 118/64
== END 2021-12-19 10:26 | disposition home or self-care (01) ==
LOC: M OPP 08:42
PROVIDERS: ATTEND Internal Medicine Gastroenterology
DX: Z12.11 Encounter for screening for malignant neoplasm of colon (principal); D12.6 Benign neoplasm of colon, unspecified; K64.0 First degree hemorrhoids; K57.30 Diverticulosis of large intestine without perforation or abscess without bleeding; Z79.02 Long term (current) use of antithrombotics/antiplatelets; Z79.82 Long term (current) use of aspirin; Z79.4 Long term (current) use of insulin; Z79.899 Other long term (current) drug therapy; E11.9 Type 2 diabetes mellitus without complications; I10 Essential (primary) hypertension; E78.00 Pure hypercholesterolemia, unspecified; D64.9 Anemia, unspecified; G47.30 Sleep apnea, unspecified; Z99.89 Dependence on other enabling machines and devices; F17.200 Nicotine dependence, unspecified, uncomplicated; Z86.73 Personal history of transient ischemic attack (TIA), and cerebral infarction without residual deficits; Z80.3 Family history of malignant neoplasm of breast

== ENCOUNTER → 2022-01-20 | Outpatient (CLI) | payer MEDICARE ==
[~2022-01-20] MED LIST changes: -NS 1,000 ML IV ONE
[2022-01-20 15:14] LABS: BASO % 0.5 % (0.0-1.0); EOS # 0.2 10^3/uL (0.0-0.5); EOS % 2.2 % (0.0-3.0); HEMATOCRIT 46.2 % (42.0-52.0); HEMOGLOBIN 15.5 g/dl (13.5-17.5); LYMPH # 1.7 10^3/uL (1.5-5.0); LYMPH % 20.2 % (24.0-44.0); MEAN CORPUSCULAR HEMOGLOBIN 31.8 pg (27.0-33.0); MEAN CORPUSCULAR HGB CONC 33.5 g/dl (32.0-36.5); MEAN CORPUSCULAR VOLUME 94.7 fl (80.0-96.0); MONO # 0.5 10^3/uL (0.0-0.8); MONO % 5.2 % (2.0-8.0); NEUTROPHILS # 6.1 10^3/uL (1.5-8.5); NEUTROPHILS % 71.6 % (36.0-66.0); PLATELET COUNT, AUTOMATED 161 10^3/uL (150-450); RED BLOOD COUNT 4.88 10^6/uL (4.30-6.10); WHITE BLOOD COUNT 8.6 10^3/uL (4.0-10.0)
[2022-01-20 15:25] LABS: CHLORIDE LEVEL 104 MMOL/L (98-107); POTASSIUM SERUM 4.4 MMOL/L (3.5-5.1); SODIUM LEVEL 140 MMOL/L (136-145)
[2022-01-20 15:27] LABS: ALBUMIN 3.9 G/DL (3.2-5.2); CARBON DIOXIDE LEVEL 28 MMOL/L (20-31)
[2022-01-20 15:31] LABS: TRIGLYCERIDES LEVEL 168 MG/DL (<150)
[2022-01-20 15:32] LABS: BLOOD UREA NITROGEN 15 MG/DL (9-23); CALCIUM LEVEL 9.6 MG/DL (8.3-10.6); GLUCOSE, FASTING 159 MG/DL (74-106)
[2022-01-20 15:33] LABS: ALKALINE PHOSPHATASE 100 U/L (46-116); BILIRUBIN,TOTAL 0.4 MG/DL (0.3-1.2); TOTAL PROTEIN 6.9 G/DL (5.7-8.2)
[2022-01-20 15:34] LABS: ALT/SGPT 34 U/L (7.0-40); AST/SGOT 22 U/L (<34); CHOLESTEROL LEVEL 123 MG/DL (<200); CHOLESTEROL RISK RATIO 2.91 (<5); CREATININE FOR GFR 0.86 MG/DL (0.70-1.30); GLOMERULAR FILTRATION RATE > 60.0 (>49); HDL CHOLESTEROL 42.2 MG/DL (>40); LDL CHOLESTEROL 47.2 MG/DL (<100); NON-HDL-C 81 MG/DL
[2022-01-20 17:31] LABS: HEMOGLOBIN A1c 5.3 % (4.0-6.0)
== END ==
LOC: M PLALAB 11:14
PROVIDERS: ATTEND Student in an Organized Health Care Education/Training Program
DX: Z71.41 Alcohol abuse counseling and surveillance of alcoholic (principal); E11.9 Type 2 diabetes mellitus without complications; R25.2 Cramp and spasm

== ENCOUNTER → 2022-09-08 | Outpatient (CLI) | payer MEDICARE ==
[2022-09-08 18:44] LABS: BASO % 0.4 % (0.0-1.0); EOS # 0.2 10^3/uL (0.0-0.5); EOS % 2.1 % (0.0-3.0); HEMATOCRIT 41.7 % (42.0-52.0); HEMOGLOBIN 14.2 g/dl (13.5-17.5); LYMPH # 1.6 10^3/uL (1.5-5.0); LYMPH % 15.7 % (24.0-44.0); MEAN CORPUSCULAR HEMOGLOBIN 31.6 pg (27.0-33.0); MEAN CORPUSCULAR HGB CONC 34.1 g/dl (32.0-36.5); MEAN CORPUSCULAR VOLUME 92.9 fl (80.0-96.0); MONO # 0.8 10^3/uL (0.0-0.8); MONO % 7.7 % (2.0-8.0); NEUTROPHILS # 7.6 10^3/uL (1.5-8.5); NEUTROPHILS % 73.8 % (36.0-66.0); PLATELET COUNT, AUTOMATED 189 10^3/uL (150-450); RED BLOOD COUNT 4.49 10^6/uL (4.30-6.10); WHITE BLOOD COUNT 10.3 10^3/uL (4.0-10.0)
[2022-09-08 19:07] LABS: ALBUMIN 3.8 G/DL (3.2-5.2); BILIRUBIN,TOTAL 0.4 MG/DL (0.3-1.2); CHOLESTEROL RISK RATIO 2.63 (<5); CREATININE FOR GFR 1.31 MG/DL (0.70-1.30); GLOMERULAR FILTRATION RATE 58.5 (>49); HDL CHOLESTEROL 34.6 MG/DL (>40); LDL CHOLESTEROL 13.8 MG/DL (<100); NON-HDL-C 56.4 MG/DL; POTASSIUM SERUM 4.8 MMOL/L (3.5-5.1); TOTAL PROTEIN 6.5 G/DL (5.7-8.2)
[2022-09-08 19:17] LABS: HEMOGLOBIN A1c 5.5 % (4.0-6.0)
== END ==
LOC: M PLALAB 14:52
PROVIDERS: ATTEND Student in an Organized Health Care Education/Training Program
DX: E78.5 Hyperlipidemia, unspecified (principal); E11.9 Type 2 diabetes mellitus without complications; D50.8 Other iron deficiency anemias

== ENCOUNTER → 2022-09-17 | Outpatient (CLI) | payer MEDICARE ==
[2022-09-17 13:35] LABS: THYROID STIMULATING HORMONE 0.632 uIU/ML (0.55-4.78)
[2022-09-17 13:36] LABS: FOLATE 23.12 NG/ML (>5.4)
== END ==
LOC: M PLALAB 09:21
PROVIDERS: ATTEND Student in an Organized Health Care Education/Training Program
DX: R26.89 Other abnormalities of gait and mobility (principal)

== ENCOUNTER → 2023-01-18 | Outpatient (CLI) | payer MEDICARE ==
[2023-01-18 15:52] LABS: ALBUMIN 3.9 G/DL (3.2-5.2); BLOOD UREA NITROGEN 21 MG/DL (9-23); CALCIUM LEVEL 9.1 MG/DL (8.3-10.6); CARBON DIOXIDE LEVEL 29 MMOL/L (20-31); CHLORIDE LEVEL 105 MMOL/L (98-107); CREATININE FOR GFR 0.82 MG/DL (0.70-1.30); GLOMERULAR FILTRATION RATE > 60.0 (>49); GLUCOSE, FASTING 82 MG/DL (74-106); PHOSPHORUS LEVEL 3.2 MG/DL (2.4-5.1); POTASSIUM SERUM 4.2 MMOL/L (3.5-5.1); SODIUM LEVEL 141 MMOL/L (136-145)
== END ==
LOC: M PLALAB 13:11
PROVIDERS: ATTEND Student in an Organized Health Care Education/Training Program
DX: N17.9 Acute kidney failure, unspecified (principal)

== ENCOUNTER → 2023-01-18 | Outpatient (CLI) | payer MEDICARE ==
[2023-01-18 15:55] LABS: FOLATE > 24.00 NG/ML (>5.4); VITAMIN B12 LEVEL 420 PG/ML (211-911)
== END ==
LOC: M PLALAB 13:14
PROVIDERS: ATTEND Psychiatry & Neurology Neurology
DX: G62.9 Polyneuropathy, unspecified (principal); E53.8 Deficiency of other specified B group vitamins; E51.9 Thiamine deficiency, unspecified; E53.1 Pyridoxine deficiency; E56.0 Deficiency of vitamin E; R26.89 Other abnormalities of gait and mobility

== ENCOUNTER → 2023-04-13 | Outpatient (CLI) | payer MEDICARE | LOC: M RAD 10:19 | PROVIDERS: ATTEND Student in an Organized Health Care Education/Training Program | DX: F17.210 Nicotine dependence, cigarettes, uncomplicated (principal) ==

== ENCOUNTER → 2023-06-30 | Outpatient (CLI) | payer MEDICARE ==
[~2023-06-30] MED LIST changes: +RIFA300C62 PO; -RIFA300C8 PO
== END ==
LOC: M PLALAB 08:57
PROVIDERS: ATTEND Student in an Organized Health Care Education/Training Program
DX: Z00.00 Encounter for general adult medical examination without abnormal findings (principal); E11.9 Type 2 diabetes mellitus without complications

== ENCOUNTER → 2023-08-18 | Outpatient (CLI) | payer MEDICARE | LOC: M SOG 07:58 | PROVIDERS: ATTEND Orthopaedic Surgery | DX: M54.2 Cervicalgia (principal); M47.892 Other spondylosis, cervical region ==

== ENCOUNTER → 2023-11-02 | Outpatient (CLI) | payer MEDICARE ==
[2023-11-02 16:12] LABS: HEMOGLOBIN A1c 5.3 % (4.0-6.0)
[2023-11-02 16:18] LABS: BLOOD UREA NITROGEN 8 MG/DL (9-23); CALCIUM LEVEL 9.7 MG/DL (8.3-10.6); CARBON DIOXIDE LEVEL 29 MMOL/L (20-31); CHLORIDE LEVEL 108 MMOL/L (98-107); CHOLESTEROL LEVEL 113 MG/DL (<200); CHOLESTEROL RISK RATIO 3.01 (<5); CREATININE FOR GFR 0.74 MG/DL (0.70-1.30); GLOMERULAR FILTRATION RATE > 60.0 (>49); GLUCOSE, FASTING 64 MG/DL (74-106); HDL CHOLESTEROL 37.5 MG/DL (>40); LDL CHOLESTEROL 48.1 MG/DL (<100); NON-HDL-C 75.5 MG/DL; POTASSIUM SERUM 3.2 MMOL/L (3.5-5.1); SODIUM LEVEL 142 MMOL/L (136-145); TRIGLYCERIDES LEVEL 137 MG/DL (<150)
[2023-11-02 16:19] LABS: TOTAL 25(OH) VITAMIN D 50.4 NG/ML (20.0-100.0)
== END ==
LOC: M PLALAB 13:54
PROVIDERS: ATTEND Student in an Organized Health Care Education/Training Program
DX: Z00.00 Encounter for general adult medical examination without abnormal findings (principal); E78.5 Hyperlipidemia, unspecified; E11.9 Type 2 diabetes mellitus without complications

== ENCOUNTER → 2023-11-29 | Outpatient (CLI) | payer MEDICARE ==
[~2023-11-29] MED LIST changes: +GABA-1172 PO; -GABA-282 PO
== END ==
LOC: M SOG 07:18
PROVIDERS: ATTEND Orthopaedic Surgery
DX: M25.561 Pain in right knee (principal); M25.562 Pain in left knee; M17.0 Bilateral primary osteoarthritis of knee

== ENCOUNTER → 2023-12-03 | Outpatient (CLI) | payer MEDICARE | LOC: M PLARAD 13:31 | PROVIDERS: ATTEND Orthopaedic Surgery | DX: M48.02 Spinal stenosis, cervical region (principal) ==

== ENCOUNTER → 2024-03-09 | Outpatient (CLI) | payer MEDICARE ==
[2024-03-09 17:58] LABS: C REACTIVE PROTEIN QUANTITATIV < 0.50 MG/DL (<1.0)
[2024-03-15 09:55] LABS: ALBUMIN 4.1 G/DL (3.2-5.2); ALKALINE PHOSPHATASE 81 U/L (40-129); ALT/SGPT 44 U/L (7.0-40); AST/SGOT 26 U/L (<34); BILIRUBIN,TOTAL 0.3 MG/DL (0.3-1.2); BLOOD UREA NITROGEN 20 MG/DL (9-23); CALCIUM LEVEL 9.2 MG/DL (8.3-10.6); CARBON DIOXIDE LEVEL 26 MMOL/L (20-31); CHLORIDE LEVEL 106 MMOL/L (98-107); CREATININE FOR GFR 0.85 MG/DL (0.70-1.30); GLOMERULAR FILTRATION RATE > 60.0 (>49); GLUCOSE, FASTING 257 MG/DL (74-106); POTASSIUM SERUM 4.3 MMOL/L (3.5-5.1); SODIUM LEVEL 142 MMOL/L (136-145); TOTAL PROTEIN 7.2 G/DL (5.7-8.2)
== END ==
LOC: M PLALAB 14:55
PROVIDERS: ATTEND Student in an Organized Health Care Education/Training Program
DX: M21.41 Flat foot [pes planus] (acquired), right foot (principal); R19.7 Diarrhea, unspecified; E11.9 Type 2 diabetes mellitus without complications

== ENCOUNTER → 2024-04-04 | Outpatient (REF) | payer MEDICARE | LOC: M SFHCPLAZ 13:24 | PROVIDERS: ATTEND Student in an Organized Health Care Education/Training Program | DX: M21.41 Flat foot [pes planus] (acquired), right foot (principal); R19.7 Diarrhea, unspecified ==

== ENCOUNTER → 2024-05-17 | Outpatient (CLI) | payer MEDICARE ==
[2024-05-17 17:40] LABS: BASO % 0.5 % (0.0-1.0); EOS # 0.3 10^3/uL (0.0-0.5); EOS % 4.2 % (0.0-3.0); HEMATOCRIT 40.4 % (42.0-52.0); HEMOGLOBIN 14.5 g/dl (13.5-17.5); LYMPH % 27.5 % (24.0-44.0); MEAN CORPUSCULAR HEMOGLOBIN 32.9 pg (27.0-33.0); MEAN CORPUSCULAR HGB CONC 35.9 g/dl (32.0-36.5); MEAN CORPUSCULAR VOLUME 91.6 fl (80.0-96.0); MONO # 0.5 10^3/uL (0.0-0.8); MONO % 6.8 % (2.0-8.0); NEUTROPHILS # 4.5 10^3/uL (1.5-8.5); NEUTROPHILS % 60.6 % (36.0-66.0); PLATELET COUNT, AUTOMATED 157 10^3/uL (150-450); RED BLOOD COUNT 4.41 10^6/uL (4.30-6.10); WHITE BLOOD COUNT 7.4 10^3/uL (4.0-10.0)
[2024-05-17 18:10] LABS: ALKALINE PHOSPHATASE 90 U/L (40-129); ALT/SGPT 53 U/L (7.0-40); AST/SGOT 28 U/L (<34); BILIRUBIN,TOTAL 0.2 MG/DL (0.3-1.2); BLOOD UREA NITROGEN 19 MG/DL (9-23); CALCIUM LEVEL 8.6 MG/DL (8.3-10.6); CARBON DIOXIDE LEVEL 26 MMOL/L (20-31); CHLORIDE LEVEL 105 MMOL/L (98-107); CREATININE FOR GFR 0.79 MG/DL (0.70-1.30); GLOMERULAR FILTRATION RATE > 60.0 (>49); GLUCOSE, FASTING 260 MG/DL (74-106); HEMOGLOBIN A1c 8.3 % (4.0-6.0); SODIUM LEVEL 139 MMOL/L (136-145)
== END ==
LOC: M PLALAB 16:00
PROVIDERS: ATTEND Student in an Organized Health Care Education/Training Program
DX: R19.7 Diarrhea, unspecified (principal); Z79.899 Other long term (current) drug therapy

== ENCOUNTER → 2024-08-23 | Outpatient (CLI) | payer MEDICARE ==
[2024-08-23 14:45] LABS: ESTIMATED AVERAGE GLUCOSE 120.0 MG/DL (60-110)
== END ==
LOC: M PLALAB 08:31
PROVIDERS: ATTEND Student in an Organized Health Care Education/Training Program
DX: Z00.00 Encounter for general adult medical examination without abnormal findings (principal); R19.7 Diarrhea, unspecified; Z12.5 Encounter for screening for malignant neoplasm of prostate; E11.9 Type 2 diabetes mellitus without complications
CPT/HCPCS: 36415; 83036; G0103

== ENCOUNTER → 2024-09-07 | Outpatient (CLI) | payer MEDICARE | LOC: M RAD 07:41 | PROVIDERS: ATTEND Physician Assistant | DX: M50.01 Cervical disc disorder with myelopathy, high cervical region (principal); M47.812 Spondylosis without myelopathy or radiculopathy, cervical region ==

== ENCOUNTER → 2024-09-14 | Outpatient (CLI) | payer MEDICARE | LOC: M RAD 06:38 | PROVIDERS: ATTEND Student in an Organized Health Care Education/Training Program | DX: Z12.2 Encounter for screening for malignant neoplasm of respiratory organs (principal); F17.210 Nicotine dependence, cigarettes, uncomplicated; J98.11 Atelectasis; J84.10 Pulmonary fibrosis, unspecified; I70.0 Atherosclerosis of aorta; I25.10 Atherosclerotic heart disease of native coronary artery without angina pectoris ==

== ENCOUNTER → 2024-09-27 | Outpatient (CLI) | payer MEDICARE | LOC: M PLAIMG 07:31 | PROVIDERS: ATTEND Physician Assistant | DX: M50.01 Cervical disc disorder with myelopathy, high cervical region (principal); M25.78 Osteophyte, vertebrae; M47.812 Spondylosis without myelopathy or radiculopathy, cervical region; M46.02 Spinal enthesopathy, cervical region ==

== ENCOUNTER → 2024-11-08 | Outpatient (CLI) | payer MEDICARE | LOC: M RAD 12:25 | PROVIDERS: ATTEND Physician Assistant | DX: M50.022 Cervical disc disorder at C5-C6 level with myelopathy (principal); M47.812 Spondylosis without myelopathy or radiculopathy, cervical region; M25.78 Osteophyte, vertebrae ==

== ENCOUNTER → 2024-12-06 | Outpatient (CLI) | payer MEDICARE ==
[2024-12-06 10:30] LABS: BASO # 0.0 10^3/uL (0.0-0.2); BASO % 0.6 % (0.0-1.0); EOS # 0.3 10^3/uL (0.0-0.5); EOS % 4.3 % (0.0-3.0); LYMPH # 1.6 10^3/uL (1.5-5.0); LYMPH % 22.5 % (24.0-44.0); MONO # 0.5 10^3/uL (0.0-0.8); MONO % 7.2 % (2.0-8.0); NEUTROPHILS # 4.7 10^3/uL (1.5-8.5); NEUTROPHILS % 65.1 % (36.0-66.0); PLATELET COUNT, AUTOMATED 174 10^3/uL (150-450)
[2024-12-06 10:42] LABS: INR 0.93
[2024-12-06 10:54] LABS: CALCIUM LEVEL 9.5 MG/DL (8.3-10.6); CARBON DIOXIDE LEVEL 30 MMOL/L (20-31); CHLORIDE LEVEL 101 MMOL/L (98-107); CREATININE FOR GFR 0.91 MG/DL (0.70-1.30); GLOMERULAR FILTRATION RATE > 90.0 (>49); POTASSIUM SERUM 4.0 MMOL/L (3.5-5.1); SODIUM LEVEL 141 MMOL/L (136-145)
== END ==
LOC: M PLALAB 08:50
PROVIDERS: ATTEND Student in an Organized Health Care Education/Training Program
DX: Z01.818 Encounter for other preprocedural examination (principal)

== ENCOUNTER → 2024-12-08 | Outpatient (CLI) | payer MEDICARE ==
[~2024-12-08] MED LIST changes: +BAYE325T13 PO; +CITA20TA7 PO; +GABA-1490 PO; +LISI40TA10 PO; +TIZA1TAB12 PO
[2024-12-08 16:12] LABS: APPEARANCE, URINE CLEAR (CLEAR); BACTERIA, URINE AUTO NEGATIVE (NEGATIVE); BILIRUBIN, URINE AUTO NEGATIVE (NEGATIVE); BLOOD, URINE BLOOD NEGATIVE (NEGATIVE); GLUCOSE, URINE (UA) AUTO NEGATIVE (NEGATIVE); KETONE, URINE AUTO NEGATIVE (NEGATIVE); LEUKOCYTE ESTERASE, URINE AUTO NEGATIVE (NEGATIVE); NITRITE, URINE AUTO NEGATIVE (NEGATIVE); PROTEIN, URINE AUTO NEGATIVE (NEGATIVE); RBC, URINE AUTO 0 /HPF (0-3); SPECIFIC GRAVITY URINE AUTO 1.003 (1.002-1.035); SQUAMOUS EPITHELIAL CELL UR AU 0 /HPF (0-6); UROBILINOGEN, URINE AUTO 0.2 mg/dL (0.0-2.0); WBC, URINE AUTO 0 /HPF (0-3)
[2024-12-08 16:42] LABS: CREATININE, URINE 19.2 MG/DL; MALB URINE SIEMENS < 3.0 MG/L
== END ==
LOC: M PLALAB 13:32
PROVIDERS: ATTEND Student in an Organized Health Care Education/Training Program
DX: Z01.818 Encounter for other preprocedural examination (principal); Z79.899 Other long term (current) drug therapy

== ENCOUNTER 2024-12-12 06:08 | Observation (INO) | payer MEDICARE ==
[~2024-12-12] VITALS: Ht 180.3 cm; Wt 104.1 kg
[~2024-12-12 06:08] MED LIST changes: -BAYE325T13 PO; -CITA20TA7 PO; -GABA-1490 PO; -LISI40TA10 PO; -TIZA1TAB12 PO
[2024-12-12] MEDS ORDERED: LR 1,000 ML IV SCH (06:15)
[2024-12-12] MEDS ORDERED: REMIFENTANIL 1MG VIAL As Ordered ONE (07:05)
[2024-12-12] MEDS ORDERED: PROPOFOL 1,000 MG/100 ML VIAL As Ordered ONE (07:05)
[2024-12-12] MEDS ORDERED: ACETAMINOPHEN 1000MG/100ML IV BAG As Ordered ONE (07:06)
[2024-12-12] MEDS ORDERED: dexAMETHasone 4 MG/ML 1 ML VIAL As Ordered ONE (07:06)
[2024-12-12] MEDS ORDERED: MIDAZOLAM INJ 2 MG/2 ML VIAL As Ordered ONE (07:06)
[2024-12-12] MEDS ORDERED: ONDANSETRON 4MG/2ML VIAL As Ordered ONE (07:06)
[2024-12-12] MEDS ORDERED: ROCURONIUM BROMIDE 50MG/5ML VIAL As Ordered ONE (07:07)
[2024-12-12] MEDS ORDERED: PHENYLephrine 500MCG 5ML (100MCG/ML) SYRINGE As Ordered ONE (07:07)
[2024-12-12] MEDS ORDERED: SUCCINYLCHOLINE 100MG/5ML SYRINGE As Ordered ONE (07:07)
[2024-12-12] MEDS ORDERED: LIDOCAINE 2% 100 MG/5 ML SDV (FOR ANES.) As Ordered ONE (07:07)
[2024-12-12] MEDS ORDERED: PHENYLEPHRINE 10MG/ML 1ML VIAL As Ordered ONE (07:19)
[2024-12-12] MEDS ORDERED: BAYE325T13 PO (07:34)
[2024-12-12] MEDS ORDERED: TIZA1TAB12 PO (07:34)
[2024-12-12] MEDS ORDERED: CITA20TA7 PO (07:34)
[2024-12-12] MEDS ORDERED: AMLO1TAB24 PO (07:34)
[2024-12-12] MEDS ORDERED: LISI40TA10 PO (07:34)
[2024-12-12] MEDS ORDERED: ATOR40TA75 PO (07:34)
[2024-12-12] MEDS ORDERED: GABA-1490 PO (07:34)
[2024-12-12] MEDS ORDERED: HOME MED LIST COMPLETE! XX SCH (07:35)
[2024-12-12] MEDS: ceFAZolin SOD 2 GM IV ONCE IV ONE (08:22)
[2024-12-12] MEDS ORDERED: HYDROmorphone HCL 2 MG/ML 1 ML VIAL As Ordered ONE (09:09)
[2024-12-12] MEDS: LIDOCAINE W/EPINEPHrine 1% 20 ML VIAL As Ordered ONE (09:25)
[2024-12-12] MEDS ORDERED: GLYCOPYRROLATE INJ 0.2 MG/ML 2 ML VIAL As Ordered ONE (10:10)
[2024-12-12] MEDS ORDERED: CALCIUM CHLORIDE 10% 1 GM/10 ML SYR As Ordered ONE (13:23)
[2024-12-12] MEDS: MAG SULF 1GM/100ML (MAG RUN) 1 GM in IV 1 EA IV SCH (13:27)
[2024-12-12] MEDS ORDERED: POTASSIUM CHLORIDE 10MEQ/100ML SWI As Ordered ONE (13:31)
[2024-12-12] MEDS: KCL 10MEQ/100ML SWI (KRUN) 10 MEQ in IV 1 EA IV SCH (13:43)
[2024-12-12] MEDS ORDERED: GLUCAGON INJ 1 MG VIAL SC PRN (14:20)
[2024-12-12] MEDS ORDERED: ACETAMINOPHEN 325 MG TAB PO PRN (14:20)
[2024-12-12] MEDS: LR 1,000 ML IV SCH (14:20)
[2024-12-12] MEDS ORDERED: HYDROMORPHONE HCL 0.5 MG/0.5 ML SYRINGE IV PRN (14:20)
[2024-12-12] MEDS ORDERED: DEXTROSE 50% 50 ML SYRINGE IV PRN (14:20)
[2024-12-12] MEDS ORDERED: ONDANSETRON 4MG/2ML VIAL IV PRN ×2 (14:20→14:40)
[2024-12-12] MEDS ORDERED: GLUCOSE 4 GM CHEW PO PRN (14:20)
[2024-12-12] MEDS ORDERED: hydrALAZINE 20 MG/ML 1 ML VIAL IV PRN (14:40)
[2024-12-12] MEDS ORDERED: METOPROLOL 5 MG/5 ML VIAL IV PRN (14:40)
[2024-12-12] MEDS: INSULIN LISPRO (NovoLOG) PER UNIT SC PRN (15:32)
[2024-12-12] MEDS: CYCLOBENZAPRINE 10 MG TABLET PO PRN (15:42)
[2024-12-12] MEDS: INSULIN LISPRO (NovoLOG) PER UNIT SC SCH ×2 (17:30→21:00)
[2024-12-12] MEDS ORDERED: INSULIN LISPRO (NovoLOG) PER UNIT SC SCH (18:00)
[2024-12-12] MEDS: ACETAMINOPHEN 325 MG TAB PO SCH (18:20)
[2024-12-12] MEDS: ceFAZolin SODIUM 2 GM in DEXTROSE 5% (D5W) ADV/MINI-BAG 50 ML IV SCH (18:20)
[2024-12-12 19:31] VITALS: BP 131/61; TEMP 98.1; O2SAT 92
[2024-12-12 20:00] VITALS: BP 127/60; TEMP 98.3; O2SAT 93
[2024-12-12 20:30] VITALS: BP 122/64; TEMP 98.1; O2SAT 94
[2024-12-12 21:35] VITALS: BP 134/62; TEMP 98.3; O2SAT 95
[2024-12-12] MEDS: SENNA 8.6 MG TAB PO SCH (21:49)
[2024-12-12] MEDS: THIAMINE 100 MG TAB PO SCH (21:50)
[2024-12-12] MEDS: DOCUSATE SODIUM 100 MG CAPSULE PO SCH (21:50)
[2024-12-12 22:30] VITALS: BP 133/67; TEMP 98.1; O2SAT 94
[2024-12-12 23:30] VITALS: BP 118/68; TEMP 98.1; O2SAT 95
[2024-12-13] VITALS (9 sets, daily range): BP systolic 119–150; BP diastolic 57–88; TEMP 97.2–97.9; O2SAT 92–96
[2024-12-13 04:57] LABS: PLATELET COUNT, AUTOMATED 144 10^3/uL (150-450)
[2024-12-13 05:19] LABS: CALCIUM LEVEL 8.5 MG/DL (8.3-10.6); CARBON DIOXIDE LEVEL 26 MMOL/L (20-31); CHLORIDE LEVEL 107 MMOL/L (98-107); CREATININE FOR GFR 0.73 MG/DL (0.70-1.30); GLOMERULAR FILTRATION RATE > 90.0 (>49); POTASSIUM SERUM 4.2 MMOL/L (3.5-5.1); SODIUM LEVEL 142 MMOL/L (136-145)
[2024-12-13] MEDS: NS (Normal Saline) 0.9% 1,000 ML IV ONE (08:00)
[2024-12-13] MEDS: OMEPRAZOLE 20MG CAP PO SCH (09:35)
[2024-12-13] MEDS: FOLIC ACID 1 MG TAB PO SCH (09:36)
[2024-12-13] MEDS: amLODIPine 5 MG TAB PO SCH (09:36)
[2024-12-13] MEDS: MULTIVITAMINS/MINERALS THERAP 1 TAB PO SCH (09:37)
[2024-12-13] MEDS: LanTUS (INSULIN GLARGINE INJ) 1 UNITS/0.01 ML SC SCH (09:39)
[2024-12-13] MEDS: CHLORASEPTIC SPRAY MT PRN (13:54)
[2024-12-13] MEDS: LIDOCAINE 5% PATCH TD SCH (15:39)
[2024-12-13] MEDS: ATORVASTATIN 20 MG TAB PO SCH (17:00)
[2024-12-13] MEDS ORDERED: HEPARIN SOD 5000 UNITS/ML 1 ML VIAL/SYRINGE SQ SCH (21:00)
[2024-12-13] MEDS: CALCIUM CARBONATE 500 MG CHEW U/D PO PRN (23:04)
[2024-12-14] VITALS (9 sets, daily range): BP systolic 102–134; BP diastolic 53–74; PULSE 78; TEMP 97–97.8; O2SAT 92–98
[2024-12-14 05:15] LABS: PLATELET COUNT, AUTOMATED 136 10^3/uL (150-450)
[2024-12-14 05:30] LABS: CALCIUM LEVEL 8.5 MG/DL (8.3-10.6); CARBON DIOXIDE LEVEL 29 MMOL/L (20-31); CHLORIDE LEVEL 106 MMOL/L (98-107); CREATININE FOR GFR 0.80 MG/DL (0.70-1.30); GLOMERULAR FILTRATION RATE > 90.0 (>49); POTASSIUM SERUM 3.9 MMOL/L (3.5-5.1); SODIUM LEVEL 142 MMOL/L (136-145)
[2024-12-15 04:00] VITALS: BP 115/68; TEMP 97.5; O2SAT 92
[2024-12-15 05:34] LABS: PLATELET COUNT, AUTOMATED 142 10^3/uL (150-450)
[2024-12-15 06:00] LABS: CALCIUM LEVEL 9.0 MG/DL (8.3-10.6); CARBON DIOXIDE LEVEL 27 MMOL/L (20-31); CHLORIDE LEVEL 103 MMOL/L (98-107); CREATININE FOR GFR 0.75 MG/DL (0.70-1.30); GLOMERULAR FILTRATION RATE > 90.0 (>49); POTASSIUM SERUM 3.9 MMOL/L (3.5-5.1); SODIUM LEVEL 138 MMOL/L (136-145)
[2024-12-15 08:00] VITALS: BP 122/58; TEMP 97; O2SAT 96
[2024-12-15 09:48] VITALS: BP 122/58
[2024-12-15] MEDS ORDERED: ACET-897 PO (10:42)
[2024-12-15] MEDS ORDERED: SENN18TA PO (10:42)
[2024-12-15] MEDS ORDERED: COLA100C5 PO (10:42)
[2024-12-15] MEDS ORDERED: CYCL10TA20 PO (10:42)
[2024-12-15] MEDS ORDERED: OXYC-517 PO (11:22)
== END 2024-12-15 12:45 | disposition home or self-care (01) ==
LOC: M SDC 06:08 → M PCU 06:09
PROVIDERS: ADMIT Internal Medicine Nephrology; ATTEND Internal Medicine Nephrology
DX: M50.022 Cervical disc disorder at C5-C6 level with myelopathy (principal); M50.023 Cervical disc disorder at C6-C7 level with myelopathy; I10 Essential (primary) hypertension; E78.5 Hyperlipidemia, unspecified; E11.9 Type 2 diabetes mellitus without complications; K21.9 Gastro-esophageal reflux disease without esophagitis; Z86.73 Personal history of transient ischemic attack (TIA), and cerebral infarction without residual deficits; G47.33 Obstructive sleep apnea (adult) (pediatric); Z79.82 Long term (current) use of aspirin; Z79.899 Other long term (current) drug therapy
CPT/HCPCS: 20930; 22551; 22552; 22853; 36415; 72040; 76000; 80048; 82330; 82947; 84132; 84295; 84484; 85014; 85027; 86850; 86900; 86901; 88304; 93005; 96365; 97161; C1713; G0378; J0131; J0330; J0618; J0688; J1100; J1171; J1596; J1815; J2250; J2371; J2405; J3010; J3475

== ENCOUNTER → 2025-01-10 | Outpatient (CLI) | payer MEDICARE ==
[~2025-01-10] MED LIST changes: +ACET-897 PO; +BAYE325T13 PO; +CITA20TA7 PO; +COLA100C5 PO; +CYCL10TA20 PO; +GABA-1490 PO; +LISI40TA10 PO; +OXYC-517 PO; +SENN18TA PO; +TIZA1TAB12 PO
== END ==
LOC: M RAD 16:17
PROVIDERS: ATTEND Neurological Surgery
DX: Z98.1 Arthrodesis status (principal)

== ENCOUNTER → 2025-01-26 | Outpatient (CLI) | payer MEDICARE | LOC: M RAD 10:43 | PROVIDERS: ATTEND Neurological Surgery | DX: Z98.1 Arthrodesis status (principal) ==